=== PATIENT | female | born 1950 | race Caucasian/White ===

== ENCOUNTER 2018-12-13 10:35 | Outpatient (REF) | payer MEDICARE, OTHER, SELFPAY ==
[2018-12-13 22:49] LABS: Anion Gap 15.1 mmol/L (3-11); BUN 16 mg/dL (7-18); CO2 25.9 mmol/L (21.0-32.0); CREATININE 0.76 mg/dL (0.55-1.02); Calcium 9.5 mg/dL (8.5-10.1); Chloride 101 mmol/L (98-107); Glucose 96 mg/dL (70-100); Potassium 4.5 mmol/L (3.5-5.1); Sodium 142 mmol/L (136-145)
[2018-12-15 12:22] LABS: Lyme Ab w Rflx to Lyme Confirm Negative
[2018-12-16 16:12] LABS: Anaplasma phagocytophilum Negative (Negative); B. miyamotoi PCR Negative (Negative); Babesia divergens/MO-1 Negative (Negative); Babesia duncani Negative (Negative); Babesia microti Negative (Negative); Ehrlichia chaffeensis Negative (Negative); Ehrlichia ewingii/canis Negative (Negative); Ehrlichia muris eauclairensis Negative (Negative)
== END 2018-12-13 10:55 ==
LOC: NCHCN 10:35
PROVIDERS: PCP Physician Assistant Medical; Visit Provider Physician Assistant Medical
DX: I10 Essential (primary) hypertension (principal); R25.1 Tremor, unspecified
CPT/HCPCS: 80048; 87798; 86618

== ENCOUNTER 2019-03-02 20:49 | Outpatient (REF) | payer MEDICARE, OTHER, SELFPAY ==
[2019-03-02 21:53] LABS: ALT 32 U/L (14-59); AST 20 U/L (15-37); Albumin 3.9 g/dL (3.4-5.0); Alkaline Phosphatase 127 U/L (46-116); Anion Gap 9.2 mmol/L (3-11); BUN 19 mg/dL (7-18); Bilirubin, Total 0.3 mg/dL (0.2-1.0); CO2 26.8 mmol/L (21.0-32.0); CREATININE 0.98 mg/dL (0.55-1.02); Calcium 9.2 mg/dL (8.5-10.1); Calculated LDL 176 mg/dL; Chloride 105 mmol/L (98-107); Cholesterol 247 mg/dL (50-200); Estimated GFR 56.44 (mL/min/1.73m2); Glucose 110 mg/dL (70-100); HDL Cholesterol 40 mg/dL (40-60); Potassium 4.1 mmol/L (3.5-5.1); Sodium 141 mmol/L (136-145); Total Protein 7.7 g/dL (6.4-8.2); Triglyceride 158 mg/dL (30-150)
== END 2019-03-02 21:09 ==
LOC: NCHCN 20:49
PROVIDERS: PCP Physician Assistant Medical; Visit Provider Physician Assistant Medical
DX: E78.2 Mixed hyperlipidemia (principal)
CPT/HCPCS: 80053; 80061

== ENCOUNTER 2020-01-09 14:07 | Outpatient (REF) | payer MEDICARE, OTHER, SELFPAY ==
[2020-01-09 19:24] LABS: ALT 33 U/L (14-59); AST 20 U/L (15-37); Albumin 4.1 g/dL (3.4-5.0); Alkaline Phosphatase 125 U/L (46-116); Anion Gap 7.1 mmol/L (3-11); BUN 17 mg/dL (7-18); Bilirubin, Total 0.3 mg/dL (0.2-1.0); CO2 30.9 mmol/L (21.0-32.0); CREATININE 0.74 mg/dL (0.55-1.02); Calcium 9.4 mg/dL (8.5-10.1); Calculated LDL 187 mg/dL (<100); Chloride 104 mmol/L (98-107); Cholesterol 265 mg/dL (<200); Glucose 89 mg/dL (74-106); HDL Cholesterol 45 mg/dL (40-60); Potassium 4.4 mmol/L (3.5-5.1); Sodium 142 mmol/L (136-145); Total Protein 7.4 g/dL (6.4-8.2); Triglyceride 165 mg/dL (<150)
[2020-01-09 19:37] LABS: Hemoglobin A1C 6.2 % (3.8-5.6)
== END 2020-01-09 14:27 ==
LOC: NCHCN 14:07
PROVIDERS: PCP Physician Assistant Medical; Visit Provider Physician Assistant Medical
DX: R73.01 Impaired fasting glucose (principal); E78.2 Mixed hyperlipidemia
CPT/HCPCS: 80053; 80061; 83036

== ENCOUNTER 2020-01-28 14:46 | Emergency (ER) | payer MEDICARE, OTHER, SELFPAY ==
[2020-01-28] VITALS (33 sets, daily range): BP systolic 70–206; BP diastolic 11–160; PULSE 0–70; RESP 0–31; TEMP 36.5; O2SAT 89–100
--- NOTE | 2020-01-28 14:30 | RT.EKG_ITS ---
APPROVED REPORT Exam: Resting ECG Patient Location: E HR:24 bpm ECG Measurements Heart Rate 24 AXIS ND 161 P 87 QRSd 78 QRS 41 QT 488 T 51 QTc 311 Conclusion Sinus bradycardia...rate< 60 Prolonged ND interval...ND > 0, V-rate 0- 0. P waves visible. No STEMI
--- NOTE | 2020-01-28 15:00 | DI.RAD_ITS ---
EXAM: XR PORTABLE CHEST AP CLINICAL HISTORY: symptomatic bradycardia, r/o acute disease TECHNIQUE: COMPARISON: CR CHEST 2 VIEWS PA,LAT from 07/13/2009 FINDINGS: The heart is not enlarged. Multiple devices overlie the chest. Lungs are grossly clear and well exp anded. No gross pleural effusion on this frontal upright film. IMPRESSION: No evidence of acute process. RADIATION DOSE DELIVERED: Total DLP
--- NOTE | 2020-01-28 15:00 | RT.EKG_ITS ---
APPROVED REPORT Exam: Resting ECG Patient Location: E HR:30 bpm ECG Measurements Heart Rate 30 AXIS TN [id number] P [id number] QRSd 79 QRS 36 QT 522 T 40 QTc 367 Conclusion Junctional rhythm...absent P waves, slow V-rate. No STEMI. I have reviewed and interpreted ECG and agree with software generated interpretation.
--- NOTE | 2020-01-28 15:12 | W.ED.GENAD ---
Discharge Plan Disposition Patient Disposition: [facility] Condition: Critical Discharge Details Chief Complaint: Dizzy/Sync Clinical Impression: Symptomatic bradycardia Primary Care Provider: Lucita Alonzo ED Provider: Pennie Ferrera Home Meds and New Rx's Prescriptions: No Action lisinopril 20 MG tablet 20 mg PO DAILY RF: 0 atenolol 25 MG tablet 50 mg PO DAILY RF: 0 calcium carbonate-vitamin D3 1 EACH tablet 1 ea PO DAILY RF: 0 pantoprazole 20 MG tablet,delayed release (DR/EC) 40 mg PO DAILY RF: 0 hydrochlorothiazide 12.5 MG tablet 25 mg PO DAILY RF: 0 vitamin E mixed 1,000 UNIT capsule 1,000 unit PO DAILY RF: 0 CENTRUM SILVER TABLET 1 EACH tablet 1 ea PO DAILY RF: 0 aspirin 81 mg DAILY RF: 0 vitamin b 12 100 mg DAILY RF: 0 sertraline 50 MG tablet 50 mg PO DAILY RF: 0 loratadine [Claritin Liqui-Gel] 10 MG capsule 10 mg PO DAILY RF: 0 Discharge Data Discharge Date/Time-TO BE ENTERED AT DEPARTURE: 01/28/20 17:55 Medical Decision Making 1450 -- 69-year-old female with a history of hypertension and hyperlipidemia on atenolol presents for symptomatic bradycardia. Patient arrived to the ED with transcutaneous pacing at 70. Blood pressure on arrival 176/46. Pacing was held to obtain EKG which noted sinus bradycardia at 24. Patient's main complaint is dizziness and lower back pain. Call placed immediately to [facility] transfer center for cardiology consult. Cardiology reviewed the EKG and thought this appeared sinus and likely medication related. Requested holding transcutaneous pacing again in which heart rate decreased to the 20s to 30s and blood pressure 70/42. Repeat EKG noted absent P waves and junctional rhythm. Transcutaneous pacing restarted. A dose of 50 mcg fentanyl and 2 mg Versed ordered. Pt tolerated transcutaneous pacing well. Patient accepted for transfer to [facility]. Accepting physician Dr. Dumont. No recommended medication management at this time. Discussed with family and pt and agreeable with plan. 1700 -- Patient remained stable prior to transfer to [facility]. Patient tolerated transcutaneous pacing well and pain well controlled. Medical Records Medical records reviewed: Yes I reviewed the patient's medical records. Imaging Data Radiologic Study: Radiologist's impression: XR Chest, 1 View Exam date and time: 01/28/2020 4:04 PM Age: 69 years old Clinical indication: Other: Symptomatic bradycardia, R/O acute disease TECHNIQUE: Imaging protocol: XR of the chest Views: 1 view. COMPARISON: No relevant prior studies available. FINDINGS: Lungs: There are some minimal increased right lung base markings medially. Pleural space: Unremarkable. No pleural effusion. No pneumothorax. Heart/Mediastinum: Mild cardiomegaly. Bones/joints: Unremarkable. Other findings: There is some overlying equipment artifact. IMPRESSION: Mild right lower lobe atelectasis. Lab Data Lab results reviewed: Yes I reviewed the patient's lab results. Labs: Laboratory Tests Range/Units 01/28/20 01/28/20 01/28/20 15:20 15:20 15:20 WBC (4.4-10.8) 10^3/uL 10.20 RBC (3.93-5.22) 10^6/uL 4.26 Hgb (11.2-15.7) g/dL 12.4 Hct (36.0-46.0) % 39.0 MCV (80-95) fL 91.5 MCH (27.0-33.0) pg 29.1 MCHC (32.0-36.0) % 31.8 L RDW (11.7-14.6) % 13.1 Plt Count (130-400) 10^3/uL 339 MPV (8.0-11.0) fL 10.1 Immature Gran % 0.4 Neutrophils % 65.0 Lymphocytes % 22.2 Monocytes % 10.0 Eosinophils % 1.9 Basophils % 0.5 Nucleated RBC % % 0 Absolute Neutrophils (1.2-6.7) 10^3/uL 6.64 Absolute Lymphocytes (1.2-3.4) 10^3/uL 2.26 Absolute Monocytes (0.1-0.8) 10^3/uL 1.02 H Absolute Eosinophils (0.0-0.7) 10^3/uL 0.19 Absolute Basophils (0.0-0.2) 10^3/uL 0.05 PT (9.3-11.0) sec 9.9 INR (0.9-1.1) 1.0 APTT (21.0-31.4) sec 20.3 L Sodium (136-145) mmol/L 138 Potassium (3.5-5.1) mmol/L 4.9 Chloride (98-107) mmol/L 102 Carbon Dioxide (21.0-32.0) mmol/L 27.7 Anion Gap (3-11) mmol/L 8.3 BUN (7-18) mg/dL 23 H Creatinine (0.55-1.02) mg/dL 1.01 Estimated GFR/1.73 m2 (mL/min/1.73m2) 54.35 Glucose (74-106) mg/dL 87 Calcium (8.5-10.1) mg/dL 9.0 Magnesium (1.8-2.4) mg/dL 2.0 Total Bilirubin (0.2-1.0) mg/dL 0.3 AST (15-37) U/L 35 ALT (14-59) U/L 36 Alkaline Phosphatase (46-116) U/L 105 Troponin I (<0.06) ng/mL < 0.05 Total Protein (6.4-8.2) g/dL 7.0 Albumin (3.4-5.0) g/dL 3.3 L ECG Data Attestation: I personally reviewed and interpreted this ECG (s) as follows: Interpretation: #1 --Rate of 24, sinus, no acute ST elevation or depression. P waves visible. [place] 161. QRS 78. QTc 311. #2 --rate of 30. Junctional rhythm. No P waves visible. No acute ST elevation or depression. [place] 214. QRS 79. QTc 367. HPI General Mode of arrival: ambulatory. Date/Time Provider Initiated Documentation: 01/28/20 15:12. Limitations to Documentation: no limitations. Information obtained by: patient. HPI Narrative: Patient is a 69-year-old female with a history of hypertension hyperlipidemia who presents for complaints of dizziness, diaphoresis, shortness of breath and lower back pain that started while bending over at home just prior to arrival. Patient states she was cleaning out something and bent over to look for something and when she stood up she felt dizzy, diaphoretic with lower back pain. She sat down and felt like she was going to pass out. Her was then attempting to place her in the car to bring her to the hospital and he called 911. Upon EMS arrival, heart rate 40s with systolic blood pressure 89. She was given 0.5 mg of atropine with brief increase of heart rate to 70s and then it decreased back to 40s. She was then started on transcutaneous pacing and given 50 mcg of fentanyl and 2 mg of Versed IV. She was also given Zofran in route for nausea. Upon arrival, patient still complaining of dizziness and lower back pain. She denies any chest pain, shortness of breath, fever, cough, abdominal pain. She denies any recent illness, recent travel or known sick contacts. Related Data Home Medications Medication Instructions Recorded Confirmed Aspirin 81 mg DAILY 06/15/13 01/28/20 Centrum Silver Tablet 1 ea PO DAILY 06/15/13 01/28/20 Vitamin B 12 100 mg DAILY 06/15/13 01/28/20 atenolol 50 mg PO DAILY tab-cap 06/15/13 01/28/20 calcium carbonate-vitamin D3 1 ea PO DAILY 06/15/13 11/12/14 hydrochlorothiazide 25 mg PO DAILY tab-cap 06/15/13 01/28/20 lisinopril 20 mg PO DAILY 06/15/13 01/28/20 pantoprazole 40 mg PO DAILY tab-cap 06/15/13 01/28/20 vitamin E mixed 1,000 unit PO DAILY 06/15/13 01/28/20 loratadine [Claritin] 10 mg PO DAILY 12/26/13 01/28/20 sertraline 50 mg PO DAILY 12/26/13 01/28/20 Allergies Allergy/AdvReac Type Severity Reaction Status Date / Time No Known Allergies Allergy Unverified 01/28/20 20:25 General Stated Complaint: Dizzy/Sync SANTIAGO: 1 Review of Systems All systems reviewed & are unremarkable except as noted in HPI and below Constitutional Constitutional: Reports as per HPI, Denies chills and Denies fever(s) Eyes Eyes: Denies blurry vision ENT Ears, Nose, Mouth, and Throat: Reports dizziness, Denies sore throat and Denies throat swelling Cardiovascular Cardiovascular: Denies chest pain and Denies dyspnea Respiratory Respiratory: Denies cough and Denies dyspnea Gastrointestinal Gastrointestinal: Denies abdominal pain, Denies diarrhea and Denies vomiting Genitourinary Genitourinary: Denies hematuria and Denies dysuria Musculoskeletal Musculoskeletal: Reports back pain and Denies numbness Integumentary/Breasts Skin/Breast: Denies lesions and Denies rash Neurologic Neurologic: Reports dizziness, Denies localized weakness and Denies numbness Allergic/Immunologic Allergic/Immunologic: Denies throat swelling [facility] Medical History (Updated 01/28/20 @ 16:22 by Pennie Ferrera DO) Depression Disorder of stomach Hyperlipidemia Hypertension 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 uterine prolapse stage 2. rectocele stage2 Stress incontinence in female longstanding Surgical History Appendectomy 1964 Colonoscopy - IV Sedation 2010 Family History Mother Heart disease Hyperlipidemia Father Heart disease Hyperlipidemia Sister Hyperlipidemia Brother Diabetes Heart disease Hyperlipidemia Social History Smoking/Tobacco Use Status: Former Tobacco Use Drug use: Never Substance use type: does not use Do you feel safe at home: Yes Do you feel safe in your relationship?: Yes Exam Const General: cooperative, no acute distress and ill appearing acutely Orientation: alert, awake and oriented x3 HENMT Head: normal to inspection Face and sinus: normal facial exam Eyes General: appearance normal, both eyes and all related structures EOM: EOM intact bilaterally Neck Neck: normal visual inspection and No submandibular swelling Lymphatic: no lymphadenopathy noted Chest Chest: normal inspection of the chest and no tenderness Resp Effort & Inspection: normal respiratory effort and able to speak in complete sentences Auscultation: clear to auscultation bilaterally Cardio Rate: regular rate Rhythm: regular rhythm GI Inspection: normal to inspection Palpation: soft, not firm, not rigid and nontender Auscultation: normal bowel sounds Skin General skin exam: no rashes or lesions noted Neuro General: patient alert, patient awake and patient oriented x3 Cognition: normal cognition Speech: speech normal Motor: muscle tone normal throughout Sensory Exam: no sensory deficits noted Extrem General: normal to inspection, full ROM, capillary refill normal, no calf tenderness bilaterally and no edema Psych Appearance: grossly normal Mental Status: mental status grossly normal Speech and Movement: speech and movement normal Affect: normal affect Course Vital Signs Vital signs: Vital Signs Temperature 97.7 F 01/28/20 14:50 Pulse 70 01/28/20 14:50 Respiratory Rate 8 L 01/28/20 14:50 Blood Pressure 176/46 H 01/28/20 14:50 Pulse Oximetry 95 01/28/20 14:50 Temperature 97.7 F 01/28/20 14:50 Temperature Source Temporal Artery Scan 01/28/20 14:50 Pulse 70 01/28/20 14:50 Respiratory Rate 8 L 01/28/20 14:50 Respiratory Effort 01/28/20 15:08 Blood Pressure 176/46 H 01/28/20 14:50 Blood Pressure Position Supine 01/28/20 14:50 Pulse Oximetry 95 01/28/20 14:50 Oxygen Delivery Method Room Air 01/28/20 14:50 Oxygen Flow Rate 0 01/28/20 14:50 Critical Care Time Critical Care Time Total Critical Care Time: 60 Attestation: I spent 60 minutes of critical care time with this patient. This does not include time spent on separately reported billable procedures.
[2020-01-28] MEDS: Midazolam 2 MG/2 ML VIAL IVP (15:33)
[2020-01-28 15:35] LABS: Abs Immature Grans 0.04 10^3/uL (0.0-0.06); Absolute Basophil Count 0.05 10^3/uL (0.0-0.2); Absolute Eosinophil Count 0.19 10^3/uL (0.0-0.7); Absolute Lymphocyte Count 2.26 10^3/uL (1.2-3.4); Absolute Monocyte Count 1.02 10^3/uL (0.1-0.8); Absolute Neutrophil Count 6.64 10^3/uL (1.2-6.7); Basophils % 0.5; Eosinophils % 1.9; HGB 12.4 g/dL (11.2-15.7); Immature Grans % 0.4; Lymphocytes % 22.2; MCH 29.1 pg (27.0-33.0); MCHC 31.8 % (32.0-36.0); MCV 91.5 fL (80-95); MPV 10.1 fL (8.0-11.0); Nucleated RBC 0 %; Platelet Count 339 10^3/uL (130-400); RBC 4.26 10^6/uL (3.93-5.22); RDW 13.1 % (11.7-14.6); RDW-SD 44.3 fL
[2020-01-28] MEDS: fentaNYL 100 MCG/2 ML VIAL 50 MCG IVP (15:37)
[2020-01-28 15:51] LABS: PTT Activated 20.3 sec (21.0-31.4); Prothrombin Time 9.9 sec (9.3-11.0)
[2020-01-28 15:57] LABS: ALT 36 U/L (14-59); AST 35 U/L (15-37); Albumin 3.3 g/dL (3.4-5.0); Alkaline Phosphatase 105 U/L (46-116); Anion Gap 8.3 mmol/L (3-11); BUN 23 mg/dL (7-18); Bilirubin, Total 0.3 mg/dL (0.2-1.0); CO2 27.7 mmol/L (21.0-32.0); CREATININE 1.01 mg/dL (0.55-1.02); Chloride 102 mmol/L (98-107); Estimated GFR 54.35 (mL/min/1.73m2); Glucose 87 mg/dL (74-106); Sodium 138 mmol/L (136-145)
[2020-01-28 15:58] LABS: Potassium 4.9 mmol/L (3.5-5.1); Troponin I < 0.05 ng/mL (<0.06)
[2020-01-28] MEDS: Normal Saline 1,000 ML 1000 ML IV (16:05)
--- NOTE | 2020-01-28 16:20 | DI.VRAD_ITS ---
PROCEDURE INFORMATION: Exam: XR Chest, 1 View Exam date and time: 01/28/2020 4:04 PM Age: 69 years old Clinical indication: Other: Symptomatic bradycardia, R/O acute disease TECHNIQUE: Imaging protocol: XR of the chest Views: 1 view. COMPARISON: No relevant prior studies available. FINDINGS: Lungs: There are some minimal increased right lung base markings medially. Pleural space: Unremarkable. No pleural effusion. No pneumothorax. Heart/Mediastinum: Mild cardiomegaly. Bones/joints: Unremarkable. Other findings: There is some overlying equipment artifact. IMPRESSION: Mild right lower lobe atelectasis. Dictated and Authenticated by: Anita Cabrales MD. Ordering:CARLOS Casper MD
--- NOTE | 2020-01-28 17:08 | NUR.NOTE ---
1515 Last ate at 1130 had cheerios. [address] Cardiology Dr. Ferrera at bedside. Pacer turned off and B/P checked B/P 70/42 with a rate of 30 EKG machine reading as junctional.Nursing Note:
--- NOTE | 2020-01-28 17:13 | NUR.NOTE ---
1605 PCXR done. Nursing Note:
== END 2020-01-28 17:55 | disposition short-term general hospital (02) ==
LOC: ER 16:47
PROVIDERS: Emergency Provider Physician Assistant; PCP Physician Assistant Medical
DX: R00.1 Bradycardia, unspecified (principal); R42 Dizziness and giddiness; M54.5 Low back pain; I10 Essential (primary) hypertension
CPT/HCPCS: 36415; 80053; 92953; 93005; 96361; 96374; 96375; 99291; 71045; 83735; 84484; 85025; 85610; 85730; 93010; J2250; J3010

== ENCOUNTER 2020-02-17 15:17 | Outpatient (REF) | payer MEDICARE, OTHER, SELFPAY ==
[2020-02-17 19:25] LABS: Bilirubin Negative (Negative); Blood Negative (Negative); Clarity Sl Cloudy (Clear); Glucose Negative (Negative); Ketones Trace mg/dL (Negative); Leukocyte Esterase Large (Negative); Nitrite Negative (Negative); Specific Gravity 1.025 (1.005-1.025); Urobilinogen 0.2 EU/dL (Up TO 0.2); pH 5.5 (5-8)
[2020-02-17 19:38] LABS: Bacteria Moderate HPF (Negative); Casts Negative LPF (Negative); Crystals Negative HPF (Negative); Epithelial Cells Few HPF (Negative); Mucus Negative (Negative); RBC 0-2 HPF (0-2); WBC 20-50 HPF (0-5)
[2020-02-17 19:39] LABS: C & S Indicated? Yes
== END 2020-02-17 15:37 ==
LOC: NCHCN 15:17
PROVIDERS: PCP Physician Assistant Medical; Visit Provider Family Medicine
DX: R82.998 Other abnormal findings in urine (principal); M54.89 Other dorsalgia
CPT/HCPCS: 81003; 81015; 87086

== ENCOUNTER → 2020-03-06 13:46 | Outpatient (BNVA) | payer MEDICARE, OTHER, SELFPAY | PROVIDERS: PCP Physician Assistant Medical; Referring Provider Physician Assistant Medical; Visit Provider Internal Medicine Cardiovascular Disease | DX: R00.1 Bradycardia, unspecified (principal); I10 Essential (primary) hypertension | CPT/HCPCS: 99204; 99215 ==

== ENCOUNTER 2020-03-12 01:52 | Outpatient (CLI) | payer MEDICARE, OTHER, SELFPAY ==
--- NOTE | 2020-03-15 15:06 | W.HOLTRPT ---
Date of service: 03/15/20 Time of Service: 15:06 Holter Monitor Report Referring Provider:: tiff Indications:: bradycardia Holter Monitor Note: This is a 48-hour Holter monitor ordered for indication of bradycardia. ?Patient was in normal sinus rhythm for the majority of the recording with an average heart rate of 88 bpm (range 111 bpm - 75 bpm) ?The patient had no episodes of supraventricular tachycardia and 2 total PACs. ?There were no episodes of ventricular tachycardia and rare (0.4%) PVCs. ?There were no pauses greater than 3 seconds no episodes of atrial fibrillation and no evidence of high-grade heart block.
== END 2020-03-12 02:12 ==
PROVIDERS: PCP Physician Assistant Medical; Visit Provider Internal Medicine Cardiovascular Disease
DX: R00.1 Bradycardia, unspecified (principal); I49.1 Atrial premature depolarization
CPT/HCPCS: 93225

== ENCOUNTER 2020-03-15 13:55 | Outpatient (CLI) | payer MEDICARE, OTHER, SELFPAY | END 2020-03-15 14:15 | PROVIDERS: PCP Physician Assistant Medical; Visit Provider Physician Assistant Medical | DX: R00.1 Bradycardia, unspecified (principal); I49.1 Atrial premature depolarization | CPT/HCPCS: 93227; 93226 ==

== ENCOUNTER → 2020-10-19 10:24 | Outpatient (BNVA) | payer MEDICARE, OTHER, SELFPAY | PROVIDERS: PCP Physician Assistant Medical; Referring Provider Physician Assistant Medical; Visit Provider Internal Medicine Cardiovascular Disease | DX: R00.1 Bradycardia, unspecified (principal); I10 Essential (primary) hypertension | CPT/HCPCS: 99214 ==

== ENCOUNTER 2020-12-04 10:30 | Outpatient (REF) | payer MEDICARE, OTHER, SELFPAY ==
[2020-12-04 20:01] LABS: HCT 43.1 % (36.0-46.0); HGB 13.4 g/dL (11.2-15.7); MCH 28.5 pg (27.0-33.0); MCHC 31.1 % (32.0-36.0); MCV 91.5 fL (80-95); MPV 11.2 fL (8.0-11.0); Platelet Count 381 10^3/uL (130-400); RBC 4.71 10^6/uL (3.93-5.22); RDW 13.2 % (11.7-14.6); RDW-SD 44.4 fL; WBC 11.68 10^3/uL (4.4-10.8)
[2020-12-04 20:24] LABS: ESR 15 mm/hr (0-30)
[2020-12-04 20:37] LABS: ALT 52 U/L (14-59); AST 29 U/L (15-37); Alkaline Phosphatase 121 U/L (46-116); Anion Gap 9.9 mmol/L (3-11); BUN 17 mg/dL (7-18); Bilirubin, Total 0.2 mg/dL (0.2-1.0); CO2 28.1 mmol/L (21.0-32.0); CREATININE 0.9 mg/dL (0.55-1.02); Calcium 9.2 mg/dL (8.5-10.1); Chloride 104 mmol/L (98-107); Glucose 121 mg/dL (74-106); Potassium 4.6 mmol/L (3.5-5.1); Sodium 142 mmol/L (136-145); TSH (W/Ref FT4) 2.11 uIU/mL (0.36-3.74); Total Protein 7.4 g/dL (6.4-8.2); Vitamin B12 539 pg/mL (193-986)
== END 2020-12-04 10:31 | disposition home or self-care (01) ==
LOC: NCHCN 10:30
PROVIDERS: PCP Physician Assistant Medical; Visit Provider Family Medicine
DX: I10 Essential (primary) hypertension (principal); R51.9 Headache, unspecified
CPT/HCPCS: 80053; 85027; 85652; 82607; 84443

== ENCOUNTER 2021-10-03 10:54 | Outpatient (CLI) | payer MEDICARE, OTHER, SELFPAY ==
[2021-10-03 11:15] VITALS: BP 165/80; PULSE 83; RESP 22; TEMP 36.8; O2SAT 91
[2021-10-03 12:25] VITALS: BP 143/79; PULSE 75; RESP 16; TEMP 37.2; O2SAT 98
== END 2021-10-03 10:55 | disposition home or self-care (01) ==
LOC: INF 11:01
PROVIDERS: PCP Physician Assistant Medical; Visit Provider Family Medicine
DX: U07.1 COVID-19 (principal)
CPT/HCPCS: 96374; Q0222

== ENCOUNTER → 2021-11-15 00:50 | Outpatient (CLI) | payer MEDICARE, OTHER, SELFPAY ==
--- NOTE | 2021-11-15 15:00 | DI.MAMMO_ITS ---
Exam(s) MAMMO SCREENING EXAM: MAMMO SCREENING CLINICAL HISTORY: screening TECHNIQUE: Bilateral full field digital CC and MLO mammographic images were obtained with 3D tomosyn thesis and utilizing computer aided detection (CAD). COMPARISON: Available for comparison. FINDINGS: Masses/Architectural Distortion: None seen. Microcalcifications: No suspicious pleomorphic-type are seen. Skin Thickening/Nipple Retraction: None. IMPRESSION: 1. No significant interval change with no specific features of malignancy noted. 2. Unless there is more urgent need, screening mammography is recommended, as per [employer] guidelines. BI-RADS Category 1 - Negative Breast Density - Category A - Almost entirely fatty Breast density category C or D implies that the patient has dense breast tissue. Dense breast tissue is very common and is not abnormal but dense breast tissue can make it harder to find cancer on a ma mmogram. Also, dense breast tissue may increase their breast cancer risk. This information about the result of the mammogram report was provided to the patient to raise their awareness. Use this report when you speak with the patient about their risks for breast cancer, which includes their family hist ory. At that time, you may recommend for more screening tests (Ultrasound or MRI) as they might be us eful based on their risk. A negative radiographic report should not delay biopsy if a dominant or clinically suspicious mass is present. Up to ten percent of cancers are not identified on mammography. A negative report may reinforce clinical impression. Adenosis and dense breasts may obscure an underlying neoplasm. False positive reports average 6 to 10%. Patient will receive a letter notifying them of these results.
== END ==
PROVIDERS: PCP Physician Assistant Medical; Visit Provider Obstetrics & Gynecology Gynecology
DX: Z12.31 Encounter for screening mammogram for malignant neoplasm of breast (principal)
CPT/HCPCS: 77063; 77067

== ENCOUNTER → 2021-12-30 12:47 | Outpatient (BNVA) | payer MEDICARE, OTHER, SELFPAY | PROVIDERS: PCP Physician Assistant Medical; Referring Provider Physician Assistant Medical; Visit Provider Surgery | DX: Z86.010 Personal history of colon polyps (principal); Z12.11 Encounter for screening for malignant neoplasm of colon ==

== ENCOUNTER 2022-01-03 18:20 | Outpatient (REF) | payer MEDICARE, OTHER, SELFPAY ==
[2022-01-03 19:37] LABS: ESR 13 mm/hr (0-30)
[2022-01-03 19:39] LABS: HCT 37.4 % (36.0-46.0); MCH 29.1 pg (27.0-33.0); MCHC 32.1 % (32.0-36.0); MCV 91 fL (80-95); MPV 11.8 fL (8.0-11.0); Platelet Count 327 10^3/uL (130-400); RBC 4.13 10^6/uL (3.93-5.22); RDW 13.4 % (11.7-14.6); RDW-SD 44.5 fL; WBC 7.42 10^3/uL (4.4-10.8)
[2022-01-03 20:03] LABS: Hemoglobin A1C 5.6 % (<5.7)
[2022-01-03 20:18] LABS: Vitamin D 25 Total 27.6 ng/mL (30-100)
[2022-01-03 20:28] LABS: ALT 24 U/L (14-59); Albumin 3.7 g/dL (3.4-5.0); Alkaline Phosphatase 99 U/L (46-116); Anion Gap 7.8 mmol/L (3-11); BUN 14 mg/dL (7-18); Bilirubin, Total 0.2 mg/dL (0.2-1.0); CO2 27.2 mmol/L (21.0-32.0); CREATININE 0.8 mg/dL (0.55-1.02); Calcium 8.4 mg/dL (8.5-10.1); Chloride 107 mmol/L (98-107); Glucose 94 mg/dL (74-106); Magnesium 1.8 mg/dL (1.8-2.4); Potassium 3.8 mmol/L (3.5-5.1); Sodium 142 mmol/L (136-145); TSH (W/Ref FT4) 2.03 uIU/mL (0.36-3.74); Vitamin B12 447 pg/mL (193-986)
[2022-01-03 20:40] LABS: AST 24 U/L (15-37); C-Reactive Protein 0.07 mg/dL (0.0-0.3)
== END 2022-01-03 18:21 | disposition home or self-care (01) ==
LOC: NCHCN 18:20
PROVIDERS: PCP Physician Assistant Medical; Visit Provider Family Medicine
DX: R73.03 Prediabetes (principal); U07.1 COVID-19; R53.83 Other fatigue; I10 Essential (primary) hypertension; J44.9 Chronic obstructive pulmonary disease, unspecified; R20.2 Paresthesia of skin
CPT/HCPCS: 80053; 82306; 85027; 85652; 82607; 83036; 83735; 84443; 86140

== ENCOUNTER 2023-01-08 18:44 | Outpatient (REF) | payer MEDICARE, SELFPAY ==
[2023-01-08 18:59] LABS: HCT 39.3 % (36.0-46.0); HGB 12.4 g/dL (11.2-15.7); MCH 29.5 pg (27.0-33.0); MCHC 31.6 % (32.0-36.0); MCV 93 fL (80-95); MPV 11.3 fL (8.0-11.0); Platelet Count 450 10^3/uL (130-400); RBC 4.21 10^6/uL (3.93-5.22); RDW 14.1 % (11.7-14.6); RDW-SD 48.3 fL; WBC 10.47 10^3/uL (4.4-10.8)
[2023-01-08 19:20] LABS: ALT 31 U/L (14-59); AST 29 U/L (15-37); Albumin 3.8 g/dL (3.4-5.0); Alkaline Phosphatase 116 U/L (46-116); Anion Gap 3.7 mmol/L (3-11); BUN 14 mg/dL (7-18); Bilirubin, Total 0.2 mg/dL (0.2-1.0); CO2 31.3 mmol/L (21.0-32.0); CREATININE 0.9 mg/dL (0.55-1.02); Calcium 9.5 mg/dL (8.5-10.1); Chloride 105 mmol/L (98-107); Creatine Kinase 82 U/L (26-192); Estimated GFR 67.92 (mL/min/1.73m2); Glucose 122 mg/dL (74-106); Potassium 5.2 mmol/L (3.5-5.1); Sodium 140 mmol/L (136-145); Total Protein 7.5 g/dL (6.4-8.2)
[2023-01-08 19:38] LABS: Calculated LDL 53 mg/dL (<100); Cholesterol 151 mg/dL (<200); HDL Cholesterol 48 mg/dL (40-60); Triglyceride 250 mg/dL (<150)
[2023-01-08 19:48] LABS: Hemoglobin A1C 5.8 % (<5.7)
== END 2023-01-08 18:45 | disposition home or self-care (01) ==
LOC: NCHCN 18:44
PROVIDERS: PCP Physician Assistant Medical; Visit Provider Family Medicine
DX: R53.83 Other fatigue (principal); R73.03 Prediabetes; E78.2 Mixed hyperlipidemia; I10 Essential (primary) hypertension; R23.2 Flushing
CPT/HCPCS: 80053; 80061; 82550; 85027; 83036; 84443

== ENCOUNTER 2023-01-14 00:22 | Emergency (ER) | payer MEDICARE, OTHER, SELFPAY ==
[2023-01-14] VITALS (62 sets, daily range): BP systolic 113–142; BP diastolic 58–71; PULSE 69–90; RESP 13–28; TEMP 36.7; O2SAT 96–99
--- NOTE | 2023-01-14 00:15 | RT.EKG_ITS ---
APPROVED REPORT Exam: Resting ECG Reason for Exam: short of breath Patient Location: E HR:84 bpm ECG Measurements Heart Rate 84 AXIS MS 159 P 75 QRSd 72 QRS 32 QT 399 T 61 QTc 472 Conclusion Sinus rhythm...normal P axis, V-rate 60- 99
--- NOTE | 2023-01-14 00:45 | DI.CT_ITS ---
Exam(s) CT ABDOMEN PELVIS W EXAM: CT ABDOMEN PELVIS W CLINICAL HISTORY: abdominal pain. TECHNIQUE: Imaging Protocol: Axial computed tomography images with coronal and sagittal reformatted images were created and reviewed CONTRAST MATERIAL: Intravenous: Omnipaque 350 Contrast volume:100 ml Oral: yes / no COMPARISON: No exams were available for comparison FINDINGS: ABDOMEN: Lung Bases: Normal where visualized. Posterior diaphragmatic hernia containing mesenteric fat. Live r: Hepatic steatosis no measurable mass. Gallbladder and biliary tract: No radiodense calculus or dilation. Pancreas: Normal density, no abno rmal calcifications or inflammatory process. Spleen: Normal. Kidneys: Right kidney is located more superiorly than normal, posterior to the liver. Right renal cys t. No further follow-up recommended. Normal size, contour and axis. No radiodense stones or obstruct jesse uropathy. No suspicious masses seen. Adrenal glands: No masses seen. Abdominal Aorta: Abdominal portion non-dilated. Atherosclerotic changes with some luminal narrowing distally. Soft tissues: Unremarkable. PELVIS: Bladder: No gross wall thickening. No calculi.No focal mass. Bowel: Diverticulosis. No obstruction. No bowel wall thickening. Status post appendectomy. Peritoneal cavity: No ascites, collection or mesenteric inflammatory response. Bones: Degenerative changes of the hips, right greater left. Reproductive organs: Unremarkable. Pessary. Lymph nodes: Unremarkable. Impression: No acute abnormality in the the abdomen and pelvis. RADIATION DOSE DELIVERED: 940.56mGy.cm Total DLP DATA REPOSITORY: All CT scans at this facility are submitted to the National Radiology Data Registry (NRDR) Dose Index Registry (DIR) with the [employer] (A[employer]). RADIATION OPTIMIZATION: All CT scans at this facility use at least one of these dose optimization te chniques: automated exposure control; mA and/or kV adjustment per patient size (includes targeted exa ms where dose is matched to clinical indication); or iterative reconstruction.
--- NOTE | 2023-01-14 00:56 | ED.GENADUL_ITS ---
Discharge Plan Disposition Patient Disposition: Home Condition: Improving Discharge Details Clinical Impression: Allergic enteritis, Urticaria Primary Care Provider: Lucita Alonzo ED Provider: Mendoza Ashford Meds and New Rx's Prescriptions: New prednisone 10 mg tablets,dose pack 10 mg PO DIRECTED Qty: 21 0RF Rx Instructions: see taper instructions Continued diltiazem HCl 120 mg capsule,extended release 24 hr 120 mg PO BID hydralazine 25 mg tablet 50 mg PO BID ascorbic acid (vitamin C) 1,000 mg tablet 1 g PO BID Patient Comments: with clark hips albuterol sulfate [Ventolin HFA] 90 mcg/actuation HFA aerosol inhaler 2 puff inhalation QID PRN CENTRUM SILVER TABLET 1 EACH tablet 2 ea PO DAILY omeprazole 20 mg capsule,delayed release(DR/EC) 20 mg PO DAILY fluoxetine [Prozac] 20 mg capsule 20 mg PO DAILY fluticasone propionate [Flovent HFA] 220 mcg/actuation HFA aerosol inhaler 2 puff IH BID lisinopril 20 mg tablet 20 mg PO BID Claritin Liqui-Gel 10 MG capsule 10 mg PO DAILY rosuvastatin 5 mg tablet 5 mg PO QHS Patient Comments: TAKE 1 TABLET DAILY Discharge Instructions Instructions: Urticaria (ED) Discharge Data Discharge Date/Time-TO BE ENTERED AT DEPARTURE: 01/14/23 02:55 Discharge Physician: Mendoza Ashford Medical Decision Making MDM: Summary: Patient presents to the emergency department with a urticarial rash associated with abdominal distention nausea vomiting. She received Benadryl famotidine and Solu-Medrol in the emergency department intravenously. Also she received IV fluids she had labs which showed a mild elevation in white blood cell count and a CT of the abdomen and pelvis with contrast that did not show any intra- abdominal abnormality. Patient remained in the emergency department and the symptoms have resolved completely most likely this is allergic reaction to some food component so she will be tapered with steroids and discharge follow-up with her primary care physician Data Review Analysis All the data on this patient was reviewed by me including laboratory and imaging studies as well as bedside studies performed by me Independent review of Studies Imaging CT scan of the abdomen pelvis does not show any abnormality Lab: Labs social spinal elevation of the white blood cell count mild hypokalemia which has been replaced Risk Stratification: Patient has improved with most likely an allergic reaction to food who came with urticarial rash and allergy whose symptoms have resolved Differential Diagnosis: 1. Allergic enteritis 2. Gastroenteritis 3. Food poisoning 4. 5. Consultants: Shared disposition: Patient does feel better and will be discharged home Impression: Lab Data Lab results reviewed: Yes I reviewed the patient's lab results. ECG Data Attestation: I personally reviewed and interpreted this ECG (s) as follows: Interpretation: Her rate of 84 normal sinus rhythm normal axis no acute ST-T changes HPI General Date/Time Provider Initiated Documentation: 01/14/23 00:55 . HPI Narrative: Patient presents to the emergency department after she ate dinner tonight and states that she went to bed and woke up very itchy with nausea abdominal bloating had an episode of diarrhea and noticed that she had hives all over her body. Denies any chest pain denies any shortness of breath states that she is allergic to anything and states that her in the same food and did not experience any symptoms. Related Data Home Medications Medication Instructions Recorded Confirmed Centrum Silver Tablet 2 ea PO DAILY 06/15/13 01/14/23 loratadine 10 mg capsule (Claritin 10 mg PO DAILY 12/26/13 01/14/23 Liqui-Gel) fluoxetine 20 mg capsule (Prozac) 20 mg PO DAILY 02/14/20 01/14/23 fluticasone propionate 220 2 puff inhalation BID 02/14/20 01/14/23 mcg/actuation HFA aerosol inhaler (Flovent HFA) omeprazole 20 mg capsule,delayed 20 mg PO DAILY 02/14/20 01/14/23 release diltiazem HCl 120 mg capsule,24 120 mg PO BID 03/06/20 01/14/23 hr,extended release albuterol sulfate 90 mcg/actuation 2 puff inhalation QID PRN 10/19/20 01/14/23 aerosol inhaler (Ventolin HFA) ascorbic acid (vitamin C) 1,000 mg 1 g PO BID 10/19/20 01/14/23 tablet hydralazine 25 mg tablet 50 mg PO BID 10/19/20 01/14/23 lisinopril 20 mg tablet 20 mg PO BID 10/19/20 01/14/23 prednisone 10 mg tablets in a dose 10 mg PO DIRECTED #21 dose pk 01/14/23 pack rosuvastatin 5 mg tablet 5 mg PO QHS 01/14/23 01/14/23 Previous Rx's Medication Instructions Recorded prednisone 10 mg tablets in a dose 10 mg PO DIRECTED #21 dose pk 01/14/23 pack Allergies Allergy/AdvReac Type Severity Reaction Status Date / Time No Known Allergies Allergy Unverified 01/14/23 00:33 General Stated Complaint: Abd Prob SANTIAGO: 2 Review of Systems Narrative: Review of Systems: Constitutional: No fevers, chills, sweats Eye: No recent visual problems ENT: No ear pain, nasal congestion, sore throat Respiratory: No shortness of breath, cough Cardiovascular: No Chest pain, palpitations, syncope Genitourinary: No hematuria Néstor/Lymph: Negative for bruising tendency, swollen lymph glands Endocrine: Negative for excessive thirst, excessive hunger Musculoskeletal: No back pain, neck pain, joint pain, muscle pain, decreased range of motion Integumentary: No rash, pruritus, abrasions Neurologic: Alert & oriented X 4 Psychiatric: No anxiety, depression PFSH All Active Problems Allergic enteritis (Acute) Urticaria (Acute) Screening for colon cancer (Acute) Hx of colonic polyp (Acute) Bradycardia (Acute) Medical History Depression Disorder of stomach Hyperlipidemia Hypertension 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 uterine prolapse stage 2. rectocele stage2 Stress incontinence in female longstanding Urinary incontinence Vaginal pessary present Women's annual routine gynecological examination Surgical History Appendectomy 1964 Colonoscopy - IV Sedation 2009 Family History Mother Heart disease Hyperlipidemia Father Heart disease Hyperlipidemia Sister Hyperlipidemia Brother Diabetes Heart disease Hyperlipidemia Social History Smoking/Tobacco Use Status: Former Tobacco Use Tobacco: How many years used: 45 Smoking risk assessment performed?: Yes Alcohol Intake: current Alcohol Intake frequency: a few times a month Alcohol type: wine Drug use: Never Substance use type: does not use Household members: spouse Housing: house current occupation: retired. She and her were long distance truck drivers What type of physical activity do you participate in: walking and additional Details: I try to go for walks. Do you feel safe at home: Yes Do you feel safe in your relationship?: Yes History History 3 Para 3 Hx # Term Pregnancies Multiple births Hx # Pregnancies Ectopic pregnancies AB induced Hx Number of Living Children 3 AB spontaneous Exam Narrative Exam Narrative: Exam; vitals signs as reported above normal Constitutional; In no acute distress, afebrile General: cooperative, healthy appearing, comfortable and no acute distress HEENT: Head: normal to inspection, no palpable skull fracture and normocephalic atraumatic Eyes: : appearance normal, both eyes and all related structures EOM intact bilaterally Pupils: PERRL : conjunctiva normal Direct ophthalmoscopy: normal light reflex, normal conjunctiva, normal visual acuity Ears: Normal TM, normal external canal Neck no JVD, supple non tender Neck: normal visual inspection, full ROM and no lymphadenopathy Chest: normal inspection of the chest Respiratory : normal respiratory effort and able to speak in complete sentences no wheezing no rales Cardio Rate: regular rate, rhythm: regular rhythm normal heart sounds S1 and S2 no murmurs, gallops, or rubs GI : normal to inspection, normal bowel sounds, soft, non tender, non distended, no organomegaly Back/Spine/ no CVA tenderness Thoracic/Lumbar Spine: no tenderness or deformities Skin no rashes or lesions Neuro: patient alert and no meningeal signs, Cranial Nerves: CN's II-XI intact bilaterally, Cognition: normal cognition, Speech: speech normal, Gait: normal gait, Depp tendon reflexes normal 2+ muscle strength 5/5 bilaterally Extremities, no edema, full range of motion, normal strength Course Vital Signs Vital signs: Vital Signs Temperature 36.7 C 01/14/23 00:25 Pulse 90 01/14/23 00:25 Respiratory Rate 18 01/14/23 00:25 Blood Pressure 127/65 01/14/23 00:25 Pulse Oximetry 96 01/14/23 00:25 Temperature 36.7 C 01/14/23 00:25 Temperature Source Oral 01/14/23 00:25 Pulse 90 01/14/23 00:25 Respiratory Rate 18 01/14/23 00:25 Respiratory Effort Short of Breath 01/14/23 00:29 Blood Pressure 127/65 01/14/23 00:25 Blood Pressure Position Sitting 01/14/23 00:25 Pulse Oximetry 96 01/14/23 00:25 Oxygen Delivery Method Nasal Cannula 01/14/23 00:25 Oxygen Flow Rate 2.5 01/14/23 00:25 Pain Level 2 01/14/23 00:25 Comment SIGNIFICANT REBOUND TENDERNESS IN LLQ. DIFFUSE DISCOMFORT W/ PALPATION 01/14/23 00:25 PAWSS Have you Been Recently Intoxicated or Drunk Within the Last 30 days?: No Have you Ever Experienced Previous Episodes of Alcohol Withdrawal?: No Have you ever Experienced Withdrawal Seizures?: No Have you ever Experienced Delirium Tremens(DT)s?: No Have you ever undergone Alcohol Rehabilitation Treatment (i.e, inpt ot outpatient treatment programs)?: No Have you ever Experienced Blackouts?: No Have you ever Combined Alcohol with other Downers within the last 90 days?: No Have you ever Combined Alcohol with any other Substance of Abuse during the last 90 days?: No Positive Blood Alcohol level on Presentation? [PCS.BAL]: No Evidence of Increased Autonomic Activity (i.e. HR>120, tremor, sweating, agitation, nausea)?: No Result: 0
[2023-01-14 01:03] LABS: Abs Immature Grans 0.06 10^3/uL (0.0-0.06); Absolute Basophil Count 0.04 10^3/uL (0.0-0.2); Basophils % 0.3; HCT 40.4 % (36.0-46.0); HGB 12.6 g/dL (11.2-15.7); Immature Grans % 0.4; MCH 28.7 pg (27.0-33.0); MCHC 31.2 % (32.0-36.0); MCV 92 fL (80-95); MPV 10.1 fL (8.0-11.0); Monocytes % 9.6; Neutrophils % 54.7; Platelet Count 433 10^3/uL (130-400); RBC 4.39 10^6/uL (3.93-5.22); RDW 13.7 % (11.7-14.6); RDW-SD 46.5 fL; WBC 13.48 10^3/uL (4.4-10.8)
[2023-01-14 01:04] LABS: Absolute Eosinophil Count 0.67 10^3/uL (0.0-0.7); Absolute Lymphocyte Count 4.04 10^3/uL (1.2-3.4); Absolute Monocyte Count 1.29 10^3/uL (0.1-0.8); Absolute Neutrophil Count 7.37 10^3/uL (1.2-6.7)
[2023-01-14] MEDS: FAMOTIDINE 20 MG in Normal Saline 100 ML 400 MG IVPB (01:06)
[2023-01-14] MEDS: methylPREDNISolone SUCC 125 MG VIAL IVP (01:07)
[2023-01-14] MEDS: Normal Saline 1,000 ML 1000 ML IV (01:07)
[2023-01-14] MEDS: Omnipaque 350 MG/ML 100 ML BTL IJ (01:10)
[2023-01-14] MEDS: Normal Saline - Diluent 50 ML VIAL IJ (01:10)
[2023-01-14] MEDS: Normal Saline Flush 10 ML SYR IVP (01:11)
[2023-01-14 01:20] LABS: ALT 30 U/L (14-59); AST 22 U/L (15-37); Albumin 3.8 g/dL (3.4-5.0); Alkaline Phosphatase 111 U/L (46-116); Anion Gap 7.8 mmol/L (3-11); BUN 20 mg/dL (7-18); Bilirubin, Total 0.2 mg/dL (0.2-1.0); CO2 29.2 mmol/L (21.0-32.0); CREATININE 1.1 mg/dL (0.55-1.02); Calcium 9.3 mg/dL (8.5-10.1); Chloride 102 mmol/L (98-107); Estimated GFR 53.39 (mL/min/1.73m2); Glucose 124 mg/dL (74-106); Magnesium 1.8 mg/dL (1.8-2.4); Potassium 3.6 mmol/L (3.5-5.1); Sodium 139 mmol/L (136-145); Total Protein 7.3 g/dL (6.4-8.2)
--- NOTE | 2023-01-14 01:30 | DI.CT_ITS ---
Exam(s) CT CHEST WO EXAM: CT CHEST WO CLINICAL HISTORY: sob TECHNIQUE: Imaging Protocol: Axial computed tomography images with coronal and sagittal reformatted images were created and reviewed CONTRAST MATERIAL: Intravenous: Omnipaque 350 Contrast volume:structured data ml. COMPARISON: CR,XR XR PORTABLE CHEST AP from 01/28/2020 FINDINGS: Pulmonary parenchyma: No consolidation. No dominant measurable mass. Tracheobronchial tree: No bronchiectasis or mucous plugging. Mediastinum and Yamila: No dominant adenopathy or fluid collection. Pleura: No effusion or pneumothorax. Heart: The heart is mildly dilated. Moderate coronary artery calcifications are seen. Aorta: Thoracic aorta non-dilated. Mild to moderate atherosclerotic changes. Upper abdomen: Hepatic steatosis. Small hiatal hernia. Bones: Mild degenerative changes in the spine. Soft tissues: Unremarkable. Posterior diaphragmatic hernia containing fat. IMPRESSION: No acute abnormality. RADIATION DOSE DELIVERED: 405.37mGy.cm Total DLP DATA REPOSITORY: All CT scans at this facility are submitted to the National Radiology Data Registry (NRDR) Dose Index Registry (DIR) with the [employer] (A[employer]). RADIATION OPTIMIZATION: All CT scans at this facility use at least one of these dose optimization te chniques: automated exposure control; mA and/or kV adjustment per patient size (includes targeted exa ms where dose is matched to clinical indication); or iterative reconstruction.
--- NOTE | 2023-01-14 01:54 | DI.VRAD_ITS ---
PROCEDURE INFORMATION: Exam: CT Abdomen And Pelvis With Contrast Exam date and time: 01/14/2023 1:34 AM Age: 72 years old Clinical indication: Abdominal pain; Generalized; Prior surgery; Surgery date: 6+ months; Surgery type: Apendectomy at age 12; Patient HX: Abd pain, tenderness TECHNIQUE: Imaging protocol: Computed tomography of the abdomen and pelvis with contrast. Radiation optimization: All CT scans at this facility use at least one of these dose optimization techniques: automated exposure control; mA and/or kV adjustment per patient size (includes targeted exams where dose is matched to clinical indication); or iterative reconstruction. Contrast material: OMNIPAQUE 350; Contrast volume: 100 ml; Contrast route: INTRAVENOUS (IV); COMPARISON: CR XR PORTABLE CHEST AP 01/28/2020 3:57 PM FINDINGS: Diaphragm: Small hiatal hernia. Liver: Hepatic steatosis. Gallbladder and bile ducts: Normal. No calcified stones. No ductal dilation. Pancreas: Normal. No ductal dilation. Spleen: Normal. No splenomegaly. Adrenal glands: Normal. No mass. Kidneys and ureters: Right posterior diaphragmatic hernia containing fat and right renal upper pole. Right renal simple cyst, no further follow-up required. No hydronephrosis. Stomach and bowel: Colonic diverticula. Appendix: No evidence of appendicitis. Intraperitoneal space: Unremarkable. No free air. No significant fluid collection. Vasculature: Unremarkable. No abdominal aortic aneurysm. Lymph nodes: Unremarkable. No enlarged lymph nodes. Urinary bladder: Unremarkable as visualized. Reproductive: Status post hysterectomy. Bones/joints: Unremarkable. No acute fracture. Soft tissues: Unremarkable. IMPRESSION: No acute findings. Dictated and Authenticated by: Brijesh Cooley MD. Ordering:ANNA Donaldson MD
--- NOTE | 2023-01-14 01:58 | DI.VRAD_ITS ---
PROCEDURE INFORMATION: Exam: CT Chest Without Contrast; Diagnostic Exam date and time: 01/14/2023 1:44 AM Age: 72 years old Clinical indication: Shortness of breath; Patient HX: SOB TECHNIQUE: Imaging protocol: Diagnostic computed tomography of the chest without contrast. 3D rendering (Not supervised by radiologist): MIP and/or 3D reconstructed images were created by the technologist. Radiation optimization: All CT scans at this facility use at least one of these dose optimization techniques: automated exposure control; mA and/or kV adjustment per patient size (includes targeted exams where dose is matched to clinical indication); or iterative reconstruction. COMPARISON: CR XR PORTABLE CHEST AP 01/28/2020 3:57 PM FINDINGS: Lungs: Unremarkable. No consolidation. No masses. Pleural spaces: Unremarkable. No pneumothorax. No pleural effusion. Heart: Unremarkable. No cardiomegaly. No pericardial effusion. Lymph nodes: Unremarkable. No enlarged lymph nodes. Vasculature: Unremarkable. No aortic aneurysm. Diaphragm: Small hiatal hernia. Liver: Hepatic steatosis. Kidneys and ureters: Right posterior diaphragmatic hernia containing fat and upper pole of right kidney. Bones/joints: Unremarkable. No acute fracture. Soft tissues: Unremarkable. IMPRESSION: No acute finding. Dictated and Authenticated by: Brijesh Cooley MD. Ordering:ANNA Donaldson MD
== END 2023-01-14 02:55 | disposition home or self-care (01) ==
PROVIDERS: Emergency Provider Emergency Medicine Emergency Medical Services; PCP Physician Assistant Medical
DX: K52.29 Other allergic and dietetic gastroenteritis and colitis (principal); L50.9 Urticaria, unspecified
CPT/HCPCS: 71250; 80053; 93005; 96365; 96375; 99285; 74177; 83735; 85025; 93010; 99284; J2930; J3490

== ENCOUNTER → 2023-01-26 00:36 | Outpatient (CLI) | payer MEDICARE, SELFPAY ==
--- NOTE | 2023-01-26 09:15 | DI.NM_ITS ---
APPROVED REPORT Exam: Pharmacologic Patient Location: Out-Patient Room/Bed: Stress Nurse: Magaly Langston RN Ordering Provider:VASYL DANIELS, Contact Number: [phone] BMI: 32.95 Baseline Rhythm: Sinus Rhythm Indications: Dyspnea, chest pain Medical History Medical History: Bradycardia, HLD, HTN, depression, disorder of stomach, COPD Cardiac Medications: Rosuvastatin, prednisone, omeprazole, lisinopril, hydralazine, fluticasone, prop ionate inhaler, fluoxetine, diltiazem HCL, albuterol Allergies: NKA Cardiac Risk Factors: Family Hx, HTN, HLD, COPD Previous Cardiac Procedures: None Pretest Chest Pain Characteristics: None Exercise History: Sedentary Physical Disabilities: None Lung Sounds: Clear to auscultation Heart Sounds: Regular Stress Test Details Test: Exercise stress converted to pharmacologic stress due to failure to obtain a diagnostic stress test. Nuclear Acquisition: Rest Tc-99m/Stress Tc-99m 1 day Rest Isotope: Tc-99m Sestamibi. Dose: 9.8 Date: 01/26/2023 Injection Time: 0920 Stress Isotope: Tc-99m Sestamibi. Dose: 30 Date: 01/26/2023 Injection Time: 1112 HR Resting HR Supine: 69 bpm Max Heart Rate (APMHR): 148 bpm Resting HR Standin bpm Target HR (85% APMHR): 126 bpm Max HR Achieved: 106 bpm % of APMHR: 72 Recovery HR: 89 bpm HR response to stress: Normal HR response to stress BP Resting BP Supine: 160/78 mmHg Resting BP Standin/68 mmHg Max BP: 168/64 mmHg Recovery BP: 160/66 mmHg BP response to stress: Normal blood pressure response to stress. ECG Resting ECG: Sinus Rhythm Ectopy: None Stress ECG: Sinus Rhythm ST Change: No significant ST segment changes noted Arrhythmia: None Recovery ECG: Sinus Rhythm Recovery ST Change: No significant ST segment changes noted Recovery Arrhythmia: None Clinical Reason for Termination: Fatigue Rate Pressure Product: 74570 Stress ECG Conclusion 1. Resting electrocardiogram was within normal limits 2. Patient underwent testing using a combination of low-level exercise and pharmacologic stress with regadenoson 3. Peak heart rate achieved was 72% of predicted for age 4. Electrocardiographic portion of the test was nondiagnostic due to inadequate heart rate 5. See MPI report Stress Test Summary STAGE Time (mins) Speed (mph) Grade (%) HR BP SpO2 SYMPTOMS METS Supine 69 160/78 94 Standing 75 154/68 94 1 min post Lexiscan injection 95 168/64 88 THOMPSON, SOB 3 min post Lexiscan injection 92 162/70 95 6 min post Lexiscan injection 89 160/66 96 SOB resolved Started with Marcelo protocol, exercised for 20 seconds and due to physical limitation transitioned to walking lexiscan at 0.8MPH. Lexiscan given at 0200 exercise time MPI Conclusion Myocardial perfusion appears normal without ischemia or evidence of prior infarction Ejection fraction is 76% with normal wall motion
[2023-01-26] MEDS: Regadenoson 0.4 MG/5 ML SYR IVP (11:18)
== END ==
PROVIDERS: PCP Physician Assistant Medical; Visit Provider Family Medicine
DX: R07.89 Other chest pain (principal)
CPT/HCPCS: 78452; 93016; 93018; 93017; J2785

== ENCOUNTER → 2023-02-04 13:43 | Outpatient (BNVA) | payer MEDICARE, SELFPAY | PROVIDERS: PCP Physician Assistant Medical; Referring Provider Family Medicine; Visit Provider Surgery | DX: K52.29 Other allergic and dietetic gastroenteritis and colitis (principal) | CPT/HCPCS: 99213 ==

== ENCOUNTER 2023-02-12 08:55 | Day surgery (SDC) | payer MEDICARE, SELFPAY ==
--- NOTE | 2023-02-11 21:46 | W.PM.DSUDISC ---
Date of service: 02/12/23 Time of Service: 12:15 Discharge Plan Disposition Patient Disposition: Home Condition: Good Discharge Details Reason For Visit: Colonoscopy and EGD Attending Provider: Gee Carey Primary Care Provider: Pauline Hyman V Home Meds and New Rx's Prescriptions: Continued diltiazem HCl 120 mg capsule,extended release 24 hr 120 mg PO BID hydralazine 25 mg tablet 50 mg PO BID ascorbic acid (vitamin C) 1,000 mg tablet 1 g PO BID Patient Comments: with clark hips albuterol sulfate [Ventolin HFA] 90 mcg/actuation HFA aerosol inhaler 2 puff inhalation QID PRN bisacodyl [Dulcolax (bisacodyl)] 5 mg tablet,delayed release (DR/EC) 5 mg PO ONCE Qty: 4 0RF Rx Instructions: take per colonoscopy instructions CENTRUM SILVER TABLET 1 EACH tablet 2 ea PO DAILY omeprazole 20 mg capsule,delayed release(DR/EC) 20 mg PO DAILY fluoxetine [Prozac] 20 mg capsule 20 mg PO DAILY fluticasone propionate [Flovent HFA] 220 mcg/actuation HFA aerosol inhaler 2 puff IH BID lisinopril 20 mg tablet 20 mg PO BID Claritin Liqui-Gel 10 MG capsule 10 mg PO DAILY rosuvastatin 5 mg tablet 5 mg PO QHS Patient Comments: TAKE 1 TABLET DAILY Discontinued polyethylene glycol 3350 17 gram/dose powder 238 g PO ONCE Qty: 238 0RF Rx Instructions: take per colonoscopy instructions Discharge Instructions Additional Instructions: Dinah, we were able to complete your endoscopies today without any difficulty. Your prep was excellent. Your upper endoscopy all appeared normal to the naked eye. I did perform biopsies of your duodenum, multiple portions of your stomach, and your esophagus to see if I can help explain some of your abdominal pain. Otherwise, the upper endoscopy was totally fine. Your colonoscopy was also fairly reassuring. I did notice 2 small polyps. I removed these both completely. You also have some diverticulosis. Diverticula are weak spots that occur in the colon wall. They can become infected, and that typically results in abdominal pain. It is usually located on the left side or across the lower portion of the abdomen. Although it has some features of the abdominal pain that you have experienced, I am slightly skeptical that this is the true source. Similar to your upper endoscopy, I did perform multiple biopsies in the large intestine as well. Once I have the results of the polyp analysis, as well as all the biopsies I will be in touch. 1. If tolerated, consume a soft, low fiber diet for 1-2 days. [address] Do not drive, drink alcohol, operate machinery, make critical decisions, or do activities that require coordination or balance for 24 hours. 3. Because air was put into your colon during the procedure, expelling air from your rectum (passing gas or farting) is normal. 4. You may not have a bowel movement for 1-3 days because of the colonoscopy prep. This is normal. 5. Go directly to the emergency room if you notice any of the following: Develop chills (warm to touch), or if you have a thermometer and your temperature is above 101 Difficulty breathing or difficultly swallowing Persistent vomiting Severe abdominal pain, other than gas cramps Severe chest pain Black, tarry stools Any bleeding ? exceeding one tablespoon 6. Call your physician if the site where your intravenous was started becomes red, swollen, painful, and warm to touch. 7. Your physician has reviewed your pre-procedure medications. Please continue to take those medications as previously ordered. You will be given specific information/education regarding any changes to your medications before leaving. Stand Alone Forms: Anesthesia Discharge InstRae, Kaitlin Soriano (DSU) Activity:: Activity as Tolerated Diet:: As Tolerated Discharge Orders Discharge Orders: Discharge Order (Routine); Ordered 02/11/23 Ordered By: Gee Carey DS: Diagnosis Discharge Diagnosis (1) Screening for colon cancer: Status: Acute Asessment and Plan: I will follow-up on biopsy results
--- NOTE | 2023-02-11 21:48 | W.PM.ENDDOP ---
Date of service: 02/12/23 Time of Service: 11:46 Endoscopy Report DATE OF PROCEDURE: 02/12/23 PRE-OP DIAGNOSIS: Abdominal pain POST-OP DIAGNOSIS: other (Colon polyps, diverticulosis) PROCEDURE: EGD with biopsies and colonoscopy with biopsies and polypectomy SURGEON: Gee Carey ANESTHESIA TYPE: General:No Airway ESTIMATED BLOOD LOSS: 20 PATHOLOGY: other (Random biopsies of duodenum, gastric antrum and body, esophagus; random colon biopsies, colon polyp at 70 cm, colon polyp at 45 cm) COMPLICATIONS: None DISPOSITION: same day INDICATIONS: Approximately 6 to 8 weeks ago, however, she started to develop intermittent diarrhea.? At first, she did not think much of it.? However approximately 3 weeks ago it was associated with some abdominal discomfort and nausea with distention.? She was seen in the emergency department.? She underwent a CAT scan of the abdomen and pelvis that was negative.? At that time, the diarrhea may have also been associated with some darkening of the stools, with some intermittent almost dark black stools.? Since then, her rosuvastatin was stopped, and she has had some mild improvement with regards to the frequency of her diarrhea, but is not gone completely.? Otherwise, she feels in her usual state of health.? She offers no specific complaints otherwise.? She has been taking omeprazole for gastroesophageal reflux disease for a number of years. PREP: Miralax/Dulcolax PROCEDURE START TIME: 10:58 PROCEDURE END TIME: 11:24 COLONOSCOPY RETRACTION TIME: 14 FINDINGS: Normal-appearing EGD with GE junction at 36 cm; 0.25 cm polyp at 70 cm from the anus, 0.25 cm polyp at 45 cm, sigmoid diverticulosis PROCEDURE DESCRIPTION: After the initiation of monitored anesthetic care, and with the assistance of a bite block, I advanced a standard gastroscope through the mouth past the hypopharynx and into the esophagus.? Under the direct vision of the scope, I advanced down the esophagus into the stomach.? Once I entered the stomach, I performed a brief inspection, followed by retroflexion towards the gastric cardia.? This appeared normal.? After that, I gently advanced the scope around the incisura angularis and examined the pylorus.? This also appeared normal.? Next, I advanced the scope through the pylorus into the duodenum.? The mucosa was pink and healthy appearing.?I was able to visualize bile draining into the duodenum through the ampulla Vater. I perform random biopsies of the duodenum using cold forceps. There was minimal bleeding. ?Next, I began retracting the endoscope. once I was back in the stomach, I did perform biopsies of the gastric antrum and the gastric body. This was also done with cold forceps, with minimal bleeding. The GE junction was measured approximately 36 cm from the incisors. The Z-line was normal and regular appearing. I did not see any signs of Cary's esophagus. Next, I withdrew the camera along the length of the esophagus taking great care to examine all of the mucosa. I did not see any signs of diverticula, webs, or other strictures. I did perform random biopsies of the esophagus as well. We then assisted Dinah into the left lateral decubitus position, I began by performing an external anorectal exam.? Perineum and skin were normal, as was the anal verge.? There was no evidence of external hemorrhoids.? Next, I performed a digital rectal exam.? I did not appreciate any abnormal findings.? Next, I advanced a colonoscope into the rectal vault.? I performed retroflexion.? This appeared normal using insufflation, I then advanced the colonoscope beyond the rectal folds and into the sigmoid colon before advancing towards the cecum.? The quality of the prep was excellent.? The scope was noted to be in the cecum by identification of the ileocecal valve and appendiceal orifice.? I then began withdrawing the colonoscope using repeated irrigation as necessary for full evaluation of the colonic mucosa. Around 70 cm from the anal verge I identified a 0.25 cm polyp. ?It appeared sessile in character. ?I was able to remove this with a cold forcep polypectomy. ?I examined the site, and there was minimal bleeding. ?Once this was completed, I continued to withdraw the scope and examine the remainder of the colonic mucosa. Similarly, I found another 0.25 cm polyp at 45 cm from the anus. I remove this with cold forceps as well. ?Once the scope was withdrawn to the level of the rectum, great care was taken to examine portions of the rectal folds.? Finally, the scope was withdrawn and the patient was brought to the same-day surgery recovery unit as the anesthetic wore off. ?The findings and instructions were shared with the patient prior to discharge.
[2023-02-12 09:06] VITALS: BP 127/63; PULSE 77; RESP 17; TEMP 36.5; O2SAT 95
[2023-02-12] MEDS: Lactated Ringers 1,000 ML 80 ML IV (09:30)
--- NOTE | 2023-02-12 09:31 | ANES.PREOP_ITS ---
General Info Date of Service Date Performed: 02/12/23 Height: 4 ft 8 in Weight: 65.9 kg Body Mass Index (BMI): 32.5 Surgical Procedure: Operation Date: 02/12/23 10:35 Proposed Procedure Side Surgeon p Colonoscopy/Gastroscopy Gee Carey MD Meds Allergies and Home Medications Allergies Allergy/AdvReac Type Severity Reaction Status Date / Time No Known Allergies Allergy Verified 02/12/23 09:18 Home Medication Medication Instructions Recorded Centrum Silver Tablet 2 ea PO DAILY 06/15/13 loratadine 10 mg capsule (Claritin 10 mg PO DAILY 12/26/13 Liqui-Gel) fluoxetine 20 mg capsule (Prozac) 20 mg PO DAILY 02/14/20 fluticasone propionate 220 2 puff inhalation BID 02/14/20 mcg/actuation HFA aerosol inhaler (Flovent HFA) omeprazole 20 mg capsule,delayed 20 mg PO DAILY 02/14/20 release diltiazem HCl 120 mg capsule,24 120 mg PO BID 03/06/20 hr,extended release albuterol sulfate 90 mcg/actuation 2 puff inhalation QID PRN 10/19/20 aerosol inhaler (Ventolin HFA) ascorbic acid (vitamin C) 1,000 mg 1 g PO BID 10/19/20 tablet hydralazine 25 mg tablet 50 mg PO BID 10/19/20 lisinopril 20 mg tablet 20 mg PO BID 10/19/20 rosuvastatin 5 mg tablet 5 mg PO QHS 01/14/23 bisacodyl 5 mg tablet,delayed 5 mg PO ONCE colonscopy bowel prep 02/04/23 release (Dulcolax (bisacodyl)) #4 tabs Current Visit Medications: Current Medications Generic Name Dose Route Start Last Admin Trade Name Freq PRN Reason Stop Dose Admin Hyoscyamine Sulfate 0.125 mg 02/11/23 21:49 Hyoscyamine 0.125 Mg Sl/Oral/Chew SL 03/13/23 21:48 DIRECTED PRN Ringer's Solution 1,000 mls @ 80 mls/hr 02/12/23 06:00 02/12/23 09:30 IV 03/13/23 23:59 80 mls/hr INFUSION PAULINA Administration IV Miscellaneous Supplies 1 each 02/12/23 06:00 Iv Access IV 03/13/23 23:59 DIRECTED PAULINA Ondansetron HCl 4 mg 02/11/23 21:49 Ondansetron 4 Mg/2 Ml Vial IVP 03/13/23 21:48 Q4H PRN PRN Nausea / Vomiting Sodium Chloride 0 ml 02/12/23 06:00 Normal Saline Flush 10 Ml Syr IV 03/13/23 23:59 PRN PRN Sodium Chloride 0 ml 02/12/23 06:00 Normal Saline 10 Ml Vial IJ 03/13/23 23:59 DIRECTED PRN Sterile Water 0 ml 02/12/23 06:00 Water,Injection,Sterile 10 Ml Vial IJ 03/13/23 23:59 DIRECTED PRN PFSH Active Problems Active Problems: Problem Status Onset Code Bradycardia R00.1 Hx of colonic polyp Z86.010 Screening for colon cancer Z12.11 Allergic enteritis K52.29 Urticaria L50.9 Medical History Medical History COPD (chronic obstructive pulmonary disease) Depression Disorder of stomach pt unable to specify, states diarrhea. 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 uterine prolapse stage 2. rectocele stage2 Stress incontinence in female longstanding Urinary incontinence Vaginal pessary present Women's annual routine gynecological examination Surgical History Surgical History Appendectomy 1964 Colonoscopy - IV Sedation 2009 Tobacco Smoking/Tobacco Use Status: Former Tobacco Use Alcohol Alcohol Intake: current Alcohol intake frequency: a few times a week Alcohol type: wine Substance Use Substance use: Never Substance use type: does not use Prental History History 3 Para 3 Hx # Term Pregnancies Multiple births Hx # Pregnancies Ectopic pregnancies AB induced Hx Number of Living Children 3 AB spontaneous Vital Signs and Lab Results Vital Signs Most Recent Vital Signs in EMR: Most Recent Vital Signs Temp Pulse Resp BP Pulse Ox 36.5 C 77 17 127/63 95 02/12/23 09:06 02/12/23 09:06 02/12/23 09:06 02/12/23 09:06 02/12/23 09:06 Lab Results Blood Type / Crossmatch: No Data to Display Complete Blood Count: White Blood Count 13.48 10^3/uL (4.4-10.8) H 01/14/23 00:31 Red Blood Count 4.39 10^6/uL (3.93-5.22) 01/14/23 00:31 Hemoglobin 12.6 g/dL (11.2-15.7) 01/14/23 00:31 Hematocrit 40.4 % (36.0-46.0) 01/14/23 00:31 Platelet Count 433 10^3/uL (130-400) H 01/14/23 00:31 Complete Metabolic Panel: Sodium 139 mmol/L (136-145) 01/14/23 00:31 Potassium 3.6 mmol/L (3.5-5.1) 01/14/23 00:31 Chloride 102 mmol/L (98-107) 01/14/23 00:31 Carbon Dioxide 29.2 mmol/L (21.0-32.0) 01/14/23 00:31 BUN 20 mg/dL (7-18) H 01/14/23 00:31 Creatinine 1.1 mg/dL (0.55-1.02) H 01/14/23 00:31 Est GFR (CKD-EPI 2020) 53.39 (mL/min/1.73m2) 01/14/23 00:31 Magnesium 1.8 mg/dL (1.8-2.4) 01/14/23 00:31 Calcium 9.3 mg/dL (8.5-10.1) 01/14/23 00:31 Albumin 3.8 g/dL (3.4-5.0) 01/14/23 00:31 Glucose 124 mg/dL (74-106) H 01/14/23 00:31 Liver Function Panel: Alanine Aminotransferase (ALT/SGPT) 30 U/L (14-59) 01/14/23 00: 31 Aspartate Amino Transf (AST/SGOT) 22 U/L (15-37) 01/14/23 00:31 Coagulation Panel: No Data to Display Cardiac Panel: No Data to Display Arterial Blood Gas: No Data to Display Venous Blood Gas: No Data to Display Pancreas Panel: No Data to Display Thyroid Panel: No Data to Display Infectious Disease: No Data to Display Blood Cultures: No Data to Display Toxicology Panel: No Data to Display Imaging and Studies Imaging and Studies Study information below may be from another EMR and interpreted by another provider. Please see original notes in EMR for more complete details. EKG Summary: 01/28: sinus. Stress Test Summary: 01/28: 72% predicted HR, ECG nondiagnostic. perfusion without ischemia or infarct. EF 76%. Anesthesia Assessment and Plan Anesthesia History Personal History: No History of Anesthesia Complications Family History: No Family History of Anesthesia Complications Exercise Tolerance Exercise Tolerance: Metabolic Equivalents>4 Cardiac & Pulmonary Exam Cardiac Exam: Normal S1/S2 Heart Sounds Pulmonary Exam: Clear Bilateral Breath Sounds Implantable Cardiac Device Does patient have a Pacemaker or an ICD?: No Airway Exam Known Difficult Airway: No Mallampati Class: 4 Mouth Opening: Narrow (< 3cm) Thyromental Distance: Less than 3 cm Neck Range of Motion: Full ROM Neck Circumference: Normal Teeth Condition: Removable Dentures/Plates Upper and Removable Dentures/Plates Lower ASA Classification ASA Score: ASA 2 Emergency Case?: No NPO Status NPO Status: NPO Clears >2 hours, Solids >8 hours Anesthesia Plan Resuscitation Status: Full Code Anesthesia Technique: General Anesthesia Airway Planned: Natural Airway Monitors Used: Standard Monitors Preoperative Comments:: 72 yo female for EGD/colo. Sig PMHx: COPD (albut, flovent, breathing feels good today), HTN (dilt, hydralazine, lisinopril. 120-140 at home), depression, GERD (omeprazole, well controlled and watches what she eats), former smoker, occ EtOH.
[2023-02-12 09:36] VITALS: BMI 32.5
[2023-02-12 10:20] VITALS: BMI 32.5
--- NOTE | 2023-02-12 11:02 | BOWEL_PTH ---
PATIENT: Dinah Hyde LOC: [facility] U#:[id number] AGE/SX: 72/F ROOM: RE02/12/[address]: Gee Carey MD : 1950 BED: DIS: 02/12/2023 SPEC #: [id number] RECD: 02/12/23 12:10 STATUS: NOLA RE #: [id number] RHONDA: 02/12/23 11:[address]: Gee Carey DEPT: Surgical Specimen RECD BY: Lorna June ENTERED: 02/12/23 12:13 SP TYPE: Bowel OTHR DR: Pauline Hyman V Tissues: 1 - STOMACH BIOPSY 2 - STOMACH BIOPSY 3 - STOMACH BIOPSY 4 - ESOPHAGUS BIOPSY 5 - BIOPSY BOWEL 6 - BIOPSY BOWEL 7 - BIOPSY BOWEL Procedures: GROSS AND MICRO LEVEL 4 SPECIAL STAIN 1 Comments: [id number]
[2023-02-12 11:32] VITALS: BP 108/51; PULSE 66; RESP 22; TEMP 36; O2SAT 94
--- NOTE | 2023-02-12 11:42 | W.ANESPOSTOP ---
Postoperative Evaluation Date, Time and Location Date Performed: 02/12/23 Time Performed: 11:44 Patient Location: Day Surgery Unit Vital Signs Most Recent Imported Vital Signs: Most Recent Vital Signs Temp Pulse Resp BP Pulse Ox 36 C L 66 22 108/51 L 94 02/12/23 11:32 02/12/23 11:32 02/12/23 11:32 02/12/23 11:32 02/12/23 11:32 Pain Score Most Recent Pain Score: Most Recent Pain Score Pain Level 0 02/12/23 11:32 Assessment Mental Status: Arousable with meaningful communication Airway and Respiratory Function: Patent airway with normal (patient baseline) respiratory exam Cardiovascular Function: Hemodynamically Stable Hydration Status: Adequately Hydrated Nausea & Vomiting: No Nausea or Vomiting Pain: Pt. Denies Any Pain Peripheral Nerve Block: Patient did not receive a nerve block
[2023-02-12 12:11] VITALS: BP 105/53; PULSE 72; RESP 18; TEMP 37.1; O2SAT 98
== END 2023-02-12 12:41 | disposition home or self-care (01) ==
PROVIDERS: PCP Family Medicine; Visit Provider Surgery
PROC: (CPT 45380; principal; 2023-02-12 10:30)
DX: K63.5 Polyp of colon (principal); K57.30 Diverticulosis of large intestine without perforation or abscess without bleeding; K21.9 Gastro-esophageal reflux disease without esophagitis; R19.7 Diarrhea, unspecified; R10.9 Unspecified abdominal pain; J44.9 Chronic obstructive pulmonary disease, unspecified; I10 Essential (primary) hypertension; E78.5 Hyperlipidemia, unspecified; K31.89 Other diseases of stomach and duodenum
CPT/HCPCS: 45380; 43239; 88305; 88312

== ENCOUNTER 2023-12-07 10:46 | Observation (INO) | payer MEDICARE, SELFPAY ==
[2023-12-07] VITALS (71 sets, daily range): BP systolic 110–166; BP diastolic 37–132; PULSE 76–104; RESP 5–36; TEMP 35.7–37.2; O2SAT 88–99
--- NOTE | 2023-12-07 10:45 | DI.RAD_ITS ---
Exam(s) XR PORTABLE CHEST AP EXAM: XR PORTABLE CHEST AP CLINICAL HISTORY: cough shortness of breath. TECHNIQUE: 2D digital imaging was performed. COMPARISON: CR,XR XR PORTABLE CHEST AP from 01/28/[address] CHEST WO from 01/14/2023 FINDINGS: Single AP portable view. Heart size is upper normal. The mediastinum is not widened. Left lung is clear. There is a fat density mass in the lower right lung zone just above the hemidiap hragm. This most probably corresponds to a posterior diaphragmatic hernia containing fat at this lev el, as seen on CT scan of January 2023. Pleural effusions. IMPRESSION: Right-sided finding as described above. DATA REPOSITORY: RADIATION DOSE DELIVERED:
--- NOTE | 2023-12-07 10:45 | RT.EKG_ITS ---
APPROVED REPORT Exam: Resting ECG Reason for Exam: SOB Patient Location: E HR:92 bpm ECG Measurements Heart Rate 92 AXIS AR 151 P 75 QRSd 74 QRS 22 QT 358 T 74 QTc 443 Conclusion Sinus rhythm. 92 normal xis no stemi
[2023-12-07] MEDS: Albuterol/Ipratropium 3 ML UPD VIAL (10:56)
[2023-12-07 11:06] LABS: Abs Immature Grans 0.14 10^3/uL (0.0-0.06); Absolute Eosinophil Count 0.04 10^3/uL (0.0-0.7); Absolute Monocyte Count 1.68 10^3/uL (0.1-0.8); Absolute Neutrophil Count 16.27 10^3/uL (1.2-6.7); Basophils % 0.4 %; Eosinophils % 0.2 %; HCT 38.1 % (36.0-46.0); HGB 12.2 g/dL (11.2-15.7); Immature Grans % 0.7 %; Lymphocytes % 6.6 %; MCH 29.4 pg (27.0-33.0); MCV 92 fL (80-95); MPV 9.8 fL (8.0-11.0); Monocytes % 8.6 %; Neutrophils % 83.5 %; Platelet Count 473 10^3/uL (130-400); RBC 4.15 10^6/uL (3.93-5.22); RDW 13.2 % (11.7-14.6); RDW-SD 44.2 fL; WBC 19.48 10^3/uL (4.4-10.8)
[2023-12-07 11:12] LABS: Absolute Basophil Count 0.08 10^3/uL (0.0-0.2); Absolute Lymphocyte Count 1.29 10^3/uL (1.2-3.4)
[2023-12-07 11:20] LABS: Diff Comment Diff Reviewed; RBC Morphology Normal
[2023-12-07 11:27] LABS: ALT 34 U/L (14-59); AST 19 U/L (15-37); Albumin 3.6 g/dL (3.4-5.0); Alkaline Phosphatase 121 U/L (46-116); Anion Gap 9.6 mmol/L (3-11); BUN 11 mg/dL (7-18); Bilirubin, Total 0.54 mg/dL (0.2-1.0); CO2 29.4 mmol/L (21.0-32.0); CREATININE 0.9 mg/dL (0.55-1.02); Calcium 8.9 mg/dL (8.5-10.1); Chloride 99 mmol/L (98-107); Glucose 164 mg/dL (74-106); Potassium 3.5 mmol/L (3.5-5.1); Sodium 138 mmol/L (136-145); Total Protein 8.1 g/dL (6.4-8.2); Troponin I 57 ng/L (< or =60)
--- NOTE | 2023-12-07 11:27 | ED.GENADUL_ITS ---
Discharge Plan Disposition Patient Disposition: Admit to [facility] Discharge Details Clinical Impression: COPD exacerbation Primary Care Provider: Pauline Hyman V ED Provider: Reynaldo Kolb Home Meds and New Rx's Prescriptions: No Action diltiazem HCl 120 mg capsule,extended release 24 hr 120 mg PO BID hydralazine 25 mg tablet 50 mg PO BID ascorbic acid (vitamin C) 1,000 mg tablet 1 g PO BID Patient Comments: with clark hips albuterol sulfate [Ventolin HFA] 90 mcg/actuation HFA aerosol inhaler 2 puff inhalation QID PRN CENTRUM SILVER TABLET 1 EACH tablet 2 ea PO DAILY omeprazole 20 mg capsule,delayed release(DR/EC) 20 mg PO DAILY fluoxetine [Prozac] 20 mg capsule 20 mg PO DAILY fluticasone propionate [Flovent HFA] 220 mcg/actuation HFA aerosol inhaler 2 puff IH BID lisinopril 20 mg tablet 20 mg PO BID Claritin Liqui-Gel 10 MG capsule 10 mg PO DAILY rosuvastatin 5 mg tablet 5 mg PO QHS Patient Comments: TAKE 1 TABLET DAILY HPI General Mode of arrival: ambulatory . Date/Time Provider Initiated Documentation: 12/07/23 10:53 . Limitations to Documentation: no limitations . Information obtained by: patient and RN notes reviewed . History of Present Illness 73 year old F presents to the emergency department with the chief complaint of Worsening shortness of breath with cough, described as moderate, Patient started experiencing this month(s) (1) and it has been constant. No relieving factors improve symptom(s), No exacerbating factors reported . Related Data Home Medications Medication Instructions Recorded Confirmed Centrum Silver Tablet 2 ea PO DAILY 06/15/13 12/07/23 loratadine 10 mg capsule (Claritin 10 mg PO DAILY 12/26/13 12/07/23 Liqui-Gel) fluoxetine 20 mg capsule (Prozac) 20 mg PO DAILY 02/14/20 12/07/23 fluticasone propionate 220 2 puff inhalation BID 02/14/20 12/07/23 mcg/actuation HFA aerosol inhaler (Flovent HFA) omeprazole 20 mg capsule,delayed 20 mg PO DAILY 02/14/20 12/07/23 release diltiazem HCl 120 mg capsule,24 120 mg PO BID 03/06/20 12/07/23 hr,extended release albuterol sulfate 90 mcg/actuation 2 puff inhalation QID PRN 10/19/20 12/07/23 aerosol inhaler (Ventolin HFA) ascorbic acid (vitamin C) 1,000 mg 1 g PO BID 10/19/20 12/07/23 tablet hydralazine 25 mg tablet 50 mg PO BID 10/19/20 12/07/23 lisinopril 20 mg tablet 20 mg PO BID 10/19/20 12/07/23 rosuvastatin 5 mg tablet 5 mg PO QHS 01/14/23 12/07/23 Allergies Allergy/AdvReac Type Severity Reaction Status Date / Time No Known Allergies Allergy Verified 12/07/23 10:58 General Stated Complaint: RespSymp SANTIAGO: 3 Review of Systems Constitutional Constitutional: Denies chills, Denies fever(s), Denies headache(s), Reports lethargy and Reports malaise ENT Ears, Nose, Mouth, and Throat: Denies headache(s), Denies nasal congestion and Denies sore throat Cardiovascular Cardiovascular: Denies chest pain and Reports dyspnea Respiratory Respiratory: Reports chest congestion, Reports cough and Reports dyspnea Gastrointestinal Gastrointestinal: Denies abdominal pain Neurologic Neurologic: Denies headache(s) Exam Const General: cooperative, no acute distress and not diaphoretic Orientation: alert, awake and oriented x3 Limitations: mental status not altered Neck Neck: normal visual inspection, full ROM, trachea midline, supple and no anterior neck swelling Resp Effort & Inspection: cough Quality of cough: actively coughing and tachypneic Auscultation: wheezes expiratory wheezes Cardio Jugular venous pressure: no JVD Palpation: normal PMI Rate: tachycardic Rhythm: regular rhythm Heart Sounds: S1 normal, S2 normal, no click, no gallops and no murmurs Skin General skin exam: no rashes or lesions noted Neuro General: patient alert, patient awake, patient oriented x3, tone normal and moves all extremities Course Vital Signs Vital signs: Vital Signs Temperature 37.2 C 12/07/23 10:47 Pulse 104 H 12/07/23 10:47 Respiratory Rate 32 H 12/07/23 10:47 Blood Pressure 166/62 H 12/07/23 10:47 Pulse Oximetry 95 12/07/23 10:47 Temperature 37.2 C 12/07/23 10:47 Temperature Source Temporal Artery Scan 12/07/23 10:47 Pulse 104 H 12/07/23 10:47 Respiratory Rate 32 H 12/07/23 10:47 Respiratory Effort Short of Breath 12/07/23 10:56 Respiratory Depth Shallow 12/07/23 10:56 Blood Pressure 166/62 H 12/07/23 10:47 Blood Pressure Position Sitting 12/07/23 10:47 Pulse Oximetry 95 12/07/23 10:47 Oxygen Delivery Method Nasal Cannula 12/07/23 10:47 Oxygen Flow Rate 3 12/07/23 10:47 Lab/Test Results Lab/Test Results: 12/07/23 10:53 Blood Blood Culture - Pending 12/07/23 10:53 Blood Blood Culture - Pending Laboratory Tests Range/Units 12/07/23 12/07/23 10:51 11:01 WBC (4.4-10.8) 10^3/uL 19.48 H RBC (3.93-5.22) 10^6/uL 4.15 Hgb (11.2-15.7) g/dL 12.2 Hct (36.0-46.0) % 38.1 MCV (80-95) fL 92 MCH (27.0-33.0) pg 29.4 MCHC (32.0-36.0) % 32.0 RDW (11.7-14.6) % 13.2 Plt Count (130-400) 10^3/uL 473 H MPV (8.0-11.0) fL 9.8 Immature Gran % % 0.7 Neutrophils % % 83.5 Lymphocytes % % 6.6 Monocytes % % 8.6 Eosinophils % % 0.2 Basophils % % 0.4 Nucleated RBC % (0.0-0.3) % 0.0 Absolute Neutrophils (1.2-6.7) 10^3/uL 16.27 H Absolute Lymphocytes (1.2-3.4) 10^3/uL 1.29 Absolute Monocytes (0.1-0.8) 10^3/uL 1.68 H Absolute Eosinophils (0.0-0.7) 10^3/uL 0.04 Absolute Basophils (0.0-0.2) 10^3/uL 0.08 RBC Morphology Normal Troponin I Cancelled Medical Decision Making Patient presenting to the emergency department for chief complaint of shortness of breath. Patient reports that she has had cough and cold-like symptoms for the past month with symptoms slowly worsening causing her to come in today for assessment. She does have COPD and wears oxygen at night but typically does not need any during the day. Patient otherwise has past medical history of hypertension and hyperlipidemia. Other past medical history I do not feel is contributory. Patient denies any fever or chills but does state some malaise and fatigue. Physical exam shows significant tachypnea tachycardia and greenhouse staff reported O2 sat of 87% on room air. Lung sounds show diffuse expiratory wheezing without focal finding and exam is otherwise noncontributory. Patient started on nasal cannula oxygen, DuoNeb ordered along with labs and chest x-ray. Please see physician interpretation for full read of EKG but upon my review patient is in sinus rhythm, rate of 92, does not meet acute STEMI criteria. Reviewed patient's labs that does show a significant leukocytosis, CMP unrem arkable, negative troponin, BNP slightly elevated at 383 patient is negative for COVID flu RSV. Chest x-ray does show slight pleural effusions and some potential finding of a diaphragmatic hernia otherwise is negative. Reassessed patient and states very slight improvement but still having some shortness of breath so we will give additional DuoNebs and steroids for suspected COPD exacerbation. Patient given a total of 3 DuoNeb's and 125 of Solu-Medrol, patient at rest did have continued improvement of symptoms but as soon as she got up to ambulate to the bathroom had significant severe shortness of breath. Oxygen on room air remained at 92% which I feel is an improvement but given persistent tachypnea I do feel the patient would benefit from continued monitoring, nebulizers as needed, and further steroids along with doxycycline for COPD exacerbation. Patient is in agreement with this plan of care and I will contact hospitalist for discussion. Discussed case with hospitalist who agreed to have patient admitted for further treatment and evaluation of COPD exacerbation Imaging Data Radiologic Study: Imaging: X-Ray Radiologist's impression: FINDINGS: Single AP portable view. Heart size is upper normal. The mediastinum is not widened. Left lung is clear. There is a fat density mass in the lower right lung zone just above the hemidiaphragm. This most probably corresponds to a posterior diaphragmatic hernia containing fat at this level, as seen on CT scan of January 2023. Pleural effusions. IMPRESSION: Right-sided finding as described above. Quality:SDOH Health Related Social Needs: No Data to Display PFSH All Active Problems (Updated 12/07/23 @ 16:00 by Reynaldo Kolb NP) COPD exacerbation (Acute) Candidiasis, esophageal (Acute) Bradycardia (Acute) Hx of colonic polyp (Acute) Screening for colon cancer (Acute) Medical History COPD (chronic obstructive pulmonary disease) Women's annual routine gynecological examination Urinary incontinence Vaginal pessary present Hypertension Hyperlipidemia Depression Stress incontinence in female longstanding Disorder of stomach pt unable to specify, states diarrhea. 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 uterine prolapse stage 2. rectocele stage2 Surgical History Colonoscopy - IV Sedation (~02/2023) 2009 Appendectomy 1964 Family History Mother Heart disease Hyperlipidemia Father Heart disease Hyperlipidemia Sister Hyperlipidemia Brother Diabetes Heart disease Hyperlipidemia Social History Smoking/Tobacco Use Status: Former Tobacco Use Quit Date: 06/08/97 Tobacco: How many years used: 45 Smoking risk assessment performed?: Yes Alcohol Intake: current Alcohol Intake frequency: a few times a week Alcohol type: wine Drug use: Never Substance use type: does not use Household members: spouse Housing: house current occupation: retired. She and her were long distance truck drivers What type of physical activity do you participate in: walking and additional Details: I try to go for walks. Do you feel safe at home: Yes Do you feel safe in your relationship?: Yes History History 3 Para 3 Hx # Term Pregnancies Multiple births Hx # Pregnancies Ectopic pregnancies AB induced Hx Number of Living Children 3 AB spontaneous
[2023-12-07 11:56] LABS: COVID-19 PCR Negative (Negative); Influenza A PCR Negative (Negative); Influenza B PCR Negative (Negative); RSV PCR Negative (Negative)
[2023-12-07 11:58] LABS: Source Nasopharynx
[2023-12-07 12:16] LABS: NT-proBNP 383 pg/mL (<300)
[2023-12-07] MEDS: methylPREDNISolone SUCC 125 MG VIAL IVP (14:10)
[2023-12-07] MEDS: Albuterol/Ipratropium 3 ML UPD VIAL UPD ×3 (14:32→20:13)
[2023-12-07] MEDS: Normal Saline Flush 10 ML SYR IVP ×3 (15:32→22:07)
[2023-12-07] MEDS: DOXYCYCLINE 100 MG in Normal Saline 100 ML IVPB (16:08)
--- NOTE | 2023-12-07 16:18 | W.PM.HP.N ---
Date of service: 12/07/23 Time of Service: 16:18 Assessment and Plan Assessment and plan (1) COPD exacerbation: Status: Acute Assessment and plan: Oral prednisone PPI Doxycycline mucinex Tessalon PRN albuterol Scheduled duonebs (2) Hypertension: Assessment and plan: home regimen with cardizem CD, lisinopril and hydralazine (3) Hyperlipidemia: Assessment and plan: continue home med Discussed with Dr. Krueger History of Present Illness History of Present Illness Chief Complaint: Worsening shortness of breath, increased cough Narrative: This 73 years old female patient with a past medical history of HTN, hyperlipidemia, COPD on oxygen at night presented to the ED at [facility] today for evaluation of worsening shortness of breath with cough. The patient reported experiencing a mild cough a month ago was getting better but then had worsening respiratory symptoms with malaise and fatigue. In the ED the patient denied fevers, chills. Reported findings of O2 of 87 on room air with tachypnea and tachycardia. The EKG showed the patient in a sinus rhythm with a heart rate of [address] elevation. Remarkable labs showed a WBC of 19.48, ANC of 16.27 and a BNP of 383. Troponins was 57. Finding on chest x-ray describe a fat density mass in the lower right lung zone just above the hemidiaphragm most likely corresponding to the posterior diaphragmatic hernia containing fat as seen on the CT done in January 2023. Pleural effusions also described in the report. Cephalization observed on this film without being able to localize small effusions. In the ED the patient received IV Solu-Medrol and 3 DuoNeb's with improvement but sustained tachycardia and increased shortness of breath when ambulating. Review of Systems All systems reviewed & are unremarkable except as noted in HPI and below PFSH All Active Problems COPD exacerbation (Acute) Candidiasis, esophageal (Acute) Bradycardia (Acute) Hx of colonic polyp (Acute) Screening for colon cancer (Acute) Medical History COPD (chronic obstructive pulmonary disease) Women's annual routine gynecological examination Urinary incontinence Vaginal pessary present Hypertension Hyperlipidemia Depression Stress incontinence in female longstanding Disorder of stomach pt unable to specify, states diarrhea. 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 uterine prolapse stage 2. rectocele stage2 Surgical History Colonoscopy - IV Sedation (~02/2023) 2010 Appendectomy 1964 Family History Mother Heart disease Hyperlipidemia Father Heart disease Hyperlipidemia Sister Hyperlipidemia Brother Diabetes Heart disease Hyperlipidemia Social History Smoking/Tobacco Use Status: Former Tobacco Use Quit Date: 06/08/97 Tobacco: How many years used: 45 Smoking risk assessment performed?: Yes Alcohol Intake: current Alcohol Intake frequency: a few times a week Alcohol type: wine Drug use: Never Substance use type: does not use Household members: spouse Housing: house current occupation: retired. She and her were long distance truck drivers What type of physical activity do you participate in: walking and additional Details: I try to go for walks. Do you feel safe at home: Yes Do you feel safe in your relationship?: Yes History History 3 Para 3 Hx # Term Pregnancies Multiple births Hx # Pregnancies Ectopic pregnancies AB induced Hx Number of Living Children 3 AB spontaneous Meds Allergies and Home Medications Allergies Allergy/AdvReac Type Severity Reaction Status Date / Time No Known Allergies Allergy Verified 12/07/23 10:58 Home Medications Medication Instructions Recorded Confirmed Type Centrum Silver Tablet 2 ea PO DAILY 06/15/13 12/07/23 History loratadine 10 mg capsule (Claritin 10 mg PO DAILY 12/26/13 12/07/23 History Liqui-Gel) fluoxetine 20 mg capsule (Prozac) 20 mg PO DAILY 02/14/20 12/07/23 History fluticasone propionate 220 2 puff inhalation BID 02/14/20 12/07/23 History mcg/actuation HFA aerosol inhaler (Flovent HFA) omeprazole 20 mg capsule,delayed 20 mg PO DAILY 02/14/20 12/07/23 History release diltiazem HCl 120 mg capsule,24 120 mg PO BID 03/06/20 12/07/23 History hr,extended release albuterol sulfate 90 mcg/actuation 2 puff inhalation QID PRN 10/19/20 12/07/23 History aerosol inhaler (Ventolin HFA) ascorbic acid (vitamin C) 1,000 mg 1 g PO BID 10/19/20 12/07/23 History tablet hydralazine 25 mg tablet 50 mg PO BID 10/19/20 12/07/23 History lisinopril 20 mg tablet 20 mg PO BID 10/19/20 12/07/23 History rosuvastatin 5 mg tablet 5 mg PO QHS 01/14/23 12/07/23 History Exam Narrative Exam Narrative: HENMT: Head is atraumatic, normocephalic, no lymphadenopathy. Facial structures with normal appearance Eyes: Well aligned, intact ROM Neck: Normal ROM, no meningeal signs Neuro:alert and oriented X4 Chest:Chest with increased A/P diameter Resp: 3-5-word sentences, labored breathing, diminished breath sounds bilaterally Cardio: regular rhythm, S1, S2, no murmur, capillary refill<3 sec., bilateral radial and dorsalis pedis pulses are positive, palpable GI: Abdomen is not distended, soft and epigastric tenderness, bowel sounds are present Integumentary: No skin lesions or rash Extremities: strength 5/5 to bilateral lower and upper extremities Psych: RASS 0, congruent mood and normal affect. Results Labs 12/07/23 10:51 12/07/23 10:51 Labs: Laboratory Results - last 24 hr 12/07/23 12/07/23 10:51 11:01 WBC 19.48 H RBC 4.15 Hgb 12.2 Hct 38.1 MCV 92 MCH 29.4 MCHC 32.0 RDW 13.2 Plt Count 473 H MPV 9.8 Immature Gran % 0.7 Neutrophils % 83.5 Lymphocytes % 6.6 Monocytes % 8.6 Eosinophils % 0.2 Basophils % 0.4 Nucleated RBC % 0.0 Absolute Neutrophils 16.27 H Absolute Lymphocytes 1.29 Absolute Monocytes 1.68 H Absolute Eosinophils 0.04 Absolute Basophils 0.08 RBC Morphology Normal Sodium 138 Potassium 3.5 Chloride 99 Carbon Dioxide 29.4 Anion Gap 9.6 BUN 11 Creatinine 0.9 Est GFR (CKD-EPI 2020) 67.50 Glucose 164 H Calcium 8.9 Total Bilirubin 0.54 AST 19 ALT 34 Alkaline Phosphatase 121 H Troponin I 57 Cancelled NT-Pro-B Natriuret Pep 383 H Total Protein 8.1 Albumin 3.6 COVID-19 Source Nasopharynx SARS-CoV-2 (PCR) Negative Influenza Type A (PCR) Negative Influenza Type B (PCR) Negative RSV (PCR) Negative Last Vital Signs Temp 37.2 C 12/07/23 10:47 Pulse 88 12/07/23 15:31 Resp 15 12/07/23 15:31 BP 110/54 L 12/07/23 15:31 Pulse Ox 96 12/07/23 15:31 Time Spent Time spent with Patient: >75 minutes Time was spent: preparing to see the patient(eg.review tests), obtaining and/or reviewing separately otained hiistory, ordering medications,tests, procedures, referring, communicating with other health home care physical therapist, indepentently interpreting results, counseling the patient and care coordination
[2023-12-07] MEDS: Enoxaparin 40 MG/0.4 ML SYR SC (18:13)
[2023-12-07] MEDS: Pantoprazole 40 MG VIAL IVP (18:14)
--- NOTE | 2023-12-07 18:21 | RESPIRATORY ---
12/07/2023 Pt is currently on 2L NC while inpatient. Pt states she wears 1.5L O2 at home only at night; patient states [facility] as her DME.
[2023-12-07 18:27] LABS: Troponin I < 50 ng/L (< or =60)
--- NOTE | 2023-12-07 18:27 | W.PC.ACHO ---
Registration Status: ADM ROSE MARY Primary Language: Preferred Language: Greenlandic ED Information & Data Chief Complaint RespSymp 12/07/23 11:27 Triage Note Patient complaining of SOB 12/07/23 10:47 for 1 month. Everyday getting worse. PMH of COPD. O2 87% RA Medical / Surgical History (Last Reviewed 12/07/23 @ 17:14 by Kenyetta Guthrie APRN) COPD (chronic obstructive pulmonary disease) Women's annual routine gynecological examination Urinary incontinence Vaginal pessary present Hypertension Hyperlipidemia Depression Stress incontinence in female Disorder of stomach Prolapse of female genital organs (Last Reviewed 12/07/23 @ 14:23 by Reynaldo Kolb NP) Colonoscopy - IV Sedation (~02/2023) Appendectomy Most Recent Vital Signs Temperature 36.7 C 12/07/23 17:41 Temperature Source Skin 12/07/23 17:41 Pulse 88 12/07/23 17:41 Pulse Rhythm Regular 12/07/23 17:38 Pulse 87 12/07/23 17:16 Respiratory Rate 24 12/07/23 17:41 Respiratory Effort Short of Breath, Labored 12/07/23 17:38 Respiratory Depth Shallow 12/07/23 17:38 Respiratory Pattern Tachypnea 12/07/23 17:38 Blood Pressure 122/61 12/07/23 17:41 Blood Pressure Mean 69 12/07/23 17:16 Blood Pressure Position Sitting 12/07/23 10:47 Pulse Oximetry 95 12/07/23 17:41 Oxygen Delivery Method Nasal Cannula 12/07/23 17:41 Oxygen Flow Rate 2 12/07/23 17:41 Pain Level 3 12/07/23 18:14 Comment Aches and pain for the past 2 weeks. 12/07/23 17:41 Allergies No Known Allergies Allergy (Verified 12/07/23 10:58) Precautions Isolation Standard precaution 12/07/23 10:56 Active Medications Generic Name Dose Route Start Last Admin Trade Name Freq PRN Reason Stop Dose Admin Enoxaparin Sodium 40 mg 12/07/23 18:00 12/07/23 18:13 Enoxaparin 40 Mg/0.4 Ml Syr SC 40 mg Q24H PAULINA Administration Sodium Chloride 0 ml 12/07/23 17:39 12/07/23 18:17 Normal Saline Flush 10 Ml Syr IVP 20 ml PRN PRN Administration IV IV Catheter Type [Right Peripheral IV Antecubital] IV Catheter Gauge [Right 18 Antecubital] Diet Orders Category Date Time Status Heart Healthy Eating [DIET] Nutrition 12/07/23 Dinner Active Diagnostics 12/07/23 12/07/23 12/07/23 Range/Units 20:12 18:00 11:01 WBC (4.4-10.8) 10^3/uL RBC (3.93-5.22) 10^6/uL Hgb (11.2-15.7) g/dL Hct (36.0-46.0) % MCV (80-95) fL MCH (27.0-33.0) pg MCHC (32.0-36.0) % RDW (11.7-14.6) % Plt Count (130-400) 10^3/uL MPV (8.0-11.0) fL Immature Gran % % Neutrophils % % Lymphocytes % % Monocytes % % Eosinophils % % Basophils % % Nucleated RBC % (0.0-0.3) % Absolute Neutrophils (1.2-6.7) 10^3/uL Absolute Lymphocytes (1.2-3.4) 10^3/uL Absolute Monocytes (0.1-0.8) 10^3/uL Absolute Eosinophils (0.0-0.7) 10^3/uL Absolute Basophils (0.0-0.2) 10^3/uL RBC Morphology Sodium (136-145) mmol/L Potassium (3.5-5.1) mmol/L Chloride (98-107) mmol/L Carbon Dioxide (21.0-32.0) mmol/L Anion Gap (3-11) mmol/L BUN (7-18) mg/dL Creatinine (0.55-1.02) mg/dL Est GFR (CKD-EPI 2020) (mL/min/1.73m2) Glucose (74-106) mg/dL Calcium (8.5-10.1) mg/dL Total Bilirubin (0.2-1.0) mg/dL AST (15-37) U/L ALT (14-59) U/L Alkaline Phosphatase (46-116) U/L Troponin I Pending Pending Cancelled (< or =60) ng/L NT-Pro-B Natriuret Pep (<300) pg/mL Total Protein (6.4-8.2) g/dL Albumin (3.4-5.0) g/dL COVID-19 Source SARS-CoV-2 (PCR) (Negative) Influenza Type A (PCR) (Negative) Influenza Type B (PCR) (Negative) RSV (PCR) (Negative) 12/07/23 Range/Units 10:51 WBC 19.48 H (4.4-10.8) 10^3/uL RBC 4.15 (3.93-5.22) 10^6/uL Hgb 12.2 (11.2-15.7) g/dL Hct 38.1 (36.0-46.0) % MCV 92 (80-95) fL MCH 29.4 (27.0-33.0) pg MCHC 32.0 (32.0-36.0) % RDW 13.2 (11.7-14.6) % Plt Count 473 H (130-400) 10^3/uL MPV 9.8 (8.0-11.0) fL Immature Gran % 0.7 % Neutrophils % 83.5 % Lymphocytes % 6.6 % Monocytes % 8.6 % Eosinophils % 0.2 % Basophils % 0.4 % Nucleated RBC % 0.0 (0.0-0.3) % Absolute Neutrophils 16.27 H (1.2-6.7) 10^3/uL Absolute Lymphocytes 1.29 (1.2-3.4) 10^3/uL Absolute Monocytes 1.68 H (0.1-0.8) 10^3/uL Absolute Eosinophils 0.04 (0.0-0.7) 10^3/uL Absolute Basophils 0.08 (0.0-0.2) 10^3/uL RBC Morphology Normal Sodium 138 (136-145) mmol/L Potassium 3.5 (3.5-5.1) mmol/L Chloride 99 (98-107) mmol/L Carbon Dioxide 29.4 (21.0-32.0) mmol/L Anion Gap 9.6 (3-11) mmol/L BUN 11 (7-18) mg/dL Creatinine 0.9 (0.55-1.02) mg/dL Est GFR (CKD-EPI 2020) 67.50 (mL/min/1.73m2) Glucose 164 H (74-106) mg/dL Calcium 8.9 (8.5-10.1) mg/dL Total Bilirubin 0.54 (0.2-1.0) mg/dL AST 19 (15-37) U/L ALT 34 (14-59) U/L Alkaline Phosphatase 121 H (46-116) U/L Troponin I 57 (< or =60) ng/L NT-Pro-B Natriuret Pep 383 H (<300) pg/mL Total Protein 8.1 (6.4-8.2) g/dL Albumin 3.6 (3.4-5.0) g/dL COVID-19 Source Nasopharynx SARS-CoV-2 (PCR) Negative (Negative) Influenza Type A (PCR) Negative (Negative) Influenza Type B (PCR) Negative (Negative) RSV (PCR) Negative (Negative) 12/07/23 12:05 Blood Culture - Pending Blood 12/07/23 11:55 Blood Culture - Pending Blood Intake and Output - 24 Hour Total 12/07/23 10:46 thru 12/07/23 17:38 Intake Total 110 Balance 110 Weight 66 kg Intake: IV 110 Falls Risk Assessment History of Falls No History 12/07/23 17:38 Contributing Factors No Factors 12/07/23 17:38 Ambulatory Aids Independent 12/07/23 17:38 Tubes/Lines None 12/07/23 17:38 Gait Evaluation No gait disturbance 12/07/23 17:38 Cognition No cognitive impairment 12/07/23 17:38 Fall Total Score 0 12/07/23 17:38 Level of Risk Standard/Low Risk 12/07/23 17:38 Problems (Last Reviewed 12/07/23 @ 17:14 by Kenyetta Guthrie APRN) COPD exacerbation (Acute) Notes 12/07/23 18:21 Respiratory by Gale Javier 12/07/2023 Pt is currently on 2L NC while inpatient. Pt states she wears 1.5L O2 at home only at night; patient states [facility] as her DME. Initialized on 12/07/23 18:21 - END OF NOTE v v v v v v v v v Sending and/or Receiving Nurses: Please use comment section below to note any information pertinent to the patient hand-off not included above. Information / Comments: 73yo F COPD exacerbation compaint of SOB one month said o2 82% getting worse evday hyperlipidemia, cancer everywhere, COPD, HTN T- 37.2 BP- 129/63 HR- 85 RR- 21 O2Sat- 95 1L O2 now, dips to high 80s when off on 2L at home when sleeping 18 RAC given 3 duo neb tx, doxycycline, solumedrol Last BM 12/07/23 hasn't eaten, cup of water SBA, no ambulatory devices lungs- wheezes denies pain no skin issues A&O 's name is taisah Report received from: Stacie [id number]
[2023-12-07] MEDS: Mometasone 220 MCG 14 DOSE INHALER 2 PUFF IH (20:19)
[2023-12-07 21:43] LABS: Troponin I < 50 ng/L (< or =60)
[2023-12-07] MEDS: Benzonatate 100 MG CAP PO (21:58)
[2023-12-07] MEDS: hydrALAZINE 25 MG TAB 50 MG PO (21:58)
[2023-12-07] MEDS: guaiFENesin 600 MG TABCR PO (21:58)
[2023-12-07] MEDS: Lisinopril 20 MG TAB PO (22:00)
[2023-12-07] MEDS: Rosuvastatin 5 MG TAB PO (22:00)
[2023-12-07] MEDS: dilTIAZem CD 120 MG CAPCR PO (22:02)
[2023-12-07] MEDS: Acetaminophen 500 MG TAB 1000 MG PO (23:59)
[2023-12-08] VITALS (11 sets, daily range): BP systolic 110–150; BP diastolic 49–115; PULSE 72–100; RESP 5–30; TEMP 35.4–36.9; O2SAT 91–98
[2023-12-08] MEDS: DOXYCYCLINE 100 MG in Normal Saline 100 ML IVPB ×2 (06:36→17:38)
[2023-12-08] MEDS: Albuterol/Ipratropium 3 ML UPD VIAL UPD ×2 (06:52→11:21)
[2023-12-08 06:55] LABS: Abs Immature Grans 0.13 10^3/uL (0.0-0.06); Absolute Basophil Count 0.03 10^3/uL (0.0-0.2); Absolute Lymphocyte Count 1.33 10^3/uL (1.2-3.4); Absolute Monocyte Count 0.38 10^3/uL (0.1-0.8); Basophils % 0.2 %; HCT 34.6 % (36.0-46.0); HGB 11.4 g/dL (11.2-15.7); Immature Grans % 0.9 %; Lymphocytes % 9.4 %; MCH 29.8 pg (27.0-33.0); MCHC 32.9 % (32.0-36.0); MCV 90 fL (80-95); MPV 10.4 fL (8.0-11.0); Monocytes % 2.7 %; Neutrophils % 86.8 %; Platelet Count 420 10^3/uL (130-400); RBC 3.83 10^6/uL (3.93-5.22); RDW 12.9 % (11.7-14.6); RDW-SD 42.9 fL; WBC 14.11 10^3/uL (4.4-10.8)
[2023-12-08 06:57] LABS: Absolute Neutrophil Count 12.25 10^3/uL (1.2-6.7)
[2023-12-08 07:12] LABS: Anion Gap 8.5 mmol/L (3-11); BUN 15 mg/dL (7-18); CO2 28.5 mmol/L (21.0-32.0); CREATININE 0.8 mg/dL (0.55-1.02); Calcium 9.3 mg/dL (8.5-10.1); Chloride 102 mmol/L (98-107); Estimated GFR 77.75 (mL/min/1.73m2); Glucose 149 mg/dL (74-106); Magnesium 2.1 mg/dL (1.8-2.4); Potassium 3.8 mmol/L (3.5-5.1); Sodium 139 mmol/L (136-145)
[2023-12-08] MEDS: Normal Saline Flush 10 ML SYR IVP ×3 (07:55→21:07)
[2023-12-08] MEDS: Pantoprazole 40 MG VIAL IVP (07:55)
[2023-12-08] MEDS: Loratidine 10 MG TAB PO (07:56)
[2023-12-08] MEDS: Acetaminophen 500 MG TAB 1000 MG PO (07:56)
[2023-12-08] MEDS: FLUoxetine 20 MG CAP PO (07:56)
[2023-12-08] MEDS: Lactobacillus Acidophilus CAP 1 CAP PO (07:57)
[2023-12-08] MEDS: Lisinopril 20 MG TAB PO ×2 (07:57→21:06)
[2023-12-08] MEDS: dilTIAZem CD 120 MG CAPCR PO (07:57)
[2023-12-08] MEDS: predniSONE 20 MG TAB 40 MG PO (07:57)
[2023-12-08] MEDS: hydrALAZINE 25 MG TAB 50 MG PO ×2 (07:58→21:06)
[2023-12-08] MEDS: Benzonatate 100 MG CAP PO ×3 (07:58→21:05)
[2023-12-08] MEDS: guaiFENesin 600 MG TABCR PO ×3 (07:58→21:06)
[2023-12-08] MEDS: Mometasone 220 MCG 14 DOSE INHALER 2 PUFF IH (08:36)
--- NOTE | 2023-12-08 09:00 | RT.EKG_ITS ---
APPROVED REPORT Exam: Resting ECG Reason for Exam: chest pain Patient Location: I HR:94 bpm ECG Measurements Heart Rate 94 AXIS IL 170 P 72 QRSd 83 QRS 25 QT 364 T 73 QTc 456 Conclusion Sinus rhythm...normal P axis, V-rate 50- 99 Probable left atrial enlargement...P >50mS, <-0.10mV V1 Late transition
--- NOTE | 2023-12-08 09:06 | PGE_ITS ---
Date of Service Date of service: 12/08/23 Time of Service: 09:06 Assessment and Plan Assessment and plan (1) COPD exacerbation: Status: Acute Assessment and plan: Continue oral prednisone Continue protonix Magic mouth wash PRN Continue Doxycycline Increased mucinex to TID Continue Tessalon Scheduled Xopenex PRN Duonebs IS Acapella Home spiriva (2) Chest pain: Status: Acute Assessment and plan: worst with inspiration and deep breathing, had similar symptoms on arrival exacerbated with coughing; epigastric tenderness on exam in addition to history of GERD on PPI at home Most likely from pleuritic origin VS epigastric EKG and troponin #1 and #2 negative yesterday Stat EKG : negative for ischemia Stat troponin negative (3) Hypertension: Assessment and plan: Continue home regimen with cardizem CD, lisinopril and hydralazine (4) Hyperlipidemia: Assessment and plan: Continue regimen Discussed with Dr. Krueger Subjective Subjective Patient reports: still having pain (chest pain with inspiration ), tolerating liquids well, tolerating a regular diet, voiding w/o difficulty, shortness of breath, afebrile and other (c/o of feeling shaky and jittery); denies feels better, diarrhea, nausea or vomiting Exam Narrative Exam Narrative: HENMT: Facial structures with normal appearance Eyes: Well aligned, intact ROM Neck: Normal ROM, no meningeal signs Neuro:alert and oriented X4 Resp: 5-6-word sentences, labored breathing, diminished breath sounds bilaterally w exp. wheezing bilaterally R>L, now on RA , sat was 96% on 1l/min Cardio: regular rhythm, S1, S2, no murmur, capillary refill<3 sec. : no CVA tenderness Psych: RASS 0, congruent mood and normal to anxious affect. Objective Last Vital Signs Temp 36.5 C 12/08/23 07:35 Pulse 100 H 12/08/23 07:35 Resp 30 H 12/08/23 07:35 BP 150/115 H 12/08/23 07:35 Pulse Ox 96 12/08/23 07:35 Laboratory Results - last 24 hr 12/07/23 12/07/23 12/07/23 10:51 11:01 18:00 WBC 19.48 H RBC 4.15 Hgb 12.2 Hct 38.1 MCV 92 MCH 29.4 MCHC 32.0 RDW 13.2 Plt Count 473 H MPV 9.8 Immature Gran % 0.7 Neutrophils % 83.5 Lymphocytes % 6.6 Monocytes % 8.6 Eosinophils % 0.2 Basophils % 0.4 Nucleated RBC % 0.0 Absolute Neutrophils 16.27 H Absolute Lymphocytes 1.29 Absolute Monocytes 1.68 H Absolute Eosinophils 0.04 Absolute Basophils 0.08 RBC Morphology Normal Sodium 138 Potassium 3.5 Chloride 99 Carbon Dioxide 29.4 Anion Gap 9.6 BUN 11 Creatinine 0.9 Est GFR (CKD-EPI 2020) 67.50 Glucose 164 H Calcium 8.9 Magnesium Total Bilirubin 0.54 AST 19 ALT 34 Alkaline Phosphatase 121 H Troponin I 57 Cancelled < 50 NT-Pro-B Natriuret Pep 383 H Total Protein 8.1 Albumin 3.6 COVID-19 Source Nasopharynx SARS-CoV-2 (PCR) Negative Influenza Type A (PCR) Negative Influenza Type B (PCR) Negative RSV (PCR) Negative 12/07/23 12/08/23 21:21 06:02 WBC 14.11 H RBC 3.83 L Hgb 11.4 Hct 34.6 L MCV 90 MCH 29.8 MCHC 32.9 RDW 12.9 Plt Count 420 H MPV 10.4 Immature Gran % 0.9 Neutrophils % 86.8 Lymphocytes % 9.4 Monocytes % 2.7 Eosinophils % 0.0 Basophils % 0.2 Nucleated RBC % 0.0 Absolute Neutrophils 12.25 H Absolute Lymphocytes 1.33 Absolute Monocytes 0.38 Absolute Eosinophils 0.00 Absolute Basophils 0.03 RBC Morphology Sodium 139 Potassium 3.8 Chloride 102 Carbon Dioxide 28.5 Anion Gap 8.5 BUN 15 Creatinine 0.8 Est GFR (CKD-EPI 2020) 77.75 Glucose 149 H Calcium 9.3 Magnesium 2.1 Total Bilirubin AST ALT Alkaline Phosphatase Troponin I < 50 NT-Pro-B Natriuret Pep Total Protein Albumin COVID-19 Source SARS-CoV-2 (PCR) Influenza Type A (PCR) Influenza Type B (PCR) RSV (PCR) Time Spent with Patient Time Spent with Patient: >50 minutes Time was spent: preparing to see the patient(eg.review tests), obtaining and/or reviewing separately otained hiistory, ordering medications,tests, procedures, referring, communicating with other health home health care respiratory therapist, indepentently interpreting results, counseling the patient and care coordination
[2023-12-08 10:25] LABS: Troponin I < 50 ng/L (< or =60)
[2023-12-08] MEDS: MORPHine 2 MG/ML SYR 1 MG IVP (10:58)
--- NOTE | 2023-12-08 11:20 | PHA.REVIEW2 ---
Pharmacy Admission Review Admission Clinical Review Admission Pharmacy Review: (Updated 12/08/23 @ 09:08 by Kenyetta Guthrie APRN) Chest pain (Acute) COPD exacerbation (Acute) No Known Allergies Allergy (Verified 12/07/23 10:58) Resuscitation Status Full Code Height 4 ft 8 in Weight 66 kg Pharmacy Admission Review Renal Dosing Renal Dosing: BUN 15 mg/dL (7-18) 12/08/23 06:02 Creatinine 0.8 mg/dL (0.55-1.02) 12/08/23 06:02 Medications needing adjustments: Reviewed (CrCl 51.85 mL/min) List of meds needing interventions: Current medications are okay Anticoagulation Anticoagulation: Hgb 11.4 g/dL (11.2-15.7) 12/08/23 06:02 Hct 34.6 % (36.0-46.0) L 12/08/23 06:02 Plt Count 420 10^3/uL (130-400) H 12/08/23 06:02 Creatinine 0.8 mg/dL (0.55-1.02) 12/08/23 06:02 DVT Prophylaxis: Reviewed Medications: Enoxaparin (40mg daily) Relevant Labs Relevant Labs: Sodium 139 mmol/L (136-145) 12/08/23 06:02 Potassium 3.8 mmol/L (3.5-5.1) 12/08/23 06:02 Chloride 102 mmol/L (98-107) 12/08/23 06:02 Magnesium 2.1 mg/dL (1.8-2.4) 12/08/23 06:02 Electrolytes, C-Reactive P, ESR: Reviewed (glucose 149) Cardiac Review Cardiac Review: Troponin I < 50 ng/L (< or =60) 12/08/23 10:00 NT-Pro-B Natriuret Pep 383 pg/mL (<300) H 12/07/23 10:51 Blood Pressure 150/115 0735 Blood Pressure 123/64 2338 BP, HR, EF%: Reviewed (BP 150/115 and HR 100, RR 30, troponin negative x3) QTc Review QTc: Reviewed (443 from 12/07/23) IV to PO Switch IV Medications: Reviewed (doxycycline and pantoprazole) Home Meds Home Med List reviewed: Intervened Relevent Home Meds Not ordered & why?: ascorbic acid, multivitamin, omeprazole (has order for pantoprazole) Flovent --> substituted with Asmanex per hospital policy Current Meds Current Medication Order Review: Intervened Comments: Patient takes diltiazem 120mg ER q12h at home, order was put through as diltiazem 120mg CD which is a 24 hour formulation. Reached out to provider to ask if they would like 60mg QID of IR or 240mg daily of the CD formulation. Provider asked that the order be changed to 60mg QID. Retimed for 1400, patient had already received dose this morning of the 120mg CD. Pharmacy Antibiotic Review Relevant Labs: WBC 14.11 10^3/uL (4.4-10.8) H 12/07/ 06:02 Temperature 36.5 C Temperature 36.3 C Pharmacy Antibiotic Activity: C/S review and Reviewed, no change Comments: Patient is on doxycycline day 1 for COPD exacerbation. Blood cultures pending. WBC decreased from 19.48 to 14.11.
[2023-12-08] MEDS: Docusate Sodium 100 MG CAP PO ×2 (13:27→21:06)
[2023-12-08] MEDS: Tiotropium Bromide-Respimat 10 PUFF INH 2 PUFF IH (14:08)
[2023-12-08] MEDS: Levalbuterol 0.63 MG/3 ML UPD VIAL UPD ×2 (14:09→20:20)
[2023-12-08] MEDS: dilTIAZem 60 MG TAB PO ×2 (15:58→21:06)
--- NOTE | 2023-12-08 16:30 | CHAPLAIN ---
Dinah had two visitors with her when I stopped in. She told me that she's feeling better, but her breathing is still not easy. One of the visitors said that they have prayer warriors lined up from [place] and all over prayer for Dinah. I explained my role and offered support.
--- NOTE | 2023-12-08 17:32 | PDOC.CMIN ---
Date of service: 12/08/23 Time of Service: 17:32 Care Management Initial Assmt Initial Assessment Reason for Hospitalization: COPD Exacerbation Functional Status/Living Situation Patient Presentation: Pleasant, visitors present, up independently. 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 Shares that she primarily provides transport now, and Rony only drives when needed, which is hard as he drove truck for over 48 years. Dinah describes being independent at home, managing all ADLs. Her and Rony reside in a Group Home Community in [place] most of the year, and summer in [place] from August to March-though this [place] come [place] until November as Rony was ill. Rony is a [place] and well supported with [facility] services in [place]. Town of Residence: [place] Resides with: Spouse Significant Other/Family: Local (Family locally, many natural supports and service supports in [place]. ) Employment Status: Retired (shuttle bus driver) Instrumental Activities of Daily Living (ADLs): Independent Activities/Hobbies/SocialSupport: Playing poker, visiting relatives, activities at assisted community; couple remains active. Medications Medication Management: No Issues/Barriers identified ([facility] Home delivery service ) Advance Directives Advance Directives: Do you have an Advance Directive: N 11/07/21 09:39 AD On File at [facility]: N 11/07/21 09:39 Date Asked 12/07/23 12/07/23 10:49 AD Date Reviewed 12/07/23 12/07/23 17:38 COLST On File at [facility] COLST Date Scanned Code Status Resuscitation Status Full Code Portal Pt does not currently have a portal and education provided: Yes Insurance Coverage/Financial Issues Insurance: [employer] ACO Member: No Care Team Visit Care Team Role Provider Type Pauline Hyman MD Primary Care Provider [facility] STAFF PHYSICIAN Reynaldo Kolb, BELLA Emergency Provider NURSE PRACTITIONER Don Krueger MD Admit Provider [facility] STAFF PHYSICIAN Attending Provider Other: [facility]: Pauline Hyman Discharge Anticipated Barriers to Discharge: Medical Status Patient/Family Education Needs: Review discharge instructions, discuss Ask Me Three Transportation: Private vehicle Plan: Dinah will return home when ready per MD, no additional services anticipated at this time. She will follow up with outpatient providers and her plan of care as prescribed. CM following. PFSH All Active Problems (Updated 12/08/23 @ 09:08 by Kenyetta Guthrie APRN) Chest pain (Acute) COPD exacerbation (Acute) Candidiasis, esophageal (Acute) Bradycardia (Acute) Hx of colonic polyp (Acute) Screening for colon cancer (Acute) Medical History COPD (chronic obstructive pulmonary disease) Women's annual routine gynecological examination Urinary incontinence Vaginal pessary present Hypertension Hyperlipidemia Depression Stress incontinence in female longstanding Disorder of stomach pt unable to specify, states diarrhea. 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 uterine prolapse stage 2. rectocele stage2 Surgical History Colonoscopy - IV Sedation (~02/2023) 2009 Appendectomy 1964 Family History Mother Heart disease Hyperlipidemia Father Heart disease Hyperlipidemia Sister Hyperlipidemia Brother Diabetes Heart disease Hyperlipidemia Social History Smoking/Tobacco Use Status: Former Tobacco Use Quit Date: 06/08/97 Tobacco: How many years used: 45 Smoking risk assessment performed?: Yes Alcohol Intake: current Alcohol Intake frequency: a few times a week Alcohol type: wine Drug use: Never Substance use type: does not use Household members: spouse Housing: house current occupation: retired. She and her were long distance truck drivers What type of physical activity do you participate in: walking and additional Details: I try to go for walks. Do you feel safe at home: Yes Do you feel safe in your relationship?: Yes History History 3 Para 3 Hx # Term Pregnancies Multiple births Hx # Pregnancies Ectopic pregnancies AB induced Hx Number of Living Children 3 AB spontaneous SDOH(Care Management) Screening Will the Patient Participate in the Screening?: Yes Do you worry about having a steady place to live?: no Problems where you live: no known problems In the past 12 months, have you had to go without electric, gas, oil or water in your home?: no Have you or anyone in your house had to go without enough food to eat?: no Has lack of transportation kept you from medical appointments or from doing things needed for daily living?: no Has anyone in your support network made you feel unsafe for any reason?: no
[2023-12-08] MEDS: Enoxaparin 40 MG/0.4 ML SYR SC (17:42)
[2023-12-08] MEDS: Magic Mouthwash 119 ML BTL PO (17:43)
[2023-12-08] MEDS: Rosuvastatin 5 MG TAB PO (21:06)
[2023-12-09] VITALS (15 sets, daily range): BP systolic 126–151; BP diastolic 69–97; PULSE 72–84; RESP 5–20; TEMP 35.6–37; O2SAT 92–99
[2023-12-09] MEDS: Levalbuterol 0.63 MG/3 ML UPD VIAL UPD ×4 (02:03→20:20)
[2023-12-09] MEDS: DOXYCYCLINE 100 MG in Normal Saline 100 ML IVPB ×2 (06:12→18:15)
[2023-12-09 07:07] LABS: Abs Immature Grans 0.17 10^3/uL (0.0-0.06); Absolute Basophil Count 0.04 10^3/uL (0.0-0.2); Absolute Lymphocyte Count 2.63 10^3/uL (1.2-3.4); Absolute Monocyte Count 1.41 10^3/uL (0.1-0.8); Absolute Neutrophil Count 13.55 10^3/uL (1.2-6.7); Basophils % 0.2 %; HCT 33.1 % (36.0-46.0); HGB 11.1 g/dL (11.2-15.7); Lymphocytes % 14.8 %; MCH 29.8 pg (27.0-33.0); MCHC 33.5 % (32.0-36.0); MCV 89 fL (80-95); MPV 9.8 fL (8.0-11.0); Monocytes % 7.9 %; Neutrophils % 76.1 %; Platelet Count 459 10^3/uL (130-400); RBC 3.72 10^6/uL (3.93-5.22); RDW-SD 42.3 fL
[2023-12-09 07:26] LABS: BUN 20 mg/dL (7-18); CREATININE 0.8 mg/dL (0.55-1.02); Calcium 9.5 mg/dL (8.5-10.1); Chloride 105 mmol/L (98-107); Estimated GFR 77.75 (mL/min/1.73m2); Glucose 106 mg/dL (74-106); Potassium 3.7 mmol/L (3.5-5.1); Sodium 141 mmol/L (136-145)
[2023-12-09] MEDS: Normal Saline Flush 10 ML SYR IVP (08:30)
[2023-12-09] MEDS: MORPHine 2 MG/ML SYR 1 MG IVP (08:30)
[2023-12-09] MEDS: Loratidine 10 MG TAB PO (08:32)
[2023-12-09] MEDS: Docusate Sodium 100 MG CAP PO ×2 (08:32→22:18)
[2023-12-09] MEDS: hydrALAZINE 25 MG TAB 50 MG PO ×2 (08:32→22:19)
[2023-12-09] MEDS: dilTIAZem 60 MG TAB PO ×4 (08:32→22:15)
[2023-12-09] MEDS: FLUoxetine 20 MG CAP PO (08:32)
[2023-12-09] MEDS: Benzonatate 100 MG CAP PO ×3 (08:32→22:17)
[2023-12-09] MEDS: guaiFENesin 600 MG TABCR PO ×3 (08:36→22:17)
[2023-12-09] MEDS: Pantoprazole 40 MG VIAL IVP (08:36)
[2023-12-09] MEDS: Lactobacillus Acidophilus CAP 1 CAP PO (08:36)
[2023-12-09] MEDS: Lisinopril 20 MG TAB PO ×2 (08:36→22:18)
[2023-12-09] MEDS: predniSONE 20 MG TAB 40 MG PO (08:37)
[2023-12-09] MEDS: Tiotropium Bromide-Respimat 10 PUFF INH 2 PUFF IH (09:14)
--- NOTE | 2023-12-09 10:34 | W.PM.PROGNOT ---
Date of Service Date of service: 12/09/23 Time of Service: 10:35 Assessment and Plan Assessment and plan (1) COPD exacerbation: Status: Acute Assessment and plan: Continue oral prednisone Continue protonix Magic mouth wash PRN Continue Doxycycline Increased mucinex to TID Continue Tessalon Scheduled Xopenex PRN Duonebs IS Acapella Home spiriva (2) Chest pain: Status: Resolved Assessment and plan: worst with inspiration and deep breathing, had similar symptoms on arrival exacerbated with coughing; epigastric tenderness on exam in addition to history of GERD on PPI at home Most likely from pleuritic origin VS epigastric Troponins and EKG negative Now LLQ abd pain: scheduled APAP (3) Hypertension: Assessment and plan: On home regimen with cardizem CD, lisinopril and hydralazine (4) Hyperlipidemia: Assessment and plan: On home meds (5) Vaginal pessary present: Assessment and plan: OBGYN consult Present BARREL LINE OPERATOR d/t be removed today in went to and was told that a consult needed to be ordered to remove device Discussed with Dr. Krueger Subjective Subjective Patient reports: tolerating liquids well, tolerating a regular diet, voiding w/o difficulty, flatus, bowel movement, shortness of breath (Improving) and afebrile; denies diarrhea, nausea or vomiting Interval history since last seen: c/o LLQ abd pain Exam Narrative Exam Narrative: HENMT: Facial structures with normal appearance Eyes: Well aligned, intact ROM Neck: Normal ROM, no meningeal signs Neuro:alert and oriented X4 Resp: Decreased SOB, no further exp. wheezing, lungs are clear and diminished on RA Cardio: regular rhythm, S1, S2, no murmur, capillary refill<3 sec. GI: soft, non-acute, LLQ tenderness to palpation and reported on coughing, epigastric tenderness : no CVA tenderness Psych: RASS 0, congruent mood and normal to anxious affect. Objective Last Vital Signs Temp 36.9 C 12/09/23 07:25 Pulse 80 12/09/23 09:22 Resp 20 12/09/23 09:14 BP 138/97 H 12/09/23 07:25 Pulse Ox 94 12/09/23 09:14 Laboratory Results - last 24 hr 12/09/23 06:40 WBC 17.80 H RBC 3.72 L Hgb 11.1 L Hct 33.1 L MCV 89 MCH 29.8 MCHC 33.5 RDW 13.0 Plt Count 459 H MPV 9.8 Immature Gran % 1.0 Neutrophils % 76.1 Lymphocytes % 14.8 Monocytes % 7.9 Eosinophils % 0.0 Basophils % 0.2 Nucleated RBC % 0.0 Absolute Neutrophils 13.55 H Absolute Lymphocytes 2.63 Absolute Monocytes 1.41 H Absolute Eosinophils 0.00 Absolute Basophils 0.04 Sodium 141 Potassium 3.7 Chloride 105 Carbon Dioxide 29.0 Anion Gap 7.0 BUN 20 H Creatinine 0.8 Est GFR (CKD-EPI 2020) 77.75 Glucose 106 Calcium 9.5 Time Spent with Patient Time Spent with Patient: >50 minutes Time was spent: preparing to see the patient(eg.review tests), obtaining and/or reviewing separately otained hiistory, ordering medications,tests, procedures, referring, communicating with other health healthcare recruiter, indepentently interpreting results, counseling the patient, care coordination and other
[2023-12-09] MEDS: Acetaminophen 500 MG TAB 1000 MG PO ×2 (11:58→17:03)
--- NOTE | 2023-12-09 15:42 | CMPROGNOTE_ITS ---
Date of service: 12/09/23 Time of Service: 15:43 Care Management Progress Note Progress Note Text Progress Note Text: Dinah was lying in bed, remains pleasant in interaction. She did report talking made her cough and that she was experiencing shooting pains in her abdomen- Hospitalist aware. Rony was at her bedside enjoying squash and custard with many compliments to the Cafe. Dinah reported her pharmacy as [facility]-mail order-CM notified Hospitalist of possible need to release partial script of medication (if new scripts are ordered) on discharge (holiday weekend) and added pharmacy to chart. Discharge Potential Discharge Needs: Consult Consult Services Needed: Other ([facility]) and Imaging/labs Anticipated Barriers to Discharge: Medical Status Patient/Family Education Needs: Review discharge instructions, discuss Ask Me Three Transportation: Private vehicle Plan: Anticipate Dinah will return home with no additional services; awaiting further work-up related to new abdominal pain. Dinah will follow up with community providers and transport via private vehicle with her , Rony. SDOH(Care Management) Screening Will the Patient Participate in the Screening?: Yes Do you worry about having a steady place to live?: no Problems where you live: no known problems In the past 12 months, have you had to go without electric, gas, oil or water in your home?: no Have you or anyone in your house had to go without enough food to eat?: no Has lack of transportation kept you from medical appointments or from doing things needed for daily living?: no Has anyone in your support network made you feel unsafe for any reason?: no
--- NOTE | 2023-12-09 16:22 | IN_ITS ---
PT Notes Visit Reasons: COPD exacerbation Physical Therapy Inpatient Initial Evaluation Date: 12/09/2023 Referring Doctor: Kenyetta Guthrie NP PT Orders: PT CONSULT: Safety Consult for D/C) Precautions: Fall. Standard. Activity as tolerated. Patient Profile/Admitting Diagnosis: Dinah is a 73-year-old female admitted for management of COPD exacerbation, hypertension, and hyperlipidemia. 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 uterine prolapse stage 2. rectocele stage2 Surgical History Colonoscopy - IV Sedation (~02/2023) 2010 Appendectomy 1964 Social History/Home Situation: Lives with in a private home that is handicap-accessible. Equipment Owned/DME: None Subjective: Pleasant and cooperative. Abdominal pain started early this morning but seems to be letting up this PM Objective: General Observation: Resting on bed. Mental Status: Alert and oriented as to person, place, time, and purpose. Able to pay attention, focus, and respond appropriately. Pain: Abdominal pain when coughing that is of less intensity compared to earlier today Vital Signs: [place] monitored by [facility] ROM: Right Upper Extremity: Shoulder Flexion WFL. Shoulder abduction WFL. Elbow flexion WFL. Wrist flexion WFL. Functional opening and closing of hand WFL. Left Upper Extremity: Shoulder Flexion WFL. Shoulder abduction WFL. Elbow flexion WFL. Wrist flexion WFL. Functional opening and closing of hand WFL. Right Lower Extremity: Hip flexion WFL. Hip abduction WFL. Knee flexion WFL. Ankle dorsiflexion WFL. Ankle plantarflexion WFL. Left Lower Extremity: Hip flexion WFL. Hip abduction WFL. Knee flexion WFL. Ankle dorsiflexion WFL. Ankle plantarflexion WFL. Strength: Right Upper Extremity: Shoulder flexors 4/5. Shoulder abductors 4/5. Elbow flexors 4/5. Elbow extensors 4/5. Hog Scraper strong. Left Upper Extremity: Shoulder flexors 4/5. Shoulder abductors 4/5. Elbow flexors 4/5. Elbow extensors 4/5. Hog Scraper strong. Right Lower Extremity: Hip flexors 4/5. Hip abductors 4/5. Knee flexors 4/5. Knee extensors 4/5. Ankle dorsiflexors 4/5. Ankle plantarflexors 4/5. Left Lower Extremity: Hip flexors 4/5. Hip abductors 4/5. Knee flexors 4/5. Knee extensors 4/5. Ankle dorsiflexors 4/5. Ankle plantarflexors 4/5. Bed Mobility/Transfers: Rolling independent Supine to sit independent Sit to supine independent Sit to stand independent Stand to sit independent Bed to toliet seat independent Toilet seat to bed independent Bed to reclining chair independent Reclining chair to bed independent Gait: Instructed patient with level surface ambulation of 300 feet requiring supervision assist with single-point cane. Nadine decreased. Balance: Static Sitting: Normal Dynamic Sitting: Normal Static Standing: Normal Dynamic Standing: Good Special Tests: Mobility Limitations Standardized Measure [facility] 6 clicks Basic Mobility Inpatient Short Form: Raw Score: 23 [facility] Score: 11% deficit Informed Consent/Education: Patient was instructed in purpose of PT consult and plan of care. Agreeable to proceed with established PT POC to achieve personal goals. Assessment: Limitations highly affected by compromised rspiratory functiona from COPD excaerbation. Verbalized improved stability with use of single point cane during today's hallway ambulation. Will determine whether tomorrow patient is more able to negoatiate jass surfaces without and assistive device. Patient presents with clinical signs and symptoms consistent with current/admitting diagnoses that as demonstrated by the following impairment level findings: 1. Impaired activity tolerance 2. Shortness of breath Impairments are contributing to the following functional limitations: 1. Increased completion time for mobility ADL performance Patient is assessed [place] a 39948 low complexity based on the following: History: 73-year-old female with past medical history as indicated above Examination: Demonstrable impairment in strength, balance, and mobility level with underlying impairments and functional limitations as exhibited above as well as deficit score of 11% utilizing the [facility] Mobility Inpatient Short Form Presentation: Stable Decision Makin low complexity Goals: Goals X1 week 1. Independent gait on level surface with use of no AD for at least 300 feet without report of pain nor dyspnea 2. Independent stair negotiation while holding onto B rails for at least 6 steps without report of pain nor dyspnea Plan of Care/Treatment Plan: 1-2x/day, 7 days/week x 1 week. Plan of care has been reviewed with the ROUTING CLERK providing the service under Physical Therapy direction. Initiate Physical Therapy intervention for pain management as needed, strengthening, bed mobility, transfers, gait, stairs, balance training, and use of assistive device. -- Will need just one more session to determine readiness for independent hallway ambulation without report of abdominal pain in hallway and on stairs DISCHARGE RECOMMENDATIONS: X Home with no services. Home when medically cleared by hospitalist. [] Home with services [specify] [] Home with outpatient PT [] [] SNF for continued rehabilitation [] [] [facility] [] [] SNF versus LTC based on ability to participate and progress [] TREATMENT CODE/TIME: 27051 x 20 minutes for 1 unit, 79872 x 16 minutes for 1 unit (16:22?16:30 and 16:49?17:15). Thank you for the opportunity to participate in the care of this patient. Jennifer Krause PT, DPT, CLT [facility] [place], [place]
[2023-12-09] MEDS: Enoxaparin 40 MG/0.4 ML SYR SC (18:16)
--- NOTE | 2023-12-09 18:54 | W.GYNCONSULT ---
Date of service: 12/09/23 Time of Service: 18:54 Assessment and Plan Assessment and plan (1) Vaginal pessary present: Assessment and plan: Pessary removed without difficulty. Pt should call [facility] when she is discharged and arrange for a f/u visit and full railroad shop inspector exam in the next few weeks. History of Present Illness History of Present Illness Chief Complaint: pessary Narrative: I was asked to evaluate this jessica patient for a pessary that has been in place for about 5mo and they are unable to remove. The pt has had it since 2012 and used to be able to remove it on her own but it has become more difficult. Her tried to help her get it out but they have been unsuccessful recently. She had an appt at [facility] today to have it evaluated but she is admitted to the hospital for COPD. She says that it is painful and she occasionally has some pink spotting. She also c/o urine leakage. Review of Systems Gastrointestinal Gastrointestinal: Reports as per HPI Genitourinary Genitourinary: Reports as per HPI PFSH All Active Problems (Updated 12/09/23 @ 18:58 by Hannah Briones MD) Chest pain (Acute) COPD exacerbation (Acute) Candidiasis, esophageal (Acute) Bradycardia (Acute) Medical History (Updated 12/09/23 @ 18:58 by Hannah Briones MD) Hx of colonic polyp COPD (chronic obstructive pulmonary disease) Vaginal pessary present Removed when pt admitted 12/09/23 Hypertension Hyperlipidemia Depression Stress incontinence in female longstanding Disorder of stomach pt unable to specify, states diarrhea. 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 uterine prolapse stage 2. rectocele stage2 Surgical History Colonoscopy - IV Sedation (~02/2023) 2009 Appendectomy 1964 Family History Mother Heart disease Hyperlipidemia Father Heart disease Hyperlipidemia Sister Hyperlipidemia Brother Diabetes Heart disease Hyperlipidemia Social History Smoking/Tobacco Use Status: Former Tobacco Use Quit Date: 06/08/97 Tobacco: How many years used: 45 Smoking risk assessment performed?: Yes Alcohol Intake: current Alcohol Intake frequency: a few times a week Alcohol type: wine Drug use: Never Substance use type: does not use Household members: spouse Housing: house current occupation: retired. She and her were long distance truck drivers What type of physical activity do you participate in: walking and additional Details: I try to go for walks. Do you feel safe at home: Yes Do you feel safe in your relationship?: Yes History History 3 Para 3 Hx # Term Pregnancies Multiple births Hx # Pregnancies Ectopic pregnancies AB induced Hx Number of Living Children 3 AB spontaneous Exam Const General: cooperative, healthy appearing and no acute distress HENMT Head: normocephalic and atraumatic Ears: hearing grossly normal bilaterally Resp Effort & Inspection: normal respiratory effort and able to speak in complete sentences External Female Exam: normal external appearance and normal appearance of the urethra Other: Pessary identified and easily removed. No obvious bleeding. Neuro General: patient alert and patient awake Psych Appearance: grossly normal Mental Status: mental status grossly normal Speech and Movement: speech and movement normal Affect: normal affect Attitude: cooperative Thought Process: normal Thought Content: normal Results Last Vital Signs Temp 98.2 F 12/09/23 15:27 Pulse 77 12/09/23 15:27 Resp 15 12/09/23 15:27 BP 142/78 H 12/09/23 15:27 Pulse Ox 93 12/09/23 15:27 Labs 12/09/23 06:40 12/09/23 06:40 Labs: Laboratory Results - last 24 hr 12/09/23 06:40 WBC 17.80 H RBC 3.72 L Hgb 11.1 L Hct 33.1 L MCV 89 MCH 29.8 MCHC 33.5 RDW 13.0 Plt Count 459 H MPV 9.8 Immature Gran % 1.0 Neutrophils % 76.1 Lymphocytes % 14.8 Monocytes % 7.9 Eosinophils % 0.0 Basophils % 0.2 Nucleated RBC % 0.0 Absolute Neutrophils 13.55 H Absolute Lymphocytes 2.63 Absolute Monocytes 1.41 H Absolute Eosinophils 0.00 Absolute Basophils 0.04 Sodium 141 Potassium 3.7 Chloride 105 Carbon Dioxide 29.0 Anion Gap 7.0 BUN 20 H Creatinine 0.8 Est GFR (CKD-EPI 2020) 77.75 Glucose 106 Calcium 9.5
[2023-12-09] MEDS: Rosuvastatin 5 MG TAB PO (22:19)
[2023-12-10] VITALS (8 sets, daily range): BP systolic 126–172; BP diastolic 59–89; PULSE 69–81; RESP 8–20; TEMP 35.8–37.4; O2SAT 92–98
[2023-12-10] MEDS: Acetaminophen 500 MG TAB 1000 MG PO ×3 (00:05→16:10)
[2023-12-10] MEDS: Levalbuterol 0.63 MG/3 ML UPD VIAL UPD ×3 (01:50→14:21)
[2023-12-10] MEDS: DOXYCYCLINE 100 MG in Normal Saline 100 ML IVPB (05:33)
[2023-12-10 07:05] LABS: Abs Immature Grans 0.52 10^3/uL (0.0-0.06); Absolute Eosinophil Count 0.02 10^3/uL (0.0-0.7); Absolute Lymphocyte Count 3.55 10^3/uL (1.2-3.4); Absolute Neutrophil Count 9.79 10^3/uL (1.2-6.7); Basophils % 0.5 %; Eosinophils % 0.1 %; HCT 33.9 % (36.0-46.0); HGB 10.9 g/dL (11.2-15.7); Immature Grans % 3.4 %; Lymphocytes % 23.2 %; MCH 29.1 pg (27.0-33.0); MCHC 32.2 % (32.0-36.0); MCV 90 fL (80-95); MPV 9.9 fL (8.0-11.0); Monocytes % 8.9 %; Neutrophils % 63.9 %; Nucleated RBC 0.1 % (0.0-0.3); Platelet Count 458 10^3/uL (130-400); RBC 3.75 10^6/uL (3.93-5.22); RDW 12.9 % (11.7-14.6); RDW-SD 42.9 fL; WBC 15.32 10^3/uL (4.4-10.8)
[2023-12-10 07:08] LABS: Absolute Basophil Count 0.08 10^3/uL (0.0-0.2); Absolute Monocyte Count 1.36 10^3/uL (0.1-0.8)
[2023-12-10 07:32] LABS: Anion Gap 8.3 mmol/L (3-11); BUN 16 mg/dL (7-18); CO2 27.7 mmol/L (21.0-32.0); CREATININE 0.8 mg/dL (0.55-1.02); Calcium 9.1 mg/dL (8.5-10.1); Chloride 105 mmol/L (98-107); Estimated GFR 77.75 (mL/min/1.73m2); Glucose 94 mg/dL (74-106); Potassium 3.5 mmol/L (3.5-5.1); Sodium 141 mmol/L (136-145)
[2023-12-10 07:34] LABS: Diff Comment Diff Reviewed; RBC Morphology Normal
[2023-12-10] MEDS: Tiotropium Bromide-Respimat 10 PUFF INH 2 PUFF IH (07:45)
[2023-12-10] MEDS: Normal Saline Flush 10 ML SYR IVP ×2 (07:49)
[2023-12-10] MEDS: Pantoprazole 40 MG VIAL IVP (07:49)
[2023-12-10] MEDS: hydrALAZINE 25 MG TAB 50 MG PO (07:50)
[2023-12-10] MEDS: Lisinopril 20 MG TAB PO (07:51)
[2023-12-10] MEDS: predniSONE 20 MG TAB 40 MG PO (07:51)
[2023-12-10] MEDS: dilTIAZem 60 MG TAB PO ×3 (07:52→16:11)
[2023-12-10] MEDS: FLUoxetine 20 MG CAP PO (07:53)
[2023-12-10] MEDS: Benzonatate 100 MG CAP PO ×2 (07:53→13:53)
[2023-12-10] MEDS: guaiFENesin 600 MG TABCR PO ×2 (07:54→13:53)
[2023-12-10] MEDS: Loratidine 10 MG TAB PO (07:54)
[2023-12-10] MEDS: Docusate Sodium 100 MG CAP PO ×2 (07:54→13:53)
[2023-12-10] MEDS: Lactobacillus Acidophilus CAP 1 CAP PO (07:55)
--- NOTE | 2023-12-10 07:56 | DSE_ITS ---
Date of service: 12/10/23 Time of Service: 14:00 DS: Diagnosis Discharge Diagnosis (1) Vaginal pessary present: (2) COPD exacerbation: Status: Acute Discharge Plan Disposition Patient Disposition: Home Condition: Improving Discharge Details Reason For Visit: COPD exacerbation Admit Date/Time: 12/07/23 16:18 Admit Provider: Don Krueger Attending Provider: Don Krueger Primary Care Provider: Pauline Hyman V Hospital Course Hospital Course: This 73 years old female patient with a past medical history of hypertension, hyperlipidemia, chronic obstructive pulmonary disease on oxygen at home at night presented to the ED at [facility] on 12/07/2023 for evaluation of worsening shortness of breath with cough. On presentation the patient reported experiencing a mild cough for about a month which was getting better but then at the worsening of symptoms as well as increased malaise and fatigue. In the ED the patient denied fevers, chills but reported findings of oxygen saturation around 87 on room air with tachypnea and tachycardia were noted. EKG showed a sinus rhythm with heart rate around [address] elevation plan remarkable labs showed a WBC of 19.48, an ANC of 16.27, and a BNP of 383. The first troponin was at 57 with negative subsequent ones. Finding on chest x-ray describe a fat density mass in the lower right lung zone just above the hemidiaphragm which correlated with the findings from the CT completed in January 2023. Pleural effusion also described in the report. Cephalization was observed on this film without being able to localize mentioned small effusions. Treatment in the ED consisted of IV Solu- Medrol, DuoNebs with improvement but tachycardia and increased shortness of breath were noted during ambulation. The hospitalist was consulted and the patient was admitted to the medical surgical floor for exacerbation of COPD. During her stay, the patient received oral prednisone and doxycycline was initiated for increased production of yellowish sputum. Initial DuoNebs were changed to Xopenex as the patient reported shaking with the use of albuterol. The patient also received Mucinex and benzonatate. The patient chronic conditions were managed as per home medicine regimen. Complaints of chest pain resulted in negative findings on EKG and troponins. The patient reported having abdominal pain and was found to have epigastric tenderness which was relieved with the administration of Magic mouthwash and pantoprazole. The patient also reported taking ibuprofen at home as per good to pain management. Recommendation given to patient to use acetaminophen instead but not more than 3000 mg/day. The patient mentioned having had complaints of abdomen pain in the past for which colonoscopy was completed without any findings. The patient will be discharged home on a short course of prednisone, doxycycline, Mucinex. The patient will continue her Xopenex to drive at home as needed every 6 hours. The patient should follow-up with her primary care provider within 7 days of discharge. PT recommendation was for discharge home without services. The patient will have to follow-up with gynecology to follow- up with her vaginal pessary as an inpatient consult was completed during the stay d/t the fact the patient could not make it to her outpatient appointment. Patient mentioned having lost her director money and pulmonary referral will be initiated and Discussed with Dr. Smith [place] Meds and New Rx's Prescriptions: New prednisone 20 mg Tablet 40 mg PO DAILY Qty: 4 0RF Spiriva Respimat 2.5 mcg/actuation Mist 2 puff inhalation DAILY Qty: 4 0RF doxycycline hyclate 100 mg capsule 100 mg PO BID Qty: 4 0RF guaifenesin [Mucinex] 600 mg tablet extended release 12hr 600 mg PO BID Qty: 4 0RF levalbuterol HCl 1.25 mg/3 mL Solution For Nebulization 1.25 mg UPD Q6H PRNQty: 90 0RF Continued ascorbic acid (vitamin C) 1,000 mg tablet 1 g PO BID Patient Comments: with clark hips albuterol sulfate [Ventolin HFA] 90 mcg/actuation HFA aerosol inhaler 2 puff inhalation QID PRN CENTRUM SILVER TABLET 1 EACH tablet 2 ea PO DAILY omeprazole 20 mg capsule,delayed release(DR/EC) 20 mg PO DAILY fluoxetine [Prozac] 20 mg capsule 20 mg PO DAILY lisinopril 20 mg tablet 20 mg PO BID Claritin Liqui-Gel 10 MG capsule 10 mg PO DAILY rosuvastatin 5 mg tablet 5 mg PO QHS Patient Comments: TAKE 1 TABLET DAILY hydralazine 50 mg tablet 50 mg PO BID diltiazem HCl 120 mg capsule,extended release 12 hr 120 mg PO BID Discharge Instructions Stand Alone Forms: Nursing Discharge Form Referrals: Pauline Hyman MD [Primary Care Provider] - (F/u with PCP within 7 days of discharged ) Pauline Willis PA [[employer]] - (COPD admission, director money from [place] not in practice ) Maggie Panchal MD [ [facility] STAFF PHYSICIAN] - Activity:: Activity as Tolerated Equipment/Supplies:: cane Diet:: heart healthy Discharge Orders Discharge Orders: Discharge Order (Routine); Ordered 12/10/23 Ordered By: Kenyetta Guthrie DS: Summary Time Spent with Patient providing and/or coordinating discharge services: Greater than 30 minutes Status at Discharge Functional status at discharge: uses cane/walker Overall status at discharge: patient is progressing back to baseline Mental Status: mental status grossly normal Speech and Movement: speech and movement normal Mood: congruent mood Affect: normal affect Quality:SDOH Health Related Social Needs: No Data to Display Exam Narrative Exam Narrative: HENMT: Facial structures with normal appearance Eyes: Well aligned, intact ROM Neck: Normal ROM, no meningeal signs Neuro:alert and oriented X4 Resp: lungs are clear with diminished bases on RA Cardio: regular rhythm, S1, S2, no murmur GI: soft, non-acute, LLQ tenderness reported on coughing, : no CVA tenderness Psych: RASS 0, congruent mood and normal to anxious affect. Psych Mental Status: mental status grossly normal Speech and Movement: speech and movement normal Mood: congruent mood Affect: normal affect DS: Data Vitals/I&O Vitals and I&O: Vital Signs Temperature 36.7 C 12/10/23 06:42 Temperature Source Temporal Artery Scan 12/10/23 06:42 Pulse 75 12/10/23 07:45 Pulse Rhythm Regular 12/10/23 03:03 Pulse 87 12/07/23 17:16 Respiratory Rate 18 12/10/23 06:42 Respiratory Effort Short of Breath 12/10/23 03:03 Respiratory Depth Shallow 12/10/23 03:03 Respiratory Pattern Normal 12/10/23 03:03 Blood Pressure 172/89 H 12/10/23 06:42 Blood Pressure Mean 69 12/07/23 17:16 Blood Pressure Position Sitting 12/07/23 10:47 Pulse Oximetry 93 12/10/23 07:45 Oxygen Delivery Method Room Air 12/10/23 07:45 Oxygen Flow Rate 0 12/10/23 07:45 Pain Level 0 12/10/23 02:53 Comment Will inform RN of BP and will recheck 12/10/23 06:42 Intake & Output 12/09/23 12/09/23 12/10/23 11:59 23:59 11:59 Intake Total 100 / 400 300 / 400 400 / 400 Output Total 1000 / 1000 Balance 100 / 400 300 / 400 -600 / -600 Intake: IV 100 / 100 100 / 100 Oral 300 / 300 300 / 300 Output: Urine 1000 / 1000 Other: Urine Color Yellow Urine Appearance Clear Comment patient voided in toilet independently pt x1 unknown void at toilet pt voided in toilet insert Stool Size Small Stool Characteristics Soft Voiding Methods Toilet Toilet Data Completed and Pending Labs on day of discharge: Labs from last 24 hours 12/10/23 06:24 WBC 15.32 H RBC 3.75 L Hgb 10.9 L Hct 33.9 L MCV 90 MCH 29.1 MCHC 32.2 RDW 12.9 Plt Count 458 H MPV 9.9 Immature Gran % 3.4 Neutrophils % 63.9 Lymphocytes % 23.2 Monocytes % 8.9 Eosinophils % 0.1 Basophils % 0.5 Nucleated RBC % 0.1 Absolute Neutrophils 9.79 H Absolute Lymphocytes 3.55 H Absolute Monocytes 1.36 H Absolute Eosinophils 0.02 Absolute Basophils 0.08 RBC Morphology Normal Sodium 141 Potassium 3.5 Chloride 105 Carbon Dioxide 27.7 Anion Gap 8.3 BUN 16 Creatinine 0.8 Est GFR (CKD-EPI 2020) 77.75 Glucose 94 Calcium 9.1 Preliminary micro results at discharge 12/07/23 11:55 Blood Culture - Preliminary Blood NO GROWTH 48 HOURS 12/07/23 12:05 Blood Culture - Preliminary Blood NO GROWTH 48 HOURS PFSH All Active Problems (Updated 12/10/23 @ 15:34 by Kenyetta Guthrie APRN) Chest pain (Acute) COPD exacerbation (Acute) Candidiasis, esophageal (Acute) Bradycardia (Acute) Medical History (Updated 12/10/23 @ 15:34 by Kenyetta Guthrie APRN) Hx of colonic polyp COPD (chronic obstructive pulmonary disease) Vaginal pessary present Removed when pt admitted 12/09/23 Hypertension Hyperlipidemia Depression Stress incontinence in female longstanding Disorder of stomach pt unable to specify, states diarrhea. 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 uterine prolapse stage 2. rectocele stage2 Surgical History Colonoscopy - IV Sedation (~02/2023) 2009 Appendectomy 1964 Family History Mother Heart disease Hyperlipidemia Father Heart disease Hyperlipidemia Sister Hyperlipidemia Brother Diabetes Heart disease Hyperlipidemia Social History Smoking/Tobacco Use Status: Former Tobacco Use Quit Date: 06/08/97 Tobacco: How many years used: 45 Smoking risk assessment performed?: Yes Alcohol Intake: current Alcohol Intake frequency: a few times a week Alcohol type: wine Drug use: Never Substance use type: does not use Household members: spouse Housing: house current occupation: retired. She and her were long distance truck drivers What type of physical activity do you participate in: walking and additional Details: I try to go for walks. Do you feel safe at home: Yes Do you feel safe in your relationship?: Yes History History 3 Para 3 Hx # Term Pregnancies Multiple births Hx # Pregnancies Ectopic pregnancies AB induced Hx Number of Living Children 3 AB spontaneous Time Spent with Patient Time Spent with Patient: >85 minutes Time was spent: preparing to see the patient(eg.review tests), obtaining and/or reviewing separately otained hiistory, ordering medications,tests, procedures, referring, communicating with other health healthcare management, indepentently interpreting results, counseling the patient and care coordination
--- NOTE | 2023-12-10 10:35 | PT.INTREAT ---
PT Notes Visit Reasons: COPD exacerbation Inpatient Physical Therapy Treatment Note [facility] Date: 12/10/23 PRECAUTIONS:Standard OBJECTIVE: Therapeutic Activities (55928t[1]): Direct one-on-one instruction in dynamic activities to improve functional performance. ? BED MOBILITY/TRANSFERS? Supine-sit: I? Sit-stand: I ? Stand-sit: I ? Provided skilled cues and instruction on performance and technique throughout. Gait Training (58090i[]): Direct one-on-one instruction and skilled instruction in: [] employing an assistive device [] modified weight-bearing status [] movement sequencing [] turning and movement with proper form [] Provided verbal cues for equipment management and technique [] Provided instruction in gait pattern [] Patient education regarding pacing and breathing techniques to maximize activity tolerance? GAIT? Assistive Device: SPC? Weight bearing: Full Assist: CGA? Distance:? One small loop from room. Pt did require one standing rest due to slight SOB. ? Provided skilled instruction in proper exercise performance Provided skilled manual cues to facilitate proper muscle recruitment and/or form: [] Neuromuscular Re-education (97193h[]): Activities that facilitate re-education of movement balance, posture, coordination, and proprioception or kinesthetic sense, requiring skilled tactile and verbal cues ? ASSESSMENT:? Pt was very independent and abril with transfers and ambulation. PLAN: Cont as per PT POC. TREATMENT CODE/TIME: 10:25-10:35 (10)
--- NOTE | 2023-12-10 11:18 | CHAPLAIN ---
Dinah was resting in bed when I visited. She said she's still having some breathing issues. Her , Rony, visited yesterday and while he was here had a spell something about his heart, Dinah thought, and went to the ED. The ED was busy last night, so Dinah said she wasn't able to get any updates. This morning her daughter let her know that Rony is at home, went home last night, and the tests didn't find anything troubling. Dinah said she's had some trouble sleeping, and especially last night, since she wasn't able to reach Rony.
== END 2023-12-10 16:22 | disposition home or self-care (01) ==
LOC: ER 16:09 → MS 17:38
PROVIDERS: Nurse Practitioner Acute Care; Admitting Provider Family Medicine; Emergency Provider Nurse Practitioner Family; PCP Family Medicine; Visit Provider Family Medicine
DX: J44.1 Chronic obstructive pulmonary disease with (acute) exacerbation (principal); I10 Essential (primary) hypertension; E78.5 Hyperlipidemia, unspecified; Z99.81 Dependence on supplemental oxygen; R05.9 Cough, unspecified; F32.A Depression, unspecified; N39.3 Stress incontinence (female) (male); N81.2 Incomplete uterovaginal prolapse; Z87.891 Personal history of nicotine dependence; B37.81 Candidal esophagitis; R10.32 Left lower quadrant pain; K21.9 Gastro-esophageal reflux disease without esophagitis; R00.0 Tachycardia, unspecified; R91.8 Other nonspecific abnormal finding of lung field; J90 Pleural effusion, not elsewhere classified; R07.89 Other chest pain
CPT/HCPCS: 00123; 36410; 36415; 80048; 80053; 87040; 87637; 93005; 94640; 96365; 96366; 96372; 96375; 96376; 97161; 97530; 99285; J1650; 71045; 83735; 83880; 84484; 85025; 93010; 94664; 94667; 94760; 99223; 99232; 99233; 99239; G0378; J2270; J2470; J2919; J3490; J7512; J7614; J7620

== ENCOUNTER → 2024-01-06 10:51 | Outpatient (BNVA) | payer MEDICARE, SELFPAY | PROVIDERS: PCP Family Medicine; Referring Provider Family Medicine; Visit Provider Internal Medicine Critical Care Medicine | DX: J44.9 Chronic obstructive pulmonary disease, unspecified (principal); J96.11 Chronic respiratory failure with hypoxia; R91.1 Solitary pulmonary nodule | CPT/HCPCS: 94664; 99215 ==

== ENCOUNTER 2024-01-12 03:19 | Outpatient (CLI) | payer MEDICARE, SELFPAY ==
[2024-01-12] MEDS: Levalbuterol HFA 15 GM INH 4 PUFF IH (14:26)
[2024-01-12] MEDS: Inhaler, Assist Device 1 EACH MC (14:27)
--- NOTE | 2024-01-12 15:22 | W.PFT ---
Date of service: 01/12/24 Time of Service: 13:30 Pulmonary Function Test Result Requesting Provider Chana Nelson Indications: COPD Impression Spirometry shows a severe increase in FEV1/FVC and FEV1 at 44%. Significant reversibility after bronchodilator going up to 54%. Lung volumes show a mild restriction with decreased total lung capacity by capacity. Mild decrease in diffusion. Flow volume curves suggest both a obstructive and restrictive ventilatory defect. Impression Mixed severe obstructive and moderate restrictive ventilatory defect with moderate decrease in diffusion Clinical Correlation therefore is recommended.
--- NOTE | 2024-01-13 14:50 | W.6MWT ---
Date of service: 01/12/24 Time of Service: 15:00 6 Minute Walk Test Note: Patient walked 275 meters and demonstrated no desaturations requiring O2.
--- NOTE | 2024-02-03 09:58 | W.6MWT ---
Date of service: 01/12/24 Time of Service: 09:58 6 Minute Walk Test Note: Patient is a patient walking 274 meters and demonstrated no desaturations requiring supplemental O2.
== END 2024-01-12 03:20 | disposition home or self-care (01) ==
PROVIDERS: PCP Family Medicine; Visit Provider Internal Medicine Critical Care Medicine
DX: J44.9 Chronic obstructive pulmonary disease, unspecified (principal)
CPT/HCPCS: 00123; 94060; 94618; 94726; 94729

== ENCOUNTER 2024-01-18 02:25 | Outpatient (CLI) | payer MEDICARE, SELFPAY ==
--- NOTE | 2024-01-18 08:27 | DI.CT_ITS ---
Exam(s) CT CHEST WO EXAM: CT CHEST WO CLINICAL HISTORY: lung nodules,r91.1. TECHNIQUE: Imaging protocol: Axial computed tomography images were obtained and coronal and sagittal reformatted images were created and reviewed. COMPARISON: CT CT ABDOMEN PELVIS W from 01/14/[address] CHEST WO from 01/14/2023 CR XR PORTABLE CHEST AP from 12/07/2023 FINDINGS: The examination is limited due to patient motion artifact. Tracheobronchial tree: Patent where visualized. No bronchiectasis is present. Pulmonary parenchyma: Mild centrilobular emphysematous changes are present. There is a stable periph eral 3 mm nodule in the left upper lobe (series 2, image 100). There is unchanged mild scarring in t he right upper lobe. Mediastinum and Yamila: No dominant adenopathy or fluid collection. The esophagus is unremarkable.There is a small hiatal hernia present. There is again seen a fat containing posterior right-sided diaphr agmatic hernia. Thyroid gland: Unremarkable. Pleura: No effusion or pneumothorax. Heart: The heart is not dilated. Coronary artery calcification is present. No pericardial effusion. Aorta: Thoracic aorta non-dilated. Atherosclerotic calcification is present. Upper abdomen: Stable renal cysts. No follow-up is recommended. Lymph nodes: Within normal limits. Soft tissues: Unremarkable. Bones:Within normal limits for the patient's age. IMPRESSION: 1. Stable 3 mm left upper lobe pulmonary nodule. No new pulmonary nodules. Follow-up examination in 12 months is recommended. 2. Mild centrilobular emphysema. 3. There is again seen a right-sided posterior diaphragmatic hernia containing fat. 4. Small hiatal hernia. RADIATION DOSE DELIVERED: Total DLP Total DLP DATA REPOSITORY: All CT scans at this facility are submitted to the National Radiology Data Registry (NRDR) Dose Index Registry (DIR) with the [employer] (ACR). RADIATION OPTIMIZATION: All CT scans at this facility use at least one of these dose optimization te chniques: automated exposure control; mA and/or kV adjustment per patient size (includes targeted exa ms where dose is matched to clinical indication); or iterative reconstruction.
== END 2024-01-18 02:45 ==
LOC: DI 02:25
PROVIDERS: PCP Family Medicine; Visit Provider Internal Medicine Critical Care Medicine
DX: R91.1 Solitary pulmonary nodule (principal); J43.2 Centrilobular emphysema; K44.9 Diaphragmatic hernia without obstruction or gangrene; M25.551 Pain in right hip; M16.11 Unilateral primary osteoarthritis, right hip; M16.12 Unilateral primary osteoarthritis, left hip
CPT/HCPCS: 71250

== ENCOUNTER 2024-01-18 14:17 | Outpatient (CLI) | payer MEDICARE, SELFPAY ==
--- NOTE | 2024-01-18 08:32 | DI.RAD_ITS ---
Exam(s) XR HIP RT COMPLETE AP PELVIS EXAM: XR HIP RT COMPLETE AP PELVIS CLINICAL HISTORY: Pain in rt hip, M25.551. TECHNIQUE: 2D digital imaging was performed of the right hip. Two images were obtained. AP pelvis a nd lateral right hip views were obtained. COMPARISON: No exams were available for comparison FINDINGS: BONES: No acute fracture is present. No bony destructive lesion is seen. JOINTS: No dislocation present. There is narrowing of the superior joint space of the right hip. The re is a prominent osteophyte at the lateral aspect of the right hip. This can be seen with BETH. The re there is also femoral head osteophyte.. In the left hip, there is joint space narrowing superiorl y. The sacroiliac joints appear well maintained with minimal degenerative changes. The symphysis pu bis is intact. SOFT TISSUE: Normal. IMPRESSION: Degenerative changes of the hips, right greater than left. Unremarkable radiographs of the pelvis. DATA REPOSITORY: RADIATION DOSE DELIVERED:
== END 2024-01-18 14:37 ==
LOC: DI 14:17
PROVIDERS: PCP Family Medicine; Visit Provider Family Medicine
DX: M25.551 Pain in right hip (principal); M16.11 Unilateral primary osteoarthritis, right hip; M16.12 Unilateral primary osteoarthritis, left hip; R91.1 Solitary pulmonary nodule; J43.2 Centrilobular emphysema; K44.9 Diaphragmatic hernia without obstruction or gangrene
CPT/HCPCS: 73502

== ENCOUNTER 2024-01-28 02:35 | Outpatient (CLI) | payer MEDICARE, SELFPAY ==
--- NOTE | 2024-01-28 | DI.MAMMO_ITS ---
Exam(s) MAMMO SCREENING EXAM: MAMMO SCREENING CLINICAL HISTORY: SCREENING, Z12.31 TECHNIQUE: Mammograms were interpreted according to the usual protocol including computer analysis w [employer] CAD system, tomosynthesis and C-view imaging. COMPARISON: No exams were available for comparison FINDINGS: The breasts are composed of scattered fibroglandular densities, Breast Density category B. No suspicious masses or suspicious microcalcifications are seen. No skin thickening or abnormal axillary lymph nodes are seen. There has been no significant change from prior exams. IMPRESSION: BI-RADS Category 1, Negative mammogram Yearly screening mammography is recommended. Breast Density - Category B, scattered fibroglandular densities. A negative radiographic report should not delay biopsy if a dominant or clinically suspicious mass is present. Up to ten percent of cancers are not identified on mammography. A negative report may reinforce clinical impression. Adenosis and dense breasts may obscure an underlying neoplasm. False positive reports average 6 to 10%. Patient will receive a letter notifying them of these results.
--- NOTE | 2024-01-28 | DI.DEXA_ITS ---
Exam(s) XR DEXA BONE DENSITY W/WO MALISSA EXAM: XR DEXA BONE DENSITY W/WO MALISSA CLINICAL HISTORY: POSTMENOPAUSAL STATE ASYMPTOMATIC Z78.0 TECHNIQUE: [employer] C densitometer analysis of left hip, lumbar spine and left forearm. Lat eral survey image of the thoracic and lumbar spine. COMPARISON: 2008 and 2011 FINDINGS: Lateral view of the thoracic and lumbar spine shows no evidence of compression fractures. Bone mineral density measurements of the lumbar spine correspond to a total T-score of -2.2, in the o steopenic range. This represents 9.9 percent decrease compared with 2011 and 14.4 percent decrease c ompared to 2009. Bone mineral density measurements of the left hip correspond to a total T-score of -1.9. This is no t significantly changed from the prior exams.. The femoral neck T-score is -2.3, in the osteopenic range.. Theleft forearm bone mineral density measurements correspond to a T-score of the distal 3rd of -3.8, in the osteoporotic range. This represents an 18.2 percent decrease compared with 2011. Forearm wa s not analyzed in 2008.. IMPRESSION: Osteopenia of the spine and hip. Osteoporosis of the forearm with significant decrease from 27/05.
== END 2024-01-28 02:55 ==
LOC: DI 02:35
PROVIDERS: PCP Family Medicine; Visit Provider Family Medicine
DX: Z78.0 Asymptomatic menopausal state (principal); Z12.31 Encounter for screening mammogram for malignant neoplasm of breast; Z13.820 Encounter for screening for osteoporosis
CPT/HCPCS: 77063; 77067; 77080

== ENCOUNTER → 2024-02-03 09:50 | Outpatient (BNVA) | payer MEDICARE, SELFPAY | PROVIDERS: PCP Family Medicine; Referring Provider Family Medicine; Visit Provider Internal Medicine Critical Care Medicine | DX: J44.9 Chronic obstructive pulmonary disease, unspecified (principal); J96.11 Chronic respiratory failure with hypoxia; R91.1 Solitary pulmonary nodule | CPT/HCPCS: 99214 ==

== ENCOUNTER 2024-03-01 18:49 | Outpatient (REF) | payer MEDICARE, SELFPAY ==
[2024-03-01 19:48] LABS: Anion Gap 6.5 mmol/L (3-11); BUN 12 mg/dL (7-18); CO2 29.5 mmol/L (21.0-32.0); CREATININE 0.9 mg/dL (0.55-1.02); Chloride 104 mmol/L (98-107); Glucose 98 mg/dL (74-106); Potassium 3.7 mmol/L (3.5-5.1); Sodium 140 mmol/L (136-145)
[2024-03-01 22:59] LABS: HCT 40.6 % (36.0-46.0); HGB 12.5 g/dL (11.2-15.7); MCHC 30.8 % (32.0-36.0); MCV 94 fL (80-95); MPV 10.8 fL (8.0-11.0); Platelet Count 440 10^3/uL (130-400); RBC 4.31 10^6/uL (3.93-5.22); RDW 14.2 % (11.7-14.6); RDW-SD 49.6 fL; WBC 10.17 10^3/uL (4.4-10.8)
== END 2024-03-01 18:50 | disposition home or self-care (01) ==
LOC: NCHCN 18:49
PROVIDERS: PCP Family Medicine; Visit Provider Family Medicine
DX: I10 Essential (primary) hypertension (principal)
CPT/HCPCS: 80048; 85027

== ENCOUNTER → 2024-03-02 14:04 | Outpatient (BNVA) | payer MEDICARE, SELFPAY | PROVIDERS: PCP Family Medicine; Referring Provider Family Medicine; Visit Provider Physician Assistant | DX: M16.11 Unilateral primary osteoarthritis, right hip (principal) | CPT/HCPCS: 20611; J1010 ==

== ENCOUNTER 2024-12-24 12:52 | Emergency (ER) | payer MEDICARE, SELFPAY ==
[2024-12-24] VITALS (10 sets, daily range): BP systolic 137–197; BP diastolic 59–77; PULSE 65–74; RESP 12–24; TEMP 36.1; O2SAT 90–95
--- NOTE | 2024-12-24 12:45 | RT.EKG_ITS ---
APPROVED REPORT Exam: Resting ECG Reason for Exam: Nausea/Vomiting Patient Location: E HR:68 bpm ECG Measurements Heart Rate 68 AXIS ME 165 P 68 QRSd 71 QRS 25 QT 417 T 68 QTc 443 Conclusion Sinus rhythm, rate 68 No interval abnormalities No STEMI No significant changes from priors
--- NOTE | 2024-12-24 13:00 | DI.CT_ITS ---
Exam(s) CT ABDOMEN PELVIS W EXAM: CT ABDOMEN PELVIS W CLINICAL HISTORY: nausea, vomiting, diarrhea, abd pain TECHNIQUE: Imaging Protocol: Axial computed tomography images with coronal and sagittal reformatted images were created and reviewed. CONTRAST MATERIAL: Intravenous: Omnipaque 350 Contrast volume:75 mL Oral: No COMPARISON: CT CT ABDOMEN PELVIS W from 01/14/2023 CT,NM,TMT NM MPI REST STRESS GRP from 01/26/2023 FINDINGS: ABDOMEN: Lung Bases: There is a small hiatal hernia. There is a posterior diaphragmatic hernia again seen on the right. 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 Coronary artery calcifications are present. Liver: There is decreased attenuation of the liver consistent with fatty infiltration. The liver is enlarged. No measurable mass. Portal, Superior Mesenteric, and Splenic Veins: Unremarkable. Gallbladder and Biliary Tract: No radiodense calculus or dilation. Pancreas: Normal density, no abnormal calcifications or inflammatory process. Spleen: There again seen several hypodensities in the spleen. These may represent small cysts or hemangiomas. Adrenals: No masses seen. Kidneys: Normal size, contour and axis. No radiodense stones or obstructive uropathy. There are bilateral simple renal cysts. No follow-up is recommended. No suspicious renal masses are seen. Abdominal Aorta: Abdominal portion non-dilated. Atherosclerotic calcification is present. Bowel: There is diverticulosis of the colon but no evidence of acute diverticulitis. There is no evidence of bowel wall thickening or obstruction. There is no evidence of appendicitis. Peritoneal Cavity: No ascites, collection or mesenteric inflammatory response. No free air. Lymph Nodes: Within normal limits. Bones: Within normal limits for the patient's age. Soft Tissues: There is a small fat containing umbilical hernia. PELVIS: Bladder: Symmetric distention, no gross wall thickening. Reproductive Organs: Unremarkable as visualized. Lymph Nodes: Within normal limits. Bones: Within normal limits for the patient's age. IMPRESSION: 1. No acute abdominal or pelvic process. 2. There is colonic diverticulosis but no evidence of acute diverticulitis. 3. There is again seen a posterior right-sided diaphragmatic hernia. 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 4. Hepatomegaly and hepatic steatosis. 5. The preliminary [facility] report was reviewed. RADIATION DOSE DELIVERED: 401.5mGy.cm Total DLP DATA REPOSITORY: All CT scans at this facility are submitted to the National Radiology Data Registry (NRDR) Dose Index Registry (DIR) with the [employer] (ACR). RADIATION OPTIMIZATION: All CT scans at this facility use at least one of these dose optimization techniques: automated exposure control; mA and/or kV adjustment per patient size (includes targeted exams where dose is matched to clinical indication); or iterative reconstruction.
--- NOTE | 2024-12-24 13:13 | W.ED.GENAD ---
Discharge Plan Disposition Patient Disposition: Home Condition: Stable Discharge Details Clinical Impression: Nausea vomiting and diarrhea Primary Care Provider: Pauline Hyman V ED Provider: Ria Galvan Home Meds and New Rx's Prescriptions: New Probiotic 3 billion cell capsule 3,000 mmu cells PO DAILY Qty: 30 0RF Rx Instructions: administer with a meal No Action ascorbic acid (vitamin C) 1,000 mg tablet 1 g PO BID Patient Comments: with clark hips albuterol sulfate [Ventolin HFA] 90 mcg/actuation HFA aerosol inhaler 2 puff inhalation QID PRN fluticasone propionate [Flonase Allergy Relief] 50 mcg/actuation spray,suspension 1 spray intranasal DAILY Rx Instructions: administer into each nostril CENTRUM SILVER TABLET 1 EACH tablet 2 ea PO DAILY omeprazole 20 mg capsule,delayed release(DR/EC) 20 mg PO DAILY Patient Comments: 12/23/23- pt reports taking BID fluoxetine [Prozac] 20 mg capsule 20 mg PO DAILY albuterol sulfate 2.5 mg /3 mL (0.083 %) solution for nebulization 2.5 mg inhalation .Q4-6h nrlerkhq-rwd-qbhg-FA-vit K-lut [Centrum Silver Women] 1 tab PO DAILY losartan 50 mg tablet 50 mg PO BID Breztri Aerosphere 160-9-4.8 mcg/actuation HFA aerosol inhaler See Rx Instructions .ROUTE .COMPLEX Qty: 3 12RF Dose Instruction: INHALE 2 PUFFS TWICE DAILY Rx Instructions: INHALE 2 PUFFS TWICE DAILY Claritin Liqui-Gel 10 MG capsule 10 mg PO DAILY hydralazine 50 mg tablet 50 mg PO BID diltiazem HCl 120 mg capsule,extended release 12 hr 120 mg PO BID levalbuterol HCl 1.25 mg/3 mL Solution For Nebulization 1.25 mg UPD Q6H PRNQty: 90 0RF Discharge Instructions Instructions: Diarrhea, Adult ED Additional Instructions: You were seen in the emergency department today for evaluation of nausea with vomiting and diarrhea as well as abdominal and back pain. In our department had a full physical examination performed, had reassuring laboratory studies and a negative urinalysis. CT scan of your abdomen that did not show any abnormalities which might explain your symptoms. You received medications for management of your pain and nausea and were able to drink some water successfully. I am most concerned that you are experiencing diarrhea after taking antibiotics, and recommend that you start a probiotic daily. This can be the pill that I have sent to your kidney pharmacy in [facility], but could also be accomplished by eating yogurt, drinking kombucha, or any other food item that contains live active cultures. Please maintain good hydration as you are losing quite a bit of fluids through your stool. You should eat a bland diet, many people prefer to do bananas, rice, apples, and toast as they are very gentle in the GI tract. If you are able to bring a stool sample to our lab, we will test you for C. difficile, and infection that can occur after antibiotic use. If this is found, you will be contacted to discuss treatments. Please follow-up with your primary care provider in the next few days to discuss this visit and any symptoms that change, worsen, or persist. Thank you for allowing us to be part of your care. HPI General Mode of arrival: ambulatory. Date/Time Provider Initiated Documentation: 12/24/24 12:55. Limitations to Documentation: no limitations. Information obtained by: patient, family and old records reviewed. HPI Narrative: This is a 74-year-old female patient with a past medical history significant for COPD, IBS, and sick sinus syndrome who was recently treated with antibiotics for pneumonia in the outpatient environment, presented for evaluation of 2 weeks of diarrhea with gradually worsening abdominal cramping and vomiting. The patient reports that she has had several episodes of liquidy stool, states that she has not noted any blood in her stool and nobody else in her home is sick with similar symptoms. Initially she thought that this was just due to the antibiotics, which she has since completed. A few days ago she began to develop nausea and had an episode of nonbloody vomiting. She is experiencing cramping in her abdomen located primarily on the left side. It seems to radiate up into her chest and into her back bilaterally. She has not tried any medicines at home for management of this discomfort. She has a history of appendectomy, states that she has not been able to tolerate any oral intake today. Related Data Home Medications ?Medication ?Instructions ?Recorded ?Confirmed Centrum Silver Tablet 2 ea PO DAILY 06/15/13 12/24/24 loratadine 10 mg capsule (Claritin 10 mg PO DAILY 12/26/13 12/24/24 Liqui-Gel) fluoxetine 20 mg capsule (Prozac) 20 mg PO DAILY 02/14/20 12/24/24 omeprazole 20 mg capsule,delayed 20 mg PO DAILY 02/14/20 12/24/24 release albuterol sulfate 90 mcg/actuation 2 puff inhalation QID PRN 10/19/20 12/24/24 aerosol inhaler (Ventolin HFA) ascorbic acid (vitamin C) 1,000 mg 1 g PO BID 10/19/20 12/24/24 tablet diltiazem HCl 120 mg 120 mg PO BID 12/07/23 12/24/24 capsule,extended release 12 hr hydralazine 50 mg tablet 50 mg PO BID 12/07/23 12/24/24 levalbuterol HCl 1.25 mg/3 mL 1.25 mg (3 mL) UPD Q6H PRN #90 mL 12/10/23 12/24/24 solution for nebulization albuterol sulfate 2.5 mg/3 mL 2.5 mg inhalation .Q4-6h 12/25/23 12/24/24 (0.083 %) solution for nebulization rguyllzx-pwn-psfm-FA-vit K-lut 1 tab PO DAILY 12/25/23 12/24/24 [Centrum Silver Women] fluticasone propionate 50 1 spray intranasal DAILY 01/06/24 12/24/24 mcg/actuation nasal spray,suspension (Flonase Allergy Relief) losartan 50 mg tablet 50 mg PO BID 02/10/24 12/24/24 budesonide 160 mcg-glycopyr 9 See Rx Instructions .Route 11/10/24 12/24/24 mcg-formot 4.8 mcg/actuation HFA .COMPLEX #3 ea inhaler (Breztri Aerosphere) lactobacillus combination no.4 3 3,000 mmu cells PO DAILY #30 caps 12/24/24 billion cell capsule (Probiotic) Previous Rx's ?Medication ?Instructions ?Recorded levalbuterol HCl 1.25 mg/3 mL 1.25 mg (3 mL) UPD Q6H PRN #90 mL 12/10/23 solution for nebulization budesonide 160 mcg-glycopyr 9 See Rx Instructions .Route 11/10/24 mcg-formot 4.8 mcg/actuation HFA .COMPLEX #3 ea inhaler (Breztri Aerosphere) lactobacillus combination no.4 3 3,000 mmu cells PO DAILY #30 caps 12/24/24 billion cell capsule (Probiotic) Allergies Allergy/AdvReac Type Severity Reaction Status Date / Time simvastatin AdvReac Unknown Diarrhea Verified 12/24/24 13:00 General Stated Complaint: Chest Pain SANTIAGO: 2 Exam Narrative Exam Narrative: Gen: Awake and alert, appears uncomfortable HEENT: Non-icteric sclera Neck: Supple Lungs: No apparent respiratory distress, normal respiratory effort. CV: Appears well perfused, heart with regular rate and rhythm, strong distal pulses. Chest wall is nontender to palpation Abdomen: Non-distended, soft, tender to palpation in the left upper and left lower quadrant without rigidity, rebound, or guarding. MSK: Moves 4 extremities without apparent limitation in ROM. No peripheral edema Skin: Visualized skin without rashes, cyanosis. Neuro: Normal Gait, no obvious focal deficits or facial asymmetry. Speaks in full, clear sentences. Psych: Appropriate for situation. Course Vital Signs Vital signs: Vital Signs Temperature 36.1 C L 12/24/24 12:53 Pulse 73 12/24/24 12:53 Respiratory Rate 20 12/24/24 12:53 Blood Pressure 146/77 H 12/24/24 12:53 Pulse Oximetry 92 12/24/24 12:53 Temperature 36.1 C L 12/24/24 12:53 Temperature Source Tympanic 12/24/24 12:53 Pulse 73 12/24/24 12:53 Respiratory Rate 20 12/24/24 12:53 Blood Pressure 146/77 H 12/24/24 12:53 Blood Pressure Position Sitting 12/24/24 12:53 Pulse Oximetry 92 12/24/24 12:53 Oxygen Delivery Method Room Air 12/24/24 12:53 Oxygen Flow Rate 0 12/24/24 12:53 Pain Level 8 12/24/24 12:53 Medical Decision Making This is a 74-year-old female patient presenting for evaluation of nausea with vomiting and diarrhea as well as abdominal pain radiating to the chest and back. Differential includes but is not limited to infectious diarrhea including C. difficile, consider gastroenteritis, diverticulitis, bowel obstruction, gastritis/PUD, pancreatitis, cholecystitis, hepatitis. The patient's history and examination is less concerning for mesenteric ischemia or aortic pathology, though it was considered as well. I considered ACS given the radiation of pain from her belly to her chest, as well as pericarditis, myocarditis, arrhythmia, heart failure. She has no ongoing shortness of breath or cough to suggest pneumonia, and is without hypoxia or tachypnea. Exam most consistent with chest wall pain or costochondritis. Certainly consider musculoskeletal strain especially given the recent vomiting. Considered urinary tract infection, pyelonephritis, nephrolithiasis. We obtained and I reviewed an EKG, which shows a sinus rhythm without evidence of ischemia, interval abnormality, or ectopy. There are no significant changes when compared to the most recent prior. Will obtain laboratory studies to include CBC, CMP, magnesium, troponin, urinalysis, and C. difficile test. I will obtain a CT scan of the abdomen, and provide the patient with Tylenol and Zofran for initial management of symptoms. - I independently interpreted the laboratory studies, which show a leukocytosis to 20, anemia, or thrombocytopenia. The chemistry panel is without evidence of electrolyte abnormality, kidney dysfunction, or liver injury. I do note that her BUN to creatinine ratio is greater than 20-1, and provided her with a liter of IV fluids. Troponin was negative and without interval increase on 1 hour recheck. I did provide her with a dose of Toradol for ongoing lower back discomfort, with significant improvement in her pain after this intervention. Lipase is 23, urinalysis noninfectious. - I independently reviewed her CT scan as well as the radiology report. There are incidental note is made of small hepatic cysts, hepatic steatosis, and renal cysts. However, she has no acute pathology to explain her symptoms, and specifically has no evidence of diverticulitis, small bowel obstruction. She has some degenerative changes of the spine with no acute traumatic injuries to explain her back pain. Her visualized lung wagner are without significant consolidations concerning for pulmonary pathology. On reassessment, the patient reports that she was able to tolerate some oral intake without nausea. She has not been able to provide a stool sample, and I am most concerned for a gastroenteritis and potential C. difficile infection given her recent antibiotic use and her new leukocytosis. I do not identify any additional sources of infection and I am hesitant to empirically start this patient on antibiotics given that this diarrhea was potentially caused by her recent antibiotic use. Ultimately, the patient is hemodynamically appropriate, and has had a thorough workup. She is amenable to bringing in a stool sample for C. difficile testing, and we had an extensive discussion regarding return precautions. At this time, the patient has had a full medical evaluation and is safe for discharge to home. They are hemodynamically stable, ambulatory, and tolerating PO. They are understanding of the follow-up plan and return precautions. They left our facility without incident. Ria Galvan MD [facility] All Active Problems (Updated 12/24/24 @ 16:30 by Ria Galvan MD) Nausea vomiting and diarrhea (Acute) Osteoarthritis of right hip (Acute) POCUS injection: 03/02/2024 COPD (chronic obstructive pulmonary disease) (Chronic) Chronic hypoxemic respiratory failure (Acute) Lung nodule (Acute) Mediastinal lymphadenopathy (Acute) Prediabetes (Acute) Dyspnea (Acute) Flushing (Acute) Paresthesia (Acute) Tremor (Acute) Fatigue (Acute) Spasm (Acute) Pain in thoracic spine (Acute) Psoriasis (Chronic) Melena (Acute) IBS (irritable bowel syndrome) (Chronic) Cerebral infarction (Acute) Nicotine dependence (Acute) Sick sinus syndrome (Acute) Urinary frequency (Acute) COPD exacerbation (Acute) Candidiasis, esophageal (Acute) Bradycardia (Acute) Medical History (Updated 12/24/24 @ 16:30 by Ria Galvan MD) COVID-19 Hx of colonic polyp Hypertension Hyperlipidemia Depression Stress incontinence in female longstanding Disorder of stomach pt unable to specify, states diarrhea. 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 uterine prolapse stage 2. rectocele stage2 Surgical History (Updated 12/25/23 @ 09:12 by Dahlia Chavez) History of colonoscopy 12/26/13 with collagenous colitis and hyperplastic polyp Colonoscopy - IV Sedation (~02/2023) 2010 Appendectomy 1964 Family History (Updated 12/25/23 @ 09:08 by Dahlia Chavez) Mother Heart disease Hyperlipidemia Father , age 55 Heart disease congenital heart disease Hyperlipidemia Sister Hyperlipidemia Brother Diabetes Heart disease Hyperlipidemia Other Hypertension Stroke Social History (Updated 12/25/23 @ 09:09 by Dahlia Chavez) Smoking/Tobacco Use Status: Former Tobacco Use Quit Date: 06/08/97 Smoking risk assessment performed?: Yes Alcohol Intake: current Alcohol Intake frequency: a few times a week Alcohol type: wine Drug use: Never Substance use type: does not use Household members: spouse Housing: house current occupation: retired. She and her were long distance truck drivers What type of physical activity do you participate in: walking and additional Details: I try to go for walks. Do you feel safe at home: Yes Do you feel safe in your relationship?: Yes Additional Social history: Former smoker quit 16+yrs ago. Female Reproductive History Menstrual Age of Menarche: 12 control method: none Menopause type: natural History History 3 Para 3 Hx # Term Pregnancies Multiple births Hx # Pregnancies Ectopic pregnancies AB induced Hx Number of Living Children 3 AB spontaneous Past Pregnancies Del. Date GA/Weeks # Preg Succ Route Wgt Sex Labor Lgth Anesthesia Location Prov Compl 05/05/1966 Yes vaginal 2778.253 g Female [place], [place] 12/04/1967 Yes vaginal 2948.35 g Female [place], [place] 05/16/75 Yes vaginal 2438.059 g Male [place], [place] Delivery Date: [birth year]/05/1966 Last Updated by: SACHI Mercado Delivery Date: 12/04/1967 Last Updated by: SACHI Mercado Delivery Date: 05/16/75 Last Updated by: SACHI Mercado
[2024-12-24 13:37] LABS: Abs Immature Grans 0.38 10^3/uL (0.0-0.06); HCT 38.9 % (36.0-46.0); HGB 12.3 g/dL (11.2-15.7); Immature Grans % 1.9 %; MCH 28.6 pg (27.0-33.0); MCHC 31.6 % (32.0-36.0); MCV 91 fL (80-95); MPV 9.2 fL (8.0-11.0); Platelet Count 435 10^3/uL (130-400); RBC 4.30 10^6/uL (3.93-5.22); RDW 13.4 % (11.7-14.6); RDW-SD 44.5 fL; WBC 20.17 10^3/uL (4.4-10.8)
[2024-12-24] MEDS: ACETAMINOPHEN 1,000 MG/100 ML BAG 400 MG IVPB (13:39)
[2024-12-24] MEDS: Ondansetron 4 MG/2 ML VIAL IVP (13:39)
[2024-12-24 13:56] LABS: ALT 38 U/L (14-59); AST 20 U/L (15-37); Albumin 3.4 g/dL (3.4-5.0); Alkaline Phosphatase 93 U/L (46-116); Anion Gap 7.3 mmol/L (3-11); BUN 23 mg/dL (7-18); Bilirubin, Total 0.4 mg/dL (0.2-1.0); CO2 29.7 mmol/L (21.0-32.0); Calcium 8.9 mg/dL (8.5-10.1); Chloride 101 mmol/L (98-107); Estimated GFR 94.13 (mL/min/1.73m2); Glucose 121 mg/dL (74-106); Lipase 23 U/L (<78); Magnesium 2.2 mg/dL (1.8-2.4); Potassium 3.9 mmol/L (3.5-5.1); Sodium 138 mmol/L (136-145); Total Protein 7.1 g/dL (6.4-8.2); Troponin I 7 ng/L (<or=51)
[2024-12-24] MEDS: Normal Saline - Diluent 50 ML VIAL IJ (14:17)
[2024-12-24] MEDS: Omnipaque 350 MG/ML 100 ML BTL IJ (14:18)
[2024-12-24 14:44] LABS: Troponin I 7 ng/L (<or=51)
--- NOTE | 2024-12-24 15:17 | DI.VRAD_ITS ---
PROCEDURE INFORMATION: Exam: CT Abdomen And Pelvis With Contrast Exam date and time: 12/24/2024 2:20 PM Age: 74 years old Clinical indication: Other: Nausea, vomiting, diarrhea, abd pain TECHNIQUE: Imaging protocol: Computed tomography of the abdomen and pelvis with contrast. Contrast material: OMNIPQUE 350; Contrast volume: 75 ml; Contrast route: INTRAVENOUS (IV); COMPARISON: CT ABDOMEN PELVIS W 02/13/2023 01:34 FINDINGS: Heart: Cardiomegaly. Coronary arteries: Calcified coronary arteries. Diaphragm: Hiatal hernia. Hiatal hernia. Liver: Simple subcentimeter hepatic cysts. Decreased attenuation of the liver. No hepatic masses. Hepatomegaly. The liver measures 20 cm in length. Gallbladder and biliary ducts: Normal. No calcified stones. No ductal dilation. Pancreas: Normal. No ductal dilation. Spleen: Normal. No splenomegaly. Adrenal glands: Normal. No mass. Kidneys and ureters: Asymmetric elevation of the right hemidiaphragm posteriorly containing the right kidney. Simple bilateral renal cysts. Stomach and bowel: Diverticulosis without CT evidence of diverticulitis. Decompressed colon. Contracted stomach. Normal caliber small bowel. Appendix: No evidence of appendicitis. Intraperitoneal space: Unremarkable. No free air. No significant fluid collection. Vasculature: Atherosclerotic disease. Lymph nodes: Unremarkable. No enlarged lymph nodes. Urinary bladder: Unremarkable as visualized. Reproductive: Unremarkable as visualized. Bones/joints: Moderate degenerative changes of the right hip. Degenerative changes of the visualized spine. Soft tissues: Umbilical hernia with omental fat. IMPRESSION: 1. Contracted stomach, small bowel, and colon. 2. Hepatic steatosis. Hepatomegaly. 3. Additional findings as discussed above. Dictated and Authenticated by: Natty Jack MD. Orderin [facility]. Greg Rollins MD
[2024-12-24] MEDS: Lactated Ringers 1,000 ML 1000 ML IV (15:30)
[2024-12-24] MEDS: Ketorolac 15 MG/ML VIAL IVP (15:30)
[2024-12-24 16:10] LABS: Glucose Negative (Negative)
== END 2024-12-24 17:23 | disposition home or self-care (01) ==
PROVIDERS: Emergency Provider Emergency Medicine; PCP Family Medicine
DX: R11.2 Nausea with vomiting, unspecified (principal); R07.9 Chest pain, unspecified; R19.7 Diarrhea, unspecified; R10.32 Left lower quadrant pain; R10.12 Left upper quadrant pain
CPT/HCPCS: 96375; 36415; 80053; 83690; 93005; 96361; 96365; 99285; 74177; 81003; 83735; 84484; 85025; 93010; 99284; J0131; J1885; J2405; J3490

== ENCOUNTER 2025-01-18 01:32 | Outpatient (CLI) | payer MEDICARE, SELFPAY ==
--- NOTE | 2025-01-18 10:14 | DI.CT_ITS ---
Exam(s) CT CHEST WO EXAM: CT CHEST WO CLINICAL HISTORY: lung nodule,r91.1. TECHNIQUE: Imaging protocol: Axial computed tomography images were obtained and coronal and sagittal reformatted images were created and reviewed. Lung Computer Aided Detection (CAD) was utilized. COMPARISON: CT CT CHEST WO from 01/18/[address] ABDOMEN PELVIS W from 12/24/2024 FINDINGS: Tracheobronchial tree: Patent where visualized. No bronchiectasis is present. Pulmonary parenchyma: No consolidation or dominant measurable mass. There is a stable 3 mm nodule in the left upper lobe. No new pulmonary nodules are present. Mediastinum and Yamila: No dominant adenopathy or fluid collection. The esophagus is unremarkable.There is a small hiatal hernia. There is again seen a right- sided diaphragmatic hernia posteriorly. The right kidney is seen in a supradiaphragmatic position again. Thyroid gland: Unremarkable. Pleura: No effusion or pneumothorax. Heart: The heart is not dilated. There is moderate three-vessel coronary artery calcification. No pericardial effusion. Aorta: The ascending thoracic aorta measures 4.1 x 3.6 cm. Atherosclerotic calcification is present. Upper abdomen: Unremarkable. Lymph nodes: Within normal limits. Soft tissues: Unremarkable. Bones:Within normal limits for the patient's age. IMPRESSION: 1. Stable left upper lobe pulmonary nodule. 2. There are no new pulmonary nodules. RADIATION DOSE DELIVERED: 180.28mGy.cm Total DLP 180.28mGy.cm Total DLP DATA REPOSITORY: All CT scans at this facility are submitted to the National Radiology Data Registry (NRDR) Dose Index Registry (DIR) with the [employer] (ACR). RADIATION OPTIMIZATION: All CT scans at this facility use at least one of these dose optimization techniques: automated exposure control; mA and/or kV adjustment per patient size (includes targeted exams where dose is matched to clinical indication); or iterative reconstruction.
== END 2025-01-18 01:52 ==
PROVIDERS: PCP Family Medicine; Visit Provider Internal Medicine Critical Care Medicine
DX: R91.1 Solitary pulmonary nodule (principal)
CPT/HCPCS: 71250

== ENCOUNTER 2025-01-26 00:21 | Outpatient (CLI) | payer MEDICARE, SELFPAY ==
--- NOTE | 2025-01-26 | DI.US_ITS ---
APPROVED REPORT EXAM: Comprehensive 2D, Doppler, and color-flow Echocardiogram Patient Location: Out-Patient Senior C Developer: Linda Law RDCS (AE) Other Information Study Quality: Adequate Conclusion Normal left ventricular wall thickness and chamber size. Ejection fraction is 60%. Wall motion is normal Normal right ventricular size and function Both atria are normal in size There are no structural valvular abnormalities Trace mitral, aortic, and tricuspid regurgitation Estimated right ventricular systolic pressure is 37 mmHg Ascending aorta measures 3.64 cm Wall motion Left Ventricle The left ventricle is normal size. The left ventricular systolic function is normal. The left ventricular ejection fraction is within the normal range. There is normal left ventricular wall thickness. There is normal LV segmental wall motion. There is no ventricular septal defect visualized. LVEF is 60%. Right Ventricle The right ventricle is normal size. The right ventricular systolic function is normal. Atria The left atrium size is normal. The right atrium size is normal. The interatrial septum is intact with no evidence for an atrial septal defect. Aortic Valve The aortic valve is normal in structure. Aortic valve is trileaflet. There is no aortic valvular stenosis. Trace aortic regurgitation. Mitral Valve The mitral valve is normal in structure. No evidence of mitral valve stenosis. Trace mitral regurgitation. Tricuspid Valve The tricuspid valve is normal in structure. There is no tricuspid valve stenosis. Trace tricuspid regurgitation. The RVSP is 36.6_ mmHg. Pulmonic Valve The pulmonary valve is normal in structure. There is no pulmonic valvular stenosis. There is no pulmonic valvular regurgitation. Great Vessels Aortic root is mildly dilated. The ascending aorta is mildly dilated. Aortic arch is not well visualized. IVC is normal in size and collapses >50% with inspiration. Pericardium There is no pericardial effusion. 2D Dimensions IVSD d PLAX 0.84 cm F: 0.6-1.0 Ao Root d 3.40 cm F: 2.7 - 3.3 LVPW d PLAX 0.81 cm F: 0.6 - 1.0 Ao Asc Diam d 3.64 cm F: 2.3 - 3.1 LVID d PLAX 4.50 cm F: 3.8 - 5.2 LVDs 3.10 cm F: 2.2 - 3.5 LV EF Teichholz 59.0 % FS 31.13 % LV EDV (Teich) 91.0 mL LV ESV (Teich) 37.3 mL M-Mode TAPSE 2.39 cm (M/F) >1.7 Auto EF LV EDV A4C 109.1 mL LV EDV A2C 92.4 mL LV EDV BP 100.8 mL LV ESV A4C 45.4 mL LV ESV A2C 37.0 mL LV ESV BP 40.8 mL LVEF(%) A4C 58.4 % LVEF(%) A2C 59.9 % LVEF(%) BP 59.5 % LV SV A4C 63.7 ml LV SV A2C 55.4 ml LV SV BP 60.0 ml LV CO A4C 4.6 L/min LV CO A2C 3.9 L/min LV CO BP 4.3 L/min HR A4C 72.88 BPM HR A2C 70.31 BPM LV EDV Index (BP) LA Volume LA Length A4C 4.7 cm LA Length A2C 5.2 cm LA Area A4C s 14.74 cm2 LA Area A2C s 15.42 cm2 LA Vol A4C A-L 38.99 mL LA Vol A2C A-L 38.69 mL LA Vol Biplane A-L 40.8 mL LA Vol/BSA A4C A-L LA Vol/BSA A2C A-L LA Vol/BSA BP A-L 26.3 mL/m2 LA Vol A4C MOD 36.4 mL LA Vol A2C MOD 36.9 mL LA Vol BP MOD 38.5 mL RA Volume RA Area A4C 12.4 cm2 RA ESV A4C (A-L) 30.5mL RA Vol/BSA A4C A-L RA Length A4C 4.3 cm RA ESV A4C (MOD) 28.1mL LV Diastology MV E' medial 0.070 (>0.07 m/s) MV E Vmax 1.09 (0.4-1.3 m/s) MV E/E' MED 15.73 (<14) MV A Vmax 1.10 (0.4-1.3 m/s) MV E' lateral 0.086 (>0.1 m/s) E/A Ratio 1.0 MV E/E' LAT 12.78 (<14) MV E' Average 0.078 m/s MV E/E'(average) 14.10 Aortic Valve AoV Vmax 1.55 m/s LVOT Vmax 1.34 m/s AoV Peak Grad 30.2 mmHg LVOT Peak Grad 7.2 mmHg AoV Area (Vmax) 2.37 cm2 LVOT VTI 0.323 m AoV VTI 0.387 m LVOT Mean Grad 3.5 mmHg AoV Mean Eleazar. 1.03 m/s LVOT SV 88.37 mL AoV Mean Grad 4.9 mmHg LVOT Diam s 1.85 cm AoV Area (VTI) 2.29 cm2 AV Regurg Peak Gr. 9.66 mmHg Velocity Ratio 0.86 AR Decel [place] 1.5m/sec2 AR DT 2372 msec AR PHT 688 msec AR Vmax 3.56 m/s Mitral Valve MV DT 202 (160-240 msec) MV Vmax TIPS 1.09 m/s MV Mean Grad 2.5 (<2mmHg) MV VTI 0.400 m Pulmonary Valve PV Vmax 0.97 (0.5-1.5 m/s) RVOT Vmax 0.65 m/s PV Peak Grad 3.7 mmHg RVOT Peak Gr. 1.7 mmHg PV Mean Eleazar 0.65 m/s RVOT VTI 0.172 m PV Mean Grad 2.0 mmHg RVOT Mean Gr. 0.9 mmHg Tricuspid Valve RA Pressure 3.00 mmHg TR Vmax 2.90 m/s TV S' 0.16 m/s TR Peak Grad 33.6 mmHg RVSP (TR) 36.6 mmHg
== END 2025-01-26 00:41 ==
LOC: DI 00:21
PROVIDERS: PCP Family Medicine; Visit Provider Family Medicine
DX: R07.9 Chest pain, unspecified (principal)
CPT/HCPCS: 93306

== ENCOUNTER → 2025-02-14 10:33 | Outpatient (BNVA) | payer MEDICARE, SELFPAY | PROVIDERS: PCP Family Medicine; Referring Provider Family Medicine; Visit Provider Physician Assistant Surgical | DX: J44.9 Chronic obstructive pulmonary disease, unspecified (principal); J96.11 Chronic respiratory failure with hypoxia; Z87.891 Personal history of nicotine dependence | CPT/HCPCS: 99214; G0296 ==